=== PATIENT | male | born 1950 | race Caucasian/White ===

== ENCOUNTER → 2017-03-18 | Outpatient (REF) | payer MEDICARE, MEDICAID ==
[2017-03-18 13:29] LABS: ALBUMIN/GLOBULIN RATIO 1.38 (1.00-1.93); ALKALINE PHOSPHATASE 90 U/L (45-117); ALT/SGPT 28 U/L (12-78); ANION GAP 6 MEQ/L (8-16); AST/SGOT 15 U/L (15-37); BILIRUBIN,TOTAL 0.8 MG/DL (0.2-1.0); BLOOD UREA NITROGEN 19 MG/DL (7-18); CALCIUM LEVEL 9.1 MG/DL (8.8-10.2); CARBON DIOXIDE LEVEL 31 MEQ/L (21-32); CHLORIDE LEVEL 103 MEQ/L (98-107); CHOLESTEROL LEVEL 142 MG/DL (<200); CREATININE FOR GFR 1.02 MG/DL (0.70-1.30); GLOMERULAR FILTRATION RATE > 60.0 (>49); GLUCOSE, FASTING 152 MG/DL (80-110); POTASSIUM SERUM 4.7 MEQ/L (3.5-5.1); SODIUM LEVEL 140 MEQ/L (136-145); TOTAL PROTEIN 6.9 GM/DL (6.4-8.2); TRIGLYCERIDES LEVEL 253 MG/DL (<150)
== END ==
LOC: M SFHCCLAY 07:12
PROVIDERS: ATTEND Family Medicine
DX: E78.2 Mixed hyperlipidemia (principal); E11.65 Type 2 diabetes mellitus with hyperglycemia

== ENCOUNTER → 2017-09-07 | Outpatient (REF) | payer MEDICARE, MEDICAID ==
[2017-09-07 11:56] LABS: ESTIMATED AVERAGE GLUCOSE 154 MG/DL (60-110)
[2017-09-07 11:59] LABS: ALKALINE PHOSPHATASE 82 U/L (45-117); ALT/SGPT 26 U/L (12-78); ANION GAP 6 MEQ/L (8-16); AST/SGOT 17 U/L (7-37); BILIRUBIN,TOTAL 0.7 MG/DL (0.2-1.0); BLOOD UREA NITROGEN 22 MG/DL (7-18); CALCIUM LEVEL 8.8 MG/DL (8.8-10.2); CARBON DIOXIDE LEVEL 31 MEQ/L (21-32); CHLORIDE LEVEL 105 MEQ/L (98-107); CHOLESTEROL LEVEL 132 MG/DL (<200); CREATININE FOR GFR 0.94 MG/DL (0.70-1.30); GLOMERULAR FILTRATION RATE > 60.0 (>49); GLUCOSE, FASTING 164 MG/DL (70-100); HDL CHOLESTEROL 33 MG/DL (>40); LDL CHOLESTEROL 42.6 MG/DL (<100); NON-HDL-C 99 MG/DL; POTASSIUM SERUM 4.4 MEQ/L (3.5-5.1); PSA SCREENING 1.84 NG/ML (< 4.0); SODIUM LEVEL 142 MEQ/L (136-145); TOTAL PROTEIN 6.5 GM/DL (6.4-8.2); TRIGLYCERIDES LEVEL 282 MG/DL (<150)
== END ==
LOC: M SFHCCLAY 07:08
DX: E11.65 Type 2 diabetes mellitus with hyperglycemia (principal); E78.2 Mixed hyperlipidemia; Z12.5 Encounter for screening for malignant neoplasm of prostate
CPT/HCPCS: 80053

== ENCOUNTER → 2018-02-11 | Outpatient (REF) | payer MEDICARE, MEDICAID ==
[2018-02-11 11:39] LABS: ANION GAP 7 MEQ/L (8-16); BLOOD UREA NITROGEN 20 MG/DL (7-18); CALCIUM LEVEL 8.6 MG/DL (8.8-10.2); CARBON DIOXIDE LEVEL 30 MEQ/L (21-32); CHLORIDE LEVEL 105 MEQ/L (98-107); CREATININE FOR GFR 1.08 MG/DL (0.70-1.30); GLOMERULAR FILTRATION RATE > 60.0 (>49); GLUCOSE, FASTING 142 MG/DL (70-100); POTASSIUM SERUM 4.4 MEQ/L (3.5-5.1); SODIUM LEVEL 142 MEQ/L (136-145)
[2018-02-11 12:58] LABS: ESTIMATED AVERAGE GLUCOSE 151 MG/DL (60-110); HEMOGLOBIN A1c 6.9 %
== END ==
LOC: M SFHCCLAY 06:57
DX: E11.9 Type 2 diabetes mellitus without complications (principal)
CPT/HCPCS: 83036

== ENCOUNTER → 2018-08-02 | Outpatient (REF) | payer MEDICARE, MEDICAID ==
[2018-08-02 13:08] LABS: ALBUMIN 3.7 GM/DL (3.2-5.2); ALT/SGPT 30 U/L (12-78); BILIRUBIN,TOTAL 0.8 MG/DL (0.2-1.0); BLOOD UREA NITROGEN 20 MG/DL (7-18); CALCIUM LEVEL 8.6 MG/DL (8.8-10.2); CARBON DIOXIDE LEVEL 29 MEQ/L (21-32); CHLORIDE LEVEL 103 MEQ/L (98-107); CHOLESTEROL LEVEL 140 MG/DL (<200); CHOLESTEROL RISK RATIO 4.117 (<5); CREATININE FOR GFR 1.01 MG/DL (0.70-1.30); GLOMERULAR FILTRATION RATE > 60.0 (>49); GLUCOSE, FASTING 173 MG/DL (70-100); HDL CHOLESTEROL 34 MG/DL (>40); LDL CHOLESTEROL 53 MG/DL (<100); NON-HDL-C 106 MG/DL; POTASSIUM SERUM 4.3 MEQ/L (3.5-5.1); SODIUM LEVEL 139 MEQ/L (136-145); TOTAL PROTEIN 6.7 GM/DL (6.4-8.2); TRIGLYCERIDES LEVEL 265 MG/DL (<150)
[2018-08-02 13:25] LABS: MALB URINE SIEMENS 19.1 MG/L
[2018-08-02 13:45] LABS: HEMOGLOBIN A1c 7.7 %
== END ==
LOC: M SFHCCLAY 07:11
PROVIDERS: ATTEND Family Medicine
DX: E11.9 Type 2 diabetes mellitus without complications (principal)

== ENCOUNTER → 2018-11-01 | Outpatient (REF) | payer MEDICARE, MEDICAID ==
[2018-11-01 11:25] LABS: BASO # 0.1 10^3/uL (0.0-0.2); BASO % 0.5 % (0.0-1.0); EOS # 0.2 10^3/uL (0.0-0.50); EOS % 1.8 % (0.0-3.0); HEMATOCRIT 43.4 % (42.0-52.0); HEMOGLOBIN 15.3 g/dl (13.5-17.5); LYMPH # 1.8 10^3/uL (1.5-4.5); LYMPH % 17.6 % (24.0-44.0); MEAN CORPUSCULAR HEMOGLOBIN 31.8 pg (27.0-33.0); MEAN CORPUSCULAR HGB CONC 35.3 g/dl (32.0-36.5); MEAN CORPUSCULAR VOLUME 90.2 fl (80.0-96.0); MONO # 0.8 10^3/uL (0.0-0.8); MONO % 7.4 % (0.0-5.0); NEUTROPHILS # 7.6 10^3/uL (1.8-7.7); NEUTROPHILS % 72.4 % (36.0-66.0); PLATELET COUNT, AUTOMATED 135 10^3/uL (150-450); RED BLOOD COUNT 4.81 10^6/uL (4.30-6.10); WHITE BLOOD COUNT 10.4 10^3/uL (4.0-10.0)
[2018-11-01 12:13] LABS: BLOOD UREA NITROGEN 22 MG/DL (7-18); CALCIUM LEVEL 8.6 MG/DL (8.8-10.2); CARBON DIOXIDE LEVEL 28 MEQ/L (21-32); CHLORIDE LEVEL 105 MEQ/L (98-107); CREATININE FOR GFR 1.04 MG/DL (0.70-1.30); GLOMERULAR FILTRATION RATE > 60.0 (>42); GLUCOSE, FASTING 211 MG/DL (70-100); POTASSIUM SERUM 4.5 MEQ/L (3.5-5.1); SODIUM LEVEL 139 MEQ/L (136-145)
== END ==
LOC: M SFHCCLAY 07:06
PROVIDERS: ATTEND Family Medicine
DX: R59.0 Localized enlarged lymph nodes (principal); I10 Essential (primary) hypertension

== ENCOUNTER 2019-01-11 12:37 | Emergency (ER) | payer MEDICARE, MEDICAID ==
[~2019-01-11] VITALS: Ht 180.3 cm; Wt 129.7 kg
[2019-01-11 12:38] VITALS: BP 179/92
[2019-01-11] MEDS ORDERED: diazePAM 10 MG TAB PO ONE (14:15)
[2019-01-11] MEDS ORDERED: ACETAMINOPH W/CODEINE #3 TAB UD PO ONE (14:15)
[2019-01-11] MEDS ORDERED: RANO5TAB (14:42)
[2019-01-11] MEDS ORDERED: LISI10TA4 (14:42)
[2019-01-11] MEDS ORDERED: NITR0.4D6 (14:42)
[2019-01-11] MEDS ORDERED: SIMV20TA2 (14:42)
[2019-01-11] MEDS ORDERED: CLOP75TA2 (14:42)
[2019-01-11] MEDS ORDERED: FORT500T3 (14:42)
[2019-01-11] MEDS ORDERED: FISH1000 PO (14:42)
[2019-01-11] MEDS ORDERED: LOPR1TAB6 (14:42)
[2019-01-11] MEDS ORDERED: ASPI81TA85 PO (14:42)
[2019-01-11] MEDS ORDERED: NITROGLYCERIN (14:42)
--- NOTE | 2019-01-11 14:49 | REP ---
LUMBAR SPINE, FIVE VIEWS: HISTORY: Right back tenderness. There is no acute fracture. The lumbar intervertebral discs are decreased in height, consistent with disc degeneration. Osteophytes are present throughout the lumbar spine. There is narrowing of the L4-5 and L5-S1 facet joints with associated sclerosis. There are 6 mm of grade 1 spondylolisthesis of L4 on L5. Impression: Degenerative change as described above. Electronically Signed by Santana Dow MD 01/11/2019 02:50 P
[2019-01-11] MEDS ORDERED: TYLETAB14 PO (14:52)
[2019-01-11] MEDS ORDERED: VALI5TAB PO (14:52)
== END 2019-01-11 15:14 | disposition home or self-care (01) ==
LOC: M ED 12:37
DX: M51.37 Other intervertebral disc degeneration, lumbosacral region (principal); M54.5 Low back pain; M62.830 Muscle spasm of back; I10 Essential (primary) hypertension; I25.2 Old myocardial infarction; Z95.5 Presence of coronary angioplasty implant and graft; Z79.899 Other long term (current) drug therapy; Z79.02 Long term (current) use of antithrombotics/antiplatelets; Z79.82 Long term (current) use of aspirin

== ENCOUNTER → 2019-02-09 | Outpatient (REF) | payer MEDICARE, MEDICAID ==
[~2019-02-09] MED LIST: ASPI81TA85 PO; CLOP75TA2; FISH1000 PO; FORT500T3; LISI10TA4; LOPR1TAB6; NITR0.4D6; NITROGLYCERIN; RANO500T7; SIMV20TA2; TYLETAB14 PO; VALI5TAB PO
[2019-02-09 11:55] LABS: ALBUMIN 3.6 GM/DL (3.2-5.2); ALT/SGPT 22 U/L (12-78); BILIRUBIN,TOTAL 0.6 MG/DL (0.2-1.0); BLOOD UREA NITROGEN 20 MG/DL (7-18); CALCIUM LEVEL 8.6 MG/DL (8.8-10.2); CARBON DIOXIDE LEVEL 29 MEQ/L (21-32); CHLORIDE LEVEL 106 MEQ/L (98-107); CREATININE FOR GFR 0.91 MG/DL (0.70-1.30); GLOMERULAR FILTRATION RATE > 60.0 (>42); GLUCOSE, FASTING 175 MG/DL (70-100); POTASSIUM SERUM 4.1 MEQ/L (3.5-5.1); SODIUM LEVEL 141 MEQ/L (136-145); TOTAL PROTEIN 6.6 GM/DL (6.4-8.2)
[2019-02-09 13:20] LABS: HEMOGLOBIN A1c 7.6 %
== END ==
LOC: M SFHCCLAY 06:57
PROVIDERS: ATTEND Family Medicine
DX: E11.9 Type 2 diabetes mellitus without complications (principal)

== ENCOUNTER → 2019-08-11 | Outpatient (REF) | payer MEDICARE, MEDICAID ==
[~2019-08-11] MED LIST changes: -SIMV20TA2; +SIMV20TA22
[2019-08-11 17:29] LABS: ALBUMIN 3.8 GM/DL (3.2-5.2); ALT/SGPT 24 U/L (12-78); BLOOD UREA NITROGEN 20 MG/DL (7-18); CALCIUM LEVEL 9.1 MG/DL (8.8-10.2); CARBON DIOXIDE LEVEL 30 MEQ/L (21-32); CHLORIDE LEVEL 102 MEQ/L (98-107); CHOLESTEROL LEVEL 140 MG/DL (<200); CHOLESTEROL RISK RATIO 4.117 (<5); CREATININE FOR GFR 1.01 MG/DL (0.70-1.30); GLOMERULAR FILTRATION RATE > 60.0 (>42); GLUCOSE, FASTING 167 MG/DL (70-100); HDL CHOLESTEROL 34 MG/DL (>40); LDL CHOLESTEROL 50 MG/DL (<100); NON-HDL-C 106 MG/DL; POTASSIUM SERUM 4.6 MEQ/L (3.5-5.1); SODIUM LEVEL 139 MEQ/L (136-145); TOTAL PROTEIN 6.7 GM/DL (6.4-8.2); TRIGLYCERIDES LEVEL 280 MG/DL (<150)
[2019-08-11 17:45] LABS: CREATININE, URINE 61.4 MG/DL; MALB URINE SIEMENS 12.4 MG/L; MAU/CREAT RATIO 20.1 MCG/MG (0.0-30.0)
[2019-08-11 17:49] LABS: HEMOGLOBIN A1c 7.6 %
== END ==
LOC: M SFHCCLAY 11:22
PROVIDERS: ATTEND Family Medicine
DX: E11.9 Type 2 diabetes mellitus without complications (principal)

== ENCOUNTER → 2020-02-13 | Outpatient (REF) | payer MEDICARE, MEDICAID ==
[~2020-02-13] MED LIST changes: -ASPI81TA85 PO; +ASPI81TA86 PO
[2020-02-13 13:55] LABS: ALBUMIN 3.7 GM/DL (3.2-5.2); ALT/SGPT 24 U/L (12-78); BILIRUBIN,TOTAL 0.6 MG/DL (0.2-1.0); BLOOD UREA NITROGEN 15 MG/DL (7-18); CALCIUM LEVEL 8.6 MG/DL (8.8-10.2); CARBON DIOXIDE LEVEL 27 MEQ/L (21-32); CHLORIDE LEVEL 102 MEQ/L (98-107); GLOMERULAR FILTRATION RATE > 60.0 (>42); GLUCOSE, FASTING 286 MG/DL (70-100); POTASSIUM SERUM 4.1 MEQ/L (3.5-5.1); SODIUM LEVEL 136 MEQ/L (136-145); TOTAL PROTEIN 6.6 GM/DL (6.4-8.2)
[2020-02-13 19:12] LABS: HEMOGLOBIN A1c 9.4 %
== END ==
LOC: M SFHCCLAY 07:00
PROVIDERS: ATTEND Family Medicine
DX: E11.9 Type 2 diabetes mellitus without complications (principal)

== ENCOUNTER → 2020-05-15 | Outpatient (REF) | payer MEDICARE, MEDICAID ==
[2020-05-15 13:40] LABS: BASO % 0.4 % (0.0-1.0); EOS # 0.2 10^3/uL (0.0-0.5); EOS % 2.2 % (0.0-3.0); HEMATOCRIT 42.9 % (42.0-52.0); HEMOGLOBIN 14.7 g/dl (13.5-17.5); LYMPH # 2.5 10^3/uL (1.5-5.0); LYMPH % 26.3 % (24.0-44.0); MEAN CORPUSCULAR HEMOGLOBIN 31.7 pg (27.0-33.0); MEAN CORPUSCULAR HGB CONC 34.3 g/dl (32.0-36.5); MEAN CORPUSCULAR VOLUME 92.5 fl (80.0-96.0); MONO # 0.6 10^3/uL (0.0-0.8); MONO % 6.2 % (0.0-5.0); NEUTROPHILS # 6.2 10^3/uL (1.5-8.5); NEUTROPHILS % 64.6 % (36.0-66.0); PLATELET COUNT, AUTOMATED 158 10^3/uL (150-450); RED BLOOD COUNT 4.64 10^6/uL (4.30-6.10); WHITE BLOOD COUNT 9.5 10^3/uL (4.0-10.0)
[2020-05-15 14:02] LABS: BLOOD UREA NITROGEN 18 MG/DL (7-18); CARBON DIOXIDE LEVEL 29 MEQ/L (21-32); CHLORIDE LEVEL 105 MEQ/L (98-107); CREATININE FOR GFR 0.93 MG/DL (0.70-1.30); GLOMERULAR FILTRATION RATE > 60.0 (>42); GLUCOSE, FASTING 155 MG/DL (70-100); MAGNESIUM LEVEL 1.8 MG/DL (1.8-2.4); POTASSIUM SERUM 4.3 MEQ/L (3.5-5.1); SODIUM LEVEL 141 MEQ/L (136-145)
[2020-05-15 14:12] LABS: FOLATE 11.2 NG/ML (>5.4); VITAMIN B12 LEVEL 341 PG/ML (247-911)
[2020-05-15 14:55] LABS: HEMOGLOBIN A1c 7.3 %
== END ==
LOC: M SFHCCLAY 07:04
PROVIDERS: ATTEND Family Medicine
DX: I10 Essential (primary) hypertension (principal); E11.42 Type 2 diabetes mellitus with diabetic polyneuropathy; Z79.84 Long term (current) use of oral hypoglycemic drugs

== ENCOUNTER → 2020-08-16 | Outpatient (REF) | payer MEDICARE, MEDICAID ==
[2020-08-16 12:23] LABS: BLOOD UREA NITROGEN 19 MG/DL (7-18); CALCIUM LEVEL 8.9 MG/DL (8.8-10.2); CARBON DIOXIDE LEVEL 32 MEQ/L (21-32); CHLORIDE LEVEL 104 MEQ/L (98-107); CHOLESTEROL LEVEL 142 MG/DL (<200); CHOLESTEROL RISK RATIO 3.837 (<5); CREATININE FOR GFR 0.98 MG/DL (0.70-1.30); GLOMERULAR FILTRATION RATE > 60.0 (>42); GLUCOSE, FASTING 214 MG/DL (70-100); HDL CHOLESTEROL 37 MG/DL (>40); LDL CHOLESTEROL 47 MG/DL (<100); NON-HDL-C 105 MG/DL; POTASSIUM SERUM 4.4 MEQ/L (3.5-5.1); SODIUM LEVEL 139 MEQ/L (136-145); TRIGLYCERIDES LEVEL 291 MG/DL (<150)
[2020-08-16 15:20] LABS: HEMOGLOBIN A1c 7.6 %
[2020-08-17 12:38] LABS: CREATININE, URINE 71.3 MG/DL; MALB URINE SIEMENS 20.3 MG/L; MAU/CREAT RATIO 28.4 MCG/MG (0.0-30.0)
== END ==
LOC: M SFHCCLAY 06:59
PROVIDERS: ATTEND Family Medicine
DX: E11.9 Type 2 diabetes mellitus without complications (principal)

== ENCOUNTER → 2020-11-15 | Outpatient (REF) | payer MEDICARE, MEDICAID ==
[~2020-11-15] MED LIST changes: +LISI10TA22; -LISI10TA4
[2020-11-15 13:36] LABS: BLOOD UREA NITROGEN 20 MG/DL (7-18); CARBON DIOXIDE LEVEL 32 MEQ/L (21-32); CHLORIDE LEVEL 103 MEQ/L (98-107); CREATININE FOR GFR 0.96 MG/DL (0.70-1.30); GLOMERULAR FILTRATION RATE > 60.0 (>42); GLUCOSE, FASTING 309 MG/DL (70-100); POTASSIUM SERUM 4.4 MEQ/L (3.5-5.1); SODIUM LEVEL 138 MEQ/L (136-145)
[2020-11-15 14:22] LABS: HEMOGLOBIN A1c 9.7 %
== END ==
LOC: M SFHCCLAY 06:49
PROVIDERS: ATTEND Family Medicine
DX: E11.9 Type 2 diabetes mellitus without complications (principal)

== ENCOUNTER → 2021-02-13 | Outpatient (REF) | payer MEDICARE, MEDICAID ==
[2021-02-13 12:23] LABS: HEMOGLOBIN A1c 8.3 %
[2021-02-13 12:34] LABS: ALT/SGPT 31 U/L (12-78); BILIRUBIN,TOTAL 0.8 MG/DL (0.2-1.0); BLOOD UREA NITROGEN 18 MG/DL (7-18); CALCIUM LEVEL 8.8 MG/DL (8.8-10.2); CARBON DIOXIDE LEVEL 30 MEQ/L (21-32); CHLORIDE LEVEL 103 MEQ/L (98-107); CREATININE FOR GFR 0.97 MG/DL (0.70-1.30); GLOMERULAR FILTRATION RATE > 60.0 (>42); GLUCOSE, FASTING 188 MG/DL (70-100); POTASSIUM SERUM 4.1 MEQ/L (3.5-5.1); SODIUM LEVEL 139 MEQ/L (136-145); TOTAL PROTEIN 6.8 GM/DL (6.4-8.2)
== END ==
LOC: M SFHCCLAY 07:12
PROVIDERS: ATTEND Family Medicine
DX: E11.9 Type 2 diabetes mellitus without complications (principal)

== ENCOUNTER → 2021-05-16 | Outpatient (REF) | payer MEDICARE, MEDICAID ==
[2021-05-16 12:19] LABS: HEMOGLOBIN A1c 6.6 %
[2021-05-16 13:56] LABS: ALBUMIN 3.6 GM/DL (3.2-5.2); ALT/SGPT 25 U/L (12-78); BILIRUBIN,TOTAL 0.5 MG/DL (0.2-1.0); BLOOD UREA NITROGEN 20 MG/DL (7-18); CALCIUM LEVEL 9.3 MG/DL (8.8-10.2); CARBON DIOXIDE LEVEL 29 MEQ/L (21-32); CHLORIDE LEVEL 104 MEQ/L (98-107); GLOMERULAR FILTRATION RATE > 60.0 (>42); GLUCOSE, FASTING 194 MG/DL (70-100); POTASSIUM SERUM 4.3 MEQ/L (3.5-5.1); SODIUM LEVEL 140 MEQ/L (136-145); TOTAL PROTEIN 6.5 GM/DL (6.4-8.2)
== END ==
LOC: M SFHCCLAY 06:57
PROVIDERS: ATTEND Family Medicine
DX: E11.9 Type 2 diabetes mellitus without complications (principal)

== ENCOUNTER → 2021-08-29 | Outpatient (REF) | payer MEDICARE, MEDICAID ==
[2021-08-29 11:47] LABS: BASO % 0.4 % (0.0-1.0); EOS # 0.2 10^3/uL (0.0-0.5); EOS % 1.5 % (0.0-3.0); HEMATOCRIT 47.5 % (42.0-52.0); HEMOGLOBIN 16.3 g/dl (13.5-17.5); LYMPH # 1.9 10^3/uL (1.5-5.0); LYMPH % 18.6 % (24.0-44.0); MEAN CORPUSCULAR HEMOGLOBIN 31.9 pg (27.0-33.0); MEAN CORPUSCULAR HGB CONC 34.3 g/dl (32.0-36.5); MONO # 0.8 10^3/uL (0.0-0.8); MONO % 7.6 % (2.0-8.0); NEUTROPHILS # 7.5 10^3/uL (1.5-8.5); NEUTROPHILS % 71.4 % (36.0-66.0); PLATELET COUNT, AUTOMATED 145 10^3/uL (150-450); RED BLOOD COUNT 5.11 10^6/uL (4.30-6.10); WHITE BLOOD COUNT 10.4 10^3/uL (4.0-10.0)
[2021-08-29 12:23] LABS: ALBUMIN 3.7 GM/DL (3.2-5.2); ALT/SGPT 24 U/L (12-78); BILIRUBIN,TOTAL 0.7 MG/DL (0.2-1.0); BLOOD UREA NITROGEN 17 MG/DL (7-18); CALCIUM LEVEL 8.9 MG/DL (8.8-10.2); CARBON DIOXIDE LEVEL 30 MEQ/L (21-32); CHLORIDE LEVEL 105 MEQ/L (98-107); CHOLESTEROL LEVEL 124 MG/DL (<200); CHOLESTEROL RISK RATIO 3.647 (<5); CREATININE FOR GFR 1.03 MG/DL (0.70-1.30); GLOMERULAR FILTRATION RATE > 60.0 (>42); GLUCOSE, FASTING 174 MG/DL (70-100); HDL CHOLESTEROL 34 MG/DL (>40); LDL CHOLESTEROL 47 MG/DL (<100); NON-HDL-C 90 MG/DL; POTASSIUM SERUM 4.4 MEQ/L (3.5-5.1); SODIUM LEVEL 141 MEQ/L (136-145); TOTAL PROTEIN 6.6 GM/DL (6.4-8.2); TRIGLYCERIDES LEVEL 217 MG/DL (<150)
[2021-08-29 12:29] LABS: HEMOGLOBIN A1c 6.8 %
== END ==
LOC: M SFHCCLAY 08:21
PROVIDERS: ATTEND Family Medicine
DX: E11.9 Type 2 diabetes mellitus without complications (principal); E78.2 Mixed hyperlipidemia; I10 Essential (primary) hypertension

== ENCOUNTER 2021-11-13 11:04 | Inpatient (IN) | payer MEDICARE, MEDICAID ==
[~2021-11-13] VITALS: Ht 180.3 cm; Wt 126.0 kg
[2021-11-13 14:18] VITALS: BP 158/90
[2021-11-13] MEDS ORDERED: GLUCAGON INJ 1MG VIAL SC PRN (15:20)
[2021-11-13] MEDS ORDERED: DEXTROSE 50% 50 ML SYRINGE IV PRN (15:20)
[2021-11-13] MEDS ORDERED: GLUCOSE 4GM CHEW TABLET PO PRN (15:20)
[2021-11-13 15:57] LABS: BASO % 0.3 % (0.0-1.0); EOS % 0.3 % (0.0-3.0); HEMATOCRIT 43.8 % (42.0-52.0); HEMOGLOBIN 15.4 g/dl (13.5-17.5); MEAN CORPUSCULAR HGB CONC 35.2 g/dl (32.0-36.5); MEAN CORPUSCULAR VOLUME 91.1 fl (80.0-96.0); MONO # 0.7 10^3/uL (0.0-0.8); NEUTROPHILS # 6.5 10^3/uL (1.5-8.5); NEUTROPHILS % 70.1 % (36.0-66.0); PLATELET COUNT, AUTOMATED 165 10^3/uL (150-450); RED BLOOD COUNT 4.81 10^6/uL (4.30-6.10); WHITE BLOOD COUNT 9.3 10^3/uL (4.0-10.0)
[2021-11-13 15:58] VITALS: BP 118/69
[2021-11-13 16:12] LABS: INR 0.87; PARTIAL THROMBOPLASTIN TIME 27.5 SECONDS (25.9-37.0); PROTHROMBIN TIME 12.2 SECONDS (12.7-14.5)
[2021-11-13 16:28] LABS: ALBUMIN 3.5 GM/DL (3.2-5.2); ALT/SGPT 25 U/L (12-78); BILIRUBIN,TOTAL 0.7 MG/DL (0.2-1.0); BLOOD UREA NITROGEN 21 MG/DL (7-18); CARBON DIOXIDE LEVEL 29 MEQ/L (21-32); CHLORIDE LEVEL 106 MEQ/L (98-107); CREATININE FOR GFR 0.99 MG/DL (0.70-1.30); GLOMERULAR FILTRATION RATE > 60.0 (>42); GLUCOSE, FASTING 143 MG/DL (70-100); POTASSIUM SERUM 3.9 MEQ/L (3.5-5.1); SODIUM LEVEL 142 MEQ/L (136-145); TOTAL PROTEIN 6.7 GM/DL (6.4-8.2)
[2021-11-13 16:29] LABS: C REACTIVE PROTEIN QUANTITATIV 1.68 MG/DL (0.00-0.30); CK-MB VALUE MASS 1.8 NG/ML (<3.6); MB/CK RELATIVE INDEX 4.5 (< OR =4)
[2021-11-13] MEDS ORDERED: FUROSEMIDE 40MG/4ML VIAL (J1940) IV ONE (17:00)
[2021-11-13] MEDS ORDERED: ALBUTEROL SULFATE 2.5 MG/0.5 ML INH NEB SOLN NEB PRN (17:10)
[2021-11-13] MEDS ORDERED: PLAV1TAB2 PO (17:29)
[2021-11-13] MEDS ORDERED: LYRI200C PO (17:29)
[2021-11-13] MEDS ORDERED: JANU50TA25 PO (17:29)
[2021-11-13] MEDS ORDERED: METO50TA7 PO (17:29)
[2021-11-13] MEDS ORDERED: LISI10TA22 PO (17:29)
[2021-11-13] MEDS ORDERED: RANO500T7 PO (17:29)
[2021-11-13] MEDS ORDERED: JARD1TAB PO (17:29)
[2021-11-13] MEDS ORDERED: NITR0.4D6 TD (17:29)
[2021-11-13] MEDS ORDERED: SIMV20TA22 PO (17:29)
[2021-11-13] MEDS ORDERED: HOME MED LIST COMPLETE! XX SCH (17:35)
[2021-11-13] MEDS: HumaLOG INSULIN (NovoLOG) PER UNIT SC SCH ×2 (17:40→21:19)
[2021-11-13] MEDS ORDERED: ONDANSETRON 4MG/2ML VIAL IV PRN (18:30)
[2021-11-13 20:06] VITALS: BP 110/70
[2021-11-13] MEDS: **NOTE PATIENT COMMENT** MISC XX SCH (21:05)
[2021-11-13 21:06] VITALS: BP 89/50
[2021-11-13] MEDS: SIMVASTATIN 20 MG TAB PO SCH (21:19)
[2021-11-13] MEDS: PREGABALIN 100 MG CAP (LYRICA) PO SCH (21:19)
[2021-11-13] MEDS: RANOLAZINE 500 MG ER TAB PO SCH (21:19)
[2021-11-14] VITALS (8 sets, daily range): BP systolic 119–166; BP diastolic 61–80
[2021-11-14] MEDS: PREGABALIN 100 MG CAP (LYRICA) PO SCH ×2 (08:36→20:33)
[2021-11-14] MEDS: HumaLOG INSULIN (NovoLOG) PER UNIT SC SCH ×4 (08:36→20:33)
[2021-11-14] MEDS: OSELTAMIVIR PHOSPHATE 75 MG CAP (TAMIFLU) PO SCH ×2 (08:36→20:33)
[2021-11-14] MEDS: CLOPIDOGREL 75 MG TAB PO SCH (08:37)
[2021-11-14] MEDS: RANOLAZINE 500 MG ER TAB PO SCH ×2 (08:37→20:33)
[2021-11-14] MEDS: NITROGLYCERIN 0.4 MG/HR PATCH TD SCH (08:56)
[2021-11-14] MEDS ORDERED: PREVNAR 13 VACCINE SYRINGE IM ONE (09:00)
[2021-11-14] MEDS ORDERED: FUROSEMIDE 40MG/4ML VIAL (J1940) IV ONE (10:15)
[2021-11-14 11:12] LABS: BASO % 0.2 % (0.0-1.0); EOS % 0.3 % (0.0-3.0); HEMATOCRIT 45.5 % (42.0-52.0); HEMOGLOBIN 15.5 g/dl (13.5-17.5); LYMPH # 1.4 10^3/uL (1.5-5.0); LYMPH % 11.4 % (24.0-44.0); MEAN CORPUSCULAR HEMOGLOBIN 31.1 pg (27.0-33.0); MEAN CORPUSCULAR HGB CONC 34.1 g/dl (32.0-36.5); MEAN CORPUSCULAR VOLUME 91.4 fl (80.0-96.0); MONO # 0.7 10^3/uL (0.0-0.8); MONO % 5.5 % (2.0-8.0); NEUTROPHILS # 10.3 10^3/uL (1.5-8.5); NEUTROPHILS % 82.2 % (36.0-66.0); PLATELET COUNT, AUTOMATED 155 10^3/uL (150-450); RED BLOOD COUNT 4.98 10^6/uL (4.30-6.10); WHITE BLOOD COUNT 12.5 10^3/uL (4.0-10.0)
[2021-11-14 11:32] LABS: BLOOD UREA NITROGEN 24 MG/DL (7-18); CALCIUM LEVEL 8.7 MG/DL (8.8-10.2); CARBON DIOXIDE LEVEL 31 MEQ/L (21-32); CHLORIDE LEVEL 104 MEQ/L (98-107); CREATININE FOR GFR 1.11 MG/DL (0.70-1.30); GLOMERULAR FILTRATION RATE > 60.0 (>42); GLUCOSE, FASTING 232 MG/DL (70-100); SODIUM LEVEL 141 MEQ/L (136-145)
[2021-11-14] MEDS: ALBUTEROL SULFATE 2.5 MG/0.5 ML INH NEB SOLN NEB SCH ×2 (13:12→19:55)
[2021-11-14] MEDS ORDERED: fentaNYL 100 MCG/2 ML INJECTION As Ordered ONE (17:22)
[2021-11-14] MEDS ORDERED: MIDAZOLAM INJ 2MG/2ML VIAL (J2250 PER 1MG) As Ordered ONE (17:22)
[2021-11-14] MEDS ORDERED: LIDOCAINE 2% 100MG/5ML SDV (FOR ANES.) As Ordered ONE (17:23)
[2021-11-14] MEDS ORDERED: propofoL 200 MG/20 ML VIAL As Ordered ONE (17:23)
[2021-11-14] MEDS ORDERED: BUPIVACAINE HCL 0.5% 30ML VIAL As Ordered ONE (17:28)
[2021-11-14] MEDS ORDERED: LIDOCAINE 1% SDV 30ML VIAL As Ordered ONE (17:28)
[2021-11-14] MEDS ORDERED: fentaNYL 100 MCG/2 ML INJECTION IV PRN (18:20)
[2021-11-14] MEDS ORDERED: LR 1,000 ML IV SCH (18:20)
[2021-11-14] MEDS: SIMVASTATIN 20 MG TAB PO SCH (20:33)
[2021-11-14] MEDS: **NOTE PATIENT COMMENT** MISC XX SCH (20:36)
[2021-11-15] VITALS (7 sets, daily range): BP systolic 120–151; BP diastolic 63–88
[2021-11-15] MEDS: ALBUTEROL SULFATE 2.5 MG/0.5 ML INH NEB SOLN NEB SCH ×3 (07:44→19:26)
[2021-11-15 08:01] LABS: BASO % 0.2 % (0.0-1.0); EOS # 0.1 10^3/uL (0.0-0.5); EOS % 0.5 % (0.0-3.0); HEMATOCRIT 47.5 % (42.0-52.0); HEMOGLOBIN 16.6 g/dl (13.5-17.5); LYMPH # 1.8 10^3/uL (1.5-5.0); LYMPH % 15.4 % (24.0-44.0); MEAN CORPUSCULAR HEMOGLOBIN 31.9 pg (27.0-33.0); MEAN CORPUSCULAR HGB CONC 34.9 g/dl (32.0-36.5); MEAN CORPUSCULAR VOLUME 91.3 fl (80.0-96.0); MONO # 0.7 10^3/uL (0.0-0.8); NEUTROPHILS % 77.4 % (36.0-66.0); PLATELET COUNT, AUTOMATED 178 10^3/uL (150-450); WHITE BLOOD COUNT 11.6 10^3/uL (4.0-10.0)
[2021-11-15 08:29] LABS: BLOOD UREA NITROGEN 20 MG/DL (7-18); CALCIUM LEVEL 8.9 MG/DL (8.8-10.2); CARBON DIOXIDE LEVEL 32 MEQ/L (21-32); CHLORIDE LEVEL 104 MEQ/L (98-107); CREATININE FOR GFR 1.09 MG/DL (0.70-1.30); GLOMERULAR FILTRATION RATE > 60.0 (>42); GLUCOSE, FASTING 193 MG/DL (70-100); POTASSIUM SERUM 4.2 MEQ/L (3.5-5.1); SODIUM LEVEL 140 MEQ/L (136-145)
[2021-11-15] MEDS: HumaLOG INSULIN (NovoLOG) PER UNIT SC SCH ×4 (08:35→20:50)
[2021-11-15] MEDS: PREGABALIN 100 MG CAP (LYRICA) PO SCH ×2 (08:35→20:50)
[2021-11-15] MEDS: CLOPIDOGREL 75 MG TAB PO SCH (08:35)
[2021-11-15] MEDS: OSELTAMIVIR PHOSPHATE 75 MG CAP (TAMIFLU) PO SCH ×2 (08:35→20:50)
[2021-11-15] MEDS: RANOLAZINE 500 MG ER TAB PO SCH ×2 (08:35→20:50)
[2021-11-15] MEDS: NITROGLYCERIN 0.4 MG/HR PATCH TD SCH (08:36)
[2021-11-15] MEDS ORDERED: ELIQ5TAB PO (09:25)
[2021-11-15] MEDS: FUROSEMIDE 40 MG TAB PO SCH (09:56)
[2021-11-15] MEDS: SIMVASTATIN 20 MG TAB PO SCH (20:50)
[2021-11-15] MEDS: **NOTE PATIENT COMMENT** MISC XX SCH (21:16)
[2021-11-15] MEDS: CEPHALEXIN 500 MG CAP PO SCH (21:18)
[2021-11-16 01:20] VITALS: BP 136/71
[2021-11-16 04:00] VITALS: BP 140/86
[2021-11-16 04:34] LABS: BASO % 0.3 % (0.0-1.0); EOS # 0.1 10^3/uL (0.0-0.5); EOS % 0.8 % (0.0-3.0); HEMATOCRIT 42.3 % (42.0-52.0); HEMOGLOBIN 14.9 g/dl (13.5-17.5); LYMPH # 1.9 10^3/uL (1.5-5.0); LYMPH % 19.2 % (24.0-44.0); MEAN CORPUSCULAR HEMOGLOBIN 32.3 pg (27.0-33.0); MEAN CORPUSCULAR HGB CONC 35.2 g/dl (32.0-36.5); MEAN CORPUSCULAR VOLUME 91.8 fl (80.0-96.0); MONO # 0.7 10^3/uL (0.0-0.8); MONO % 6.9 % (2.0-8.0); NEUTROPHILS # 7.2 10^3/uL (1.5-8.5); NEUTROPHILS % 72.3 % (36.0-66.0); PLATELET COUNT, AUTOMATED 150 10^3/uL (150-450); RED BLOOD COUNT 4.61 10^6/uL (4.30-6.10); WHITE BLOOD COUNT 9.9 10^3/uL (4.0-10.0)
[2021-11-16 04:55] LABS: BLOOD UREA NITROGEN 21 MG/DL (7-18); CALCIUM LEVEL 8.6 MG/DL (8.8-10.2); CARBON DIOXIDE LEVEL 32 MEQ/L (21-32); CHLORIDE LEVEL 107 MEQ/L (98-107); CREATININE FOR GFR 1.13 MG/DL (0.70-1.30); GLOMERULAR FILTRATION RATE > 60.0 (>42); GLUCOSE, FASTING 221 MG/DL (70-100); MAGNESIUM LEVEL 2.1 MG/DL (1.8-2.4); SODIUM LEVEL 142 MEQ/L (136-145)
[2021-11-16 06:00] VITALS: BP 140/80
[2021-11-16] MEDS: CEPHALEXIN 500 MG CAP PO SCH ×3 (06:21→21:17)
[2021-11-16] MEDS: ALBUTEROL SULFATE 2.5 MG/0.5 ML INH NEB SOLN NEB SCH ×3 (07:17→19:26)
[2021-11-16] MEDS: HumaLOG INSULIN (NovoLOG) PER UNIT SC SCH ×4 (10:33→20:48)
[2021-11-16] MEDS: FUROSEMIDE 40 MG TAB PO SCH (10:37)
[2021-11-16] MEDS: OSELTAMIVIR PHOSPHATE 75 MG CAP (TAMIFLU) PO SCH ×2 (10:37→20:47)
[2021-11-16] MEDS: PREGABALIN 100 MG CAP (LYRICA) PO SCH ×2 (10:37→20:47)
[2021-11-16] MEDS: RANOLAZINE 500 MG ER TAB PO SCH ×2 (10:37→20:47)
[2021-11-16] MEDS: CLOPIDOGREL 75 MG TAB PO SCH (10:38)
[2021-11-16] MEDS: NITROGLYCERIN 0.4 MG/HR PATCH TD SCH (10:47)
[2021-11-16] MEDS ORDERED: FUROSEMIDE 40MG/4ML VIAL (J1940) IV ONE (11:15)
[2021-11-16 14:00] VITALS: BP 152/79
[2021-11-16] MEDS: SIMVASTATIN 20 MG TAB PO SCH (20:47)
[2021-11-16] MEDS: **NOTE PATIENT COMMENT** MISC XX SCH (21:00)
[2021-11-16 22:00] VITALS: BP 130/72
[2021-11-17 05:13] VITALS: BP 114/76
[2021-11-17] MEDS: CEPHALEXIN 500 MG CAP PO SCH ×3 (06:08→21:54)
[2021-11-17 06:47] LABS: BASO % 0.3 % (0.0-1.0); EOS # 0.1 10^3/uL (0.0-0.5); EOS % 1.3 % (0.0-3.0); HEMOGLOBIN 14.6 g/dl (13.5-17.5); LYMPH # 1.3 10^3/uL (1.5-5.0); LYMPH % 13.5 % (24.0-44.0); MEAN CORPUSCULAR HEMOGLOBIN 32.2 pg (27.0-33.0); MEAN CORPUSCULAR HGB CONC 34.8 g/dl (32.0-36.5); MEAN CORPUSCULAR VOLUME 92.7 fl (80.0-96.0); MONO # 0.7 10^3/uL (0.0-0.8); MONO % 7.4 % (2.0-8.0); NEUTROPHILS # 7.6 10^3/uL (1.5-8.5); NEUTROPHILS % 76.9 % (36.0-66.0); PLATELET COUNT, AUTOMATED 160 10^3/uL (150-450); RED BLOOD COUNT 4.53 10^6/uL (4.30-6.10); WHITE BLOOD COUNT 9.9 10^3/uL (4.0-10.0)
[2021-11-17 07:09] LABS: BLOOD UREA NITROGEN 17 MG/DL (7-18); CALCIUM LEVEL 8.5 MG/DL (8.8-10.2); CARBON DIOXIDE LEVEL 30 MEQ/L (21-32); CHLORIDE LEVEL 104 MEQ/L (98-107); GLOMERULAR FILTRATION RATE > 60.0 (>42); GLUCOSE, FASTING 221 MG/DL (70-100); POTASSIUM SERUM 3.7 MEQ/L (3.5-5.1); SODIUM LEVEL 139 MEQ/L (136-145)
[2021-11-17] MEDS: ALBUTEROL SULFATE 2.5 MG/0.5 ML INH NEB SOLN NEB SCH ×3 (07:23→19:03)
[2021-11-17 09:00] VITALS: BP 127/71
[2021-11-17] MEDS: NITROGLYCERIN 0.4 MG/HR PATCH TD SCH (09:00)
[2021-11-17] MEDS: PREGABALIN 100 MG CAP (LYRICA) PO SCH ×2 (09:27→20:43)
[2021-11-17] MEDS: OSELTAMIVIR PHOSPHATE 75 MG CAP (TAMIFLU) PO SCH ×2 (09:28→20:43)
[2021-11-17] MEDS: CLOPIDOGREL 75 MG TAB PO SCH (09:28)
[2021-11-17] MEDS: HumaLOG INSULIN (NovoLOG) PER UNIT SC SCH ×4 (09:28→20:44)
[2021-11-17] MEDS: RANOLAZINE 500 MG ER TAB PO SCH ×2 (09:30→20:43)
[2021-11-17] MEDS: FUROSEMIDE 40 MG TAB PO SCH (09:30)
[2021-11-17] MEDS: APIXABAN 5 MG TAB (ELIQUIS) PO SCH ×2 (09:30→20:43)
[2021-11-17 09:39] VITALS: BP 127/71
[2021-11-17] MEDS: LevoFLOXacin 750 MG TABLET PO SCH (10:31)
[2021-11-17 14:00] VITALS: BP 122/71
[2021-11-17] MEDS: LEVEMIR (INSULIN DETEMIR) 1 UNITS/0.01ML SC SCH (14:18)
[2021-11-17 18:00] VITALS: BP 119/71
[2021-11-17] MEDS: SIMVASTATIN 20 MG TAB PO SCH (20:43)
[2021-11-17] MEDS: **NOTE PATIENT COMMENT** MISC XX SCH (20:44)
[2021-11-18 06:00] VITALS: BP 153/91
[2021-11-18 06:06] LABS: BASO % 0.3 % (0.0-1.0); EOS # 0.1 10^3/uL (0.0-0.5); EOS % 1.2 % (0.0-3.0); HEMATOCRIT 40.8 % (42.0-52.0); HEMOGLOBIN 14.2 g/dl (13.5-17.5); LYMPH # 1.6 10^3/uL (1.5-5.0); MEAN CORPUSCULAR HEMOGLOBIN 32.3 pg (27.0-33.0); MEAN CORPUSCULAR HGB CONC 34.8 g/dl (32.0-36.5); MEAN CORPUSCULAR VOLUME 92.9 fl (80.0-96.0); MONO # 0.6 10^3/uL (0.0-0.8); MONO % 6.5 % (2.0-8.0); NEUTROPHILS # 7.2 10^3/uL (1.5-8.5); NEUTROPHILS % 74.3 % (36.0-66.0); PLATELET COUNT, AUTOMATED 165 10^3/uL (150-450); RED BLOOD COUNT 4.39 10^6/uL (4.30-6.10); WHITE BLOOD COUNT 9.7 10^3/uL (4.0-10.0)
[2021-11-18] MEDS: CEPHALEXIN 500 MG CAP PO SCH ×2 (06:23→14:47)
[2021-11-18] MEDS: LevoFLOXacin 750 MG TABLET PO SCH (06:23)
[2021-11-18 06:25] LABS: BLOOD UREA NITROGEN 17 MG/DL (7-18); CALCIUM LEVEL 8.6 MG/DL (8.8-10.2); CARBON DIOXIDE LEVEL 32 MEQ/L (21-32); CHLORIDE LEVEL 105 MEQ/L (98-107); CREATININE FOR GFR 1.01 MG/DL (0.70-1.30); GLOMERULAR FILTRATION RATE > 60.0 (>42); GLUCOSE, FASTING 197 MG/DL (70-100); POTASSIUM SERUM 4.3 MEQ/L (3.5-5.1); SODIUM LEVEL 140 MEQ/L (136-145)
[2021-11-18] MEDS: ALBUTEROL SULFATE 2.5 MG/0.5 ML INH NEB SOLN NEB SCH ×2 (07:13→13:28)
[2021-11-18] MEDS: NITROGLYCERIN 0.4 MG/HR PATCH TD SCH (09:00)
[2021-11-18] MEDS: LEVEMIR (INSULIN DETEMIR) 1 UNITS/0.01ML SC SCH (09:39)
[2021-11-18] MEDS: OSELTAMIVIR PHOSPHATE 75 MG CAP (TAMIFLU) PO SCH (09:40)
[2021-11-18] MEDS: HumaLOG INSULIN (NovoLOG) PER UNIT SC SCH ×3 (09:40→16:37)
[2021-11-18] MEDS: RANOLAZINE 500 MG ER TAB PO SCH (09:40)
[2021-11-18] MEDS: PREGABALIN 100 MG CAP (LYRICA) PO SCH (09:41)
[2021-11-18] MEDS: FUROSEMIDE 40 MG TAB PO SCH (09:41)
[2021-11-18] MEDS: CLOPIDOGREL 75 MG TAB PO SCH (09:41)
[2021-11-18] MEDS: APIXABAN 5 MG TAB (ELIQUIS) PO SCH (09:41)
[2021-11-18] MEDS ORDERED: LINE1TAB6 PO (13:11)
[2021-11-18] MEDS ORDERED: OSEL75CA PO (13:16)
[2021-11-18 14:00] VITALS: BP 104/85
[2021-11-18 15:17] VITALS: BP 121/78
[2021-11-18] MEDS ORDERED: LINEZOLID 600MG TABLET (ZYVOX) PO ONE (17:00)
== END 2021-11-18 18:12 | disposition home or self-care (01) | DRG 256 ==
LOC: M PCU 13:53 → M MSPAV 11-15 15:00
PROVIDERS: ADMIT Internal Medicine; ATTEND Internal Medicine Nephrology
PROC: 0Y6S0Z0 Detachment at Left 2nd Toe, Complete, Open Approach (ICD-10-PCS; principal; 2021-11-14 12:04)
DX: I11.0 Hypertensive heart disease with heart failure (principal); L03.116 Cellulitis of left lower limb; M86.172 Other acute osteomyelitis, left ankle and foot; E11.52 Type 2 diabetes mellitus with diabetic peripheral angiopathy with gangrene; I48.19 Other persistent atrial fibrillation; I50.30 Unspecified diastolic (congestive) heart failure; E11.42 Type 2 diabetes mellitus with diabetic polyneuropathy; I25.10 Atherosclerotic heart disease of native coronary artery without angina pectoris; E78.5 Hyperlipidemia, unspecified; E66.9 Obesity, unspecified; G47.33 Obstructive sleep apnea (adult) (pediatric); J09.X2 Influenza due to identified novel influenza A virus with other respiratory manifestations; Z79.899 Other long term (current) drug therapy; Z20.822 Contact with and (suspected) exposure to COVID-19; Z95.5 Presence of coronary angioplasty implant and graft; Z87.891 Personal history of nicotine dependence; E11.69 Type 2 diabetes mellitus with other specified complication; Z91.19 Patient's noncompliance with other medical treatment and regimen; I27.20 Pulmonary hypertension, unspecified; E11.621 Type 2 diabetes mellitus with foot ulcer; L97.529 Non-pressure chronic ulcer of other part of left foot with unspecified severity; I73.9 Peripheral vascular disease, unspecified

== ENCOUNTER → 2021-11-26 | Outpatient (POV) | payer MEDICARE, MEDICAID ==
[~2021-11-26] VITALS: Ht 180.3 cm; Wt 118.1 kg
[~2021-11-26] MED LIST changes: +ELIQ5TAB PO; +JANU50TA25 PO; +JARD1TAB PO; +LINE1TAB6 PO; +LISI10TA22 PO; +LYRI200C PO; +METO50TA7 PO; +NITR0.4D6 TD; +OSEL75CA PO; +PLAV1TAB2 PO; +RANO500T7 PO; +SIMV20TA22 PO
[2021-11-26 13:50] VITALS: BP 163/80
== END ==
LOC: M IRPOV 13:42
PROVIDERS: ATTEND Radiology Diagnostic Radiology
DX: I70.245 Atherosclerosis of native arteries of left leg with ulceration of other part of foot (principal); E11.51 Type 2 diabetes mellitus with diabetic peripheral angiopathy without gangrene; Z87.891 Personal history of nicotine dependence; Z89.422 Acquired absence of other left toe(s)

== ENCOUNTER → 2021-12-05 | Outpatient (CLI) | payer MEDICARE, MEDICAID ==
[~2021-12-05] MED LIST changes: +ISOVUE-300 61% 50ML VIAL As Ordered ONE; +LIDOCAINE 1% MDV 20ML VIAL As Ordered ONE; +MIDAZOLAM INJ 2MG/2ML VIAL (J2250 PER 1MG) As Ordered ONE; +NS 1,000 ML IV SCH; +ONDANSETRON 4MG/2ML VIAL IV PRN; +PERCOCET 5MG/325MG TAB As Ordered ONE; +PERCOCET 5MG/325MG TAB PO PRN; +diphenhydrAMINE 50MG/ML VIAL (J1200) As Ordered ONE; +fentaNYL 100 MCG/2 ML INJECTION As Ordered ONE; +hydrALAZINE 20MG/ML 1ML VIAL (J0360 PER 20MG) As Ordered ONE
[2021-12-05 15:30] VITALS: BP 167/90
== END ==
LOC: M IRPRO 07:41
PROVIDERS: ATTEND Radiology Diagnostic Radiology
DX: I70.248 Atherosclerosis of native arteries of left leg with ulceration of other part of lower leg (principal); I70.92 Chronic total occlusion of artery of the extremities
CPT/HCPCS: 36245; 75630; 75774; 99152; 99153; C1769; C1887; C1894; J0360; J1644; J2250; J3010; Q9967

== ENCOUNTER → 2021-12-24 | Outpatient (POV) | payer MEDICARE, MEDICAID ==
[~2021-12-24] VITALS: Ht 180.3 cm; Wt 127.2 kg
[~2021-12-24] MED LIST changes: -ISOVUE-300 61% 50ML VIAL As Ordered ONE; -LIDOCAINE 1% MDV 20ML VIAL As Ordered ONE; -MIDAZOLAM INJ 2MG/2ML VIAL (J2250 PER 1MG) As Ordered ONE; -NS 1,000 ML IV SCH; -ONDANSETRON 4MG/2ML VIAL IV PRN; -PERCOCET 5MG/325MG TAB As Ordered ONE; -PERCOCET 5MG/325MG TAB PO PRN; -diphenhydrAMINE 50MG/ML VIAL (J1200) As Ordered ONE; -fentaNYL 100 MCG/2 ML INJECTION As Ordered ONE; -hydrALAZINE 20MG/ML 1ML VIAL (J0360 PER 20MG) As Ordered ONE
[2021-12-24 08:35] VITALS: BP 175/82
== END ==
LOC: M IRPOV 08:26
PROVIDERS: ATTEND Radiology Diagnostic Radiology
DX: I70.222 Atherosclerosis of native arteries of extremities with rest pain, left leg (principal); L97.929 Non-pressure chronic ulcer of unspecified part of left lower leg with unspecified severity; I70.92 Chronic total occlusion of artery of the extremities

== ENCOUNTER → 2021-12-26 | Outpatient (REF) | payer MEDICARE, MEDICAID ==
[~2021-12-26] MED LIST changes: +ASPI81TA26 PO
[2021-12-26 16:01] LABS: BASO % 0.3 % (0.0-1.0); EOS # 0.1 10^3/uL (0.0-0.5); EOS % 1.2 % (0.0-3.0); HEMATOCRIT 43.2 % (42.0-52.0); HEMOGLOBIN 13.7 g/dl (13.5-17.5); LYMPH # 1.3 10^3/uL (1.5-5.0); LYMPH % 14.6 % (24.0-44.0); MEAN CORPUSCULAR HEMOGLOBIN 30.7 pg (27.0-33.0); MEAN CORPUSCULAR HGB CONC 31.7 g/dl (32.0-36.5); MEAN CORPUSCULAR VOLUME 96.9 fl (80.0-96.0); MONO # 0.6 10^3/uL (0.0-0.8); MONO % 6.7 % (2.0-8.0); NEUTROPHILS # 6.9 10^3/uL (1.5-8.5); NEUTROPHILS % 76.8 % (36.0-66.0); PLATELET COUNT, AUTOMATED 148 10^3/uL (150-450); RED BLOOD COUNT 4.46 10^6/uL (4.30-6.10); WHITE BLOOD COUNT 9.1 10^3/uL (4.0-10.0)
[2021-12-26 16:15] LABS: INR 1.09; PROTHROMBIN TIME 14.5 SECONDS (12.7-14.5)
[2021-12-26 16:32] LABS: ALBUMIN 3.7 GM/DL (3.2-5.2); ALT/SGPT 14 U/L (12-78); BILIRUBIN,TOTAL 0.8 MG/DL (0.2-1.0); BLOOD UREA NITROGEN 23 MG/DL (7-18); CALCIUM LEVEL 8.9 MG/DL (8.8-10.2); CARBON DIOXIDE LEVEL 33 MEQ/L (21-32); CHLORIDE LEVEL 108 MEQ/L (98-107); CREATININE FOR GFR 1.07 MG/DL (0.70-1.30); GLOMERULAR FILTRATION RATE > 60.0 (>42); GLUCOSE, FASTING 181 MG/DL (70-100); POTASSIUM SERUM 4.7 MEQ/L (3.5-5.1); SODIUM LEVEL 143 MEQ/L (136-145); TOTAL PROTEIN 6.7 GM/DL (6.4-8.2)
== END ==
LOC: M SFHCCLAY 10:59
PROVIDERS: ATTEND Family Medicine
DX: Z01.818 Encounter for other preprocedural examination (principal); I10 Essential (primary) hypertension; I48.19 Other persistent atrial fibrillation

== ENCOUNTER 2021-12-30 06:36 | Outpatient (CLI) | payer MEDICARE, MEDICAID ==
[~2021-12-30 06:36] MED LIST changes: -ASPI81TA26 PO
[2021-12-30] MEDS ORDERED: INSULIN LISPRO (NovoLOG) PER UNIT SC PRN ×2 (07:10→11:05)
[2021-12-30] MEDS ORDERED: LR 1,000 ML IV SCH ×2 (07:10→11:05)
[2021-12-30] MEDS ORDERED: ASPI81TA26 PO (07:27)
[2021-12-30] MEDS ORDERED: FISH1000 PO (07:27)
[2021-12-30] MEDS ORDERED: ISOVUE-300 61% 50ML VIAL As Ordered ONE ×2 (07:55→09:56)
[2021-12-30] MEDS ORDERED: LIDOCAINE 1% MDV 20ML VIAL As Ordered ONE (07:55)
[2021-12-30] MEDS ORDERED: MIDAZOLAM INJ 2MG/2ML VIAL (J2250 PER 1MG) As Ordered ONE (08:15)
[2021-12-30] MEDS ORDERED: fentaNYL 100 MCG/2 ML INJECTION As Ordered ONE (08:15)
[2021-12-30] MEDS ORDERED: propofoL 200 MG/20 ML VIAL As Ordered ONE (08:16)
[2021-12-30] MEDS ORDERED: LIDOCAINE 2% 100MG/5ML SDV (FOR ANES.) As Ordered ONE (08:16)
[2021-12-30] MEDS ORDERED: fentaNYL 100 MCG/2 ML INJECTION IV PRN (11:05)
[2021-12-30] MEDS ORDERED: ONDANSETRON 4MG/2ML VIAL IV PRN (11:05)
[2021-12-30] MEDS: MORPHINE 2 MG/ML 1ML VIAL IV PRN ×3 (11:17→11:37)
[2021-12-30] MEDS: oxyCODONE 5MG TAB PO PRN ×2 (11:50→12:24)
[2021-12-30 16:00] VITALS: BP 160/82
== END 2021-12-30 16:06 | disposition home or self-care (01) ==
LOC: M IRPRO 06:36
PROVIDERS: ATTEND Radiology Diagnostic Radiology
DX: I70.222 Atherosclerosis of native arteries of extremities with rest pain, left leg (principal); L97.929 Non-pressure chronic ulcer of unspecified part of left lower leg with unspecified severity; I70.249 Atherosclerosis of native arteries of left leg with ulceration of unspecified site; I70.92 Chronic total occlusion of artery of the extremities; I10 Essential (primary) hypertension; E78.5 Hyperlipidemia, unspecified; E11.9 Type 2 diabetes mellitus without complications; I25.10 Atherosclerotic heart disease of native coronary artery without angina pectoris; Z95.5 Presence of coronary angioplasty implant and graft
CPT/HCPCS: 36247; 75710; 75774; 87426; 99152; 99153; C1729; C1769; C1887; C1894; J1644; J2250; J2270; J3010; Q9967

== ENCOUNTER → 2022-01-14 | Outpatient (POV) | payer MEDICARE, MEDICAID ==
[~2022-01-14] VITALS: Ht 180.3 cm; Wt 127.2 kg
[~2022-01-14] MED LIST changes: +ASPI81TA26 PO
[2022-01-14 08:45] VITALS: BP 169/86
== END ==
LOC: M IRPOV 08:34
PROVIDERS: ATTEND Radiology Diagnostic Radiology
DX: Z48.812 Encounter for surgical aftercare following surgery on the circulatory system (principal); I70.92 Chronic total occlusion of artery of the extremities; E11.51 Type 2 diabetes mellitus with diabetic peripheral angiopathy without gangrene

== ENCOUNTER 2022-01-27 07:33 | Observation (INO) | payer MEDICARE, MEDICAID ==
[~2022-01-27] VITALS: Ht 180.3 cm; Wt 125.6 kg
[2022-01-27] MEDS: TIOTROPIUM INHALER/CAPSULE (SPIRIVA) INH SCH (08:00)
[2022-01-27 09:49] LABS: BASO % 0.4 % (0.0-1.0); EOS # 0.1 10^3/uL (0.0-0.5); EOS % 1.2 % (0.0-3.0); HEMATOCRIT 41.2 % (42.0-52.0); HEMOGLOBIN 13.3 g/dl (13.5-17.5); LYMPH # 1.2 10^3/uL (1.5-5.0); LYMPH % 13.4 % (24.0-44.0); MEAN CORPUSCULAR HEMOGLOBIN 30.5 pg (27.0-33.0); MEAN CORPUSCULAR HGB CONC 32.3 g/dl (32.0-36.5); MEAN CORPUSCULAR VOLUME 94.5 fl (80.0-96.0); MONO # 0.7 10^3/uL (0.0-0.8); MONO % 7.6 % (2.0-8.0); NEUTROPHILS # 6.9 10^3/uL (1.5-8.5); PLATELET COUNT, AUTOMATED 128 10^3/uL (150-450); RED BLOOD COUNT 4.36 10^6/uL (4.30-6.10)
[2022-01-27 10:31] LABS: ALBUMIN 3.6 GM/DL (3.2-5.2); ALT/SGPT 16 U/L (12-78); BILIRUBIN,DIRECT 0.2 MG/DL (0.0-0.2); BILIRUBIN,TOTAL 0.9 MG/DL (0.2-1.0); BLOOD UREA NITROGEN 28 MG/DL (7-18); CALCIUM LEVEL 9.3 MG/DL (8.8-10.2); CARBON DIOXIDE LEVEL 27 MEQ/L (21-32); CHLORIDE LEVEL 106 MEQ/L (98-107); GLOMERULAR FILTRATION RATE > 60.0 (>42); GLUCOSE, FASTING 128 MG/DL (70-100); NT-PRO BNP 954 PG/ML (<125); POTASSIUM SERUM 4.2 MEQ/L (3.5-5.1); SODIUM LEVEL 143 MEQ/L (136-145); TOTAL PROTEIN 6.8 GM/DL (6.4-8.2)
[2022-01-27] MEDS ORDERED: FUROSEMIDE 40MG/4ML VIAL (J1940) IV ONE (10:45)
[2022-01-27] MEDS: INSULIN LISPRO (NovoLOG) PER UNIT SC SCH ×2 (12:00→16:53)
[2022-01-27] MEDS ORDERED: ALBU8.5H INH (12:08)
[2022-01-27] MEDS ORDERED: ELIQ5TAB PO (12:08)
[2022-01-27] MEDS ORDERED: HOME MED LIST COMPLETE! XX SCH (12:10)
[2022-01-27 12:55] VITALS: BP 164/100
[2022-01-27] MEDS ORDERED: GLUCAGON INJ 1MG VIAL SC PRN (12:55)
[2022-01-27] MEDS ORDERED: ALBUTEROL SULFATE 2.5 MG/0.5 ML INH NEB SOLN NEB PRN (12:55)
[2022-01-27] MEDS ORDERED: DEXTROSE 50% 50 ML SYRINGE IV PRN (12:55)
[2022-01-27] MEDS ORDERED: GLUCOSE 4GM CHEW TABLET PO PRN (12:55)
[2022-01-27 13:54] LABS: INR 1.15; PROTHROMBIN TIME 15.1 SECONDS (12.7-14.5)
[2022-01-27 13:55] LABS: PARTIAL THROMBOPLASTIN TIME 31.4 SECONDS (25.9-37.0)
[2022-01-27 14:00] VITALS: BP 139/74
[2022-01-27] MEDS: IPRATROPIUM 0.5MG/ALBUTEROL 2.5MG INH SOL UD 3ML (DUONEB) NEB SCH ×2 (16:01→19:18)
[2022-01-27] MEDS: RANOLAZINE 500 MG ER TAB PO SCH (20:35)
[2022-01-27] MEDS: PREGABALIN 100 MG CAP (LYRICA) PO SCH (20:35)
[2022-01-27] MEDS: APIXABAN 5 MG TAB (ELIQUIS) PO SCH (20:35)
[2022-01-27] MEDS ORDERED: INSULIN LISPRO (NovoLOG) PER UNIT SC SCH (21:00)
[2022-01-27] MEDS ORDERED: SIMVASTATIN 20 MG TAB PO SCH (21:00)
[2022-01-27 21:39] VITALS: BP 169/82
[2022-01-27] MEDS: FUROSEMIDE 20MG/2ML VIAL (J1940) IV SCH (22:05)
[2022-01-28 06:00] VITALS: BP 150/82
[2022-01-28 06:13] LABS: HEMATOCRIT 41.6 % (42.0-52.0); HEMOGLOBIN 13.2 g/dl (13.5-17.5); MEAN CORPUSCULAR HEMOGLOBIN 29.5 pg (27.0-33.0); MEAN CORPUSCULAR HGB CONC 31.7 g/dl (32.0-36.5); MEAN CORPUSCULAR VOLUME 93.1 fl (80.0-96.0); PLATELET COUNT, AUTOMATED 130 10^3/uL (150-450); RED BLOOD COUNT 4.47 10^6/uL (4.30-6.10); WHITE BLOOD COUNT 9.2 10^3/uL (4.0-10.0)
[2022-01-28 06:40] LABS: BLOOD UREA NITROGEN 25 MG/DL (7-18); CALCIUM LEVEL 9.1 MG/DL (8.8-10.2); CARBON DIOXIDE LEVEL 30 MEQ/L (21-32); CHLORIDE LEVEL 106 MEQ/L (98-107); CREATININE FOR GFR 1.02 MG/DL (0.70-1.30); GLOMERULAR FILTRATION RATE > 60.0 (>42); GLUCOSE, FASTING 137 MG/DL (70-100); POTASSIUM SERUM 3.7 MEQ/L (3.5-5.1); SODIUM LEVEL 144 MEQ/L (136-145)
[2022-01-28] MEDS: IPRATROPIUM 0.5MG/ALBUTEROL 2.5MG INH SOL UD 3ML (DUONEB) NEB SCH ×2 (08:00→11:51)
[2022-01-28] MEDS: TIOTROPIUM INHALER/CAPSULE (SPIRIVA) INH SCH (08:00)
[2022-01-28] MEDS: RANOLAZINE 500 MG ER TAB PO SCH (08:14)
[2022-01-28] MEDS: INSULIN LISPRO (NovoLOG) PER UNIT SC SCH ×2 (08:14→11:59)
[2022-01-28] MEDS: PREGABALIN 100 MG CAP (LYRICA) PO SCH (08:14)
[2022-01-28] MEDS: APIXABAN 5 MG TAB (ELIQUIS) PO SCH (08:15)
[2022-01-28 08:16] VITALS: BP 152/96
[2022-01-28] MEDS ORDERED: ASPIRIN 81MG ENTERIC TABLET PO SCH (09:00)
[2022-01-28] MEDS ORDERED: FURO20TA2 PO (09:51)
[2022-01-28] MEDS: FUROSEMIDE 20MG/2ML VIAL (J1940) IV SCH (11:00)
== END 2022-01-28 12:50 | disposition home or self-care (01) ==
LOC: M ED 07:33 → M ED INP 07:34 → ENRESERV 11:55 → M MSPAV 12:46
PROVIDERS: ADMIT Internal Medicine; ATTEND Family Medicine
DX: R06.02 Shortness of breath (principal); I50.9 Heart failure, unspecified; J44.9 Chronic obstructive pulmonary disease, unspecified; G47.33 Obstructive sleep apnea (adult) (pediatric); I16.0 Hypertensive urgency; Z91.81 History of falling; I25.10 Atherosclerotic heart disease of native coronary artery without angina pectoris; Z98.61 Coronary angioplasty status; E11.9 Type 2 diabetes mellitus without complications; G90.09 Other idiopathic peripheral autonomic neuropathy; I48.91 Unspecified atrial fibrillation; Z79.4 Long term (current) use of insulin; E78.5 Hyperlipidemia, unspecified; I73.9 Peripheral vascular disease, unspecified; Z99.81 Dependence on supplemental oxygen; Z79.82 Long term (current) use of aspirin; Z79.899 Other long term (current) drug therapy; Z79.84 Long term (current) use of oral hypoglycemic drugs
CPT/HCPCS: 36415; 36600; 71045; 71250; 80048; 80076; 82803; 83605; 83880; 84145; 84484; 85025; 85027; 85610; 85730; 87040; 87486; 87581; 87633; 87798; 93005; 93041; 94640; 94760; 96374; 97116; 97161; 99285; G0378; J1815; J1940

== ENCOUNTER → 2022-02-03 | Outpatient (REF) | payer MEDICARE, MEDICAID ==
[~2022-02-03] MED LIST changes: +ALBU8.5H INH; +FURO20TA2 PO
[2022-02-03 17:33] LABS: ALBUMIN 3.7 GM/DL (3.2-5.2); ALT/SGPT 14 U/L (12-78); BLOOD UREA NITROGEN 26 MG/DL (7-18); CARBON DIOXIDE LEVEL 33 MEQ/L (21-32); CHLORIDE LEVEL 105 MEQ/L (98-107); CREATININE FOR GFR 0.95 MG/DL (0.70-1.30); GLOMERULAR FILTRATION RATE > 60.0 (>42); GLUCOSE, FASTING 116 MG/DL (70-100); POTASSIUM SERUM 4.3 MEQ/L (3.5-5.1); SODIUM LEVEL 141 MEQ/L (136-145); TOTAL PROTEIN 6.9 GM/DL (6.4-8.2)
[2022-02-03 18:44] LABS: HEMOGLOBIN A1c 6.2 %
== END ==
LOC: M SFHCCLAY 14:29
PROVIDERS: ATTEND Family Medicine
DX: I50.32 Chronic diastolic (congestive) heart failure (principal); E11.9 Type 2 diabetes mellitus without complications

== ENCOUNTER 2022-02-25 08:40 | Inpatient (IN) | payer MEDICARE, MEDICAID ==
[~2022-02-25] VITALS: Ht 180.3 cm; Wt 123.7 kg
[2022-02-25] MEDS ORDERED: ANOR1AER INH (08:57)
[2022-02-25] MEDS ORDERED: FUROSEMIDE 40MG/4ML VIAL (J1940) IV ONE ×2 (12:05→16:00)
[2022-02-25 12:32] LABS: VENOUS HCO3 30.5 MEQ/L (23.0-27.0); VENOUS O2 SATURATION 66.4 % (60.0-80.0); VENOUS PARTIAL PRESSURE CO2 59.7 mmHg (38.0-50.0); VENOUS PARTIAL PRESSURE O2 37.9 mmHg (30.0-50.0); VENOUS PH 7.326 UNITS (7.330-7.430); VENOUS STANDARD HCO3 26.4 MEQ/L; VENOUS TOTAL CO2 32.3 MEQ/L (24.0-28.0)
[2022-02-25 13:18] LABS: ALBUMIN 3.2 GM/DL (3.2-5.2); ALT/SGPT 23 U/L (12-78); BILIRUBIN,DIRECT < 0.1 MG/DL (0.0-0.2); BILIRUBIN,TOTAL 0.6 MG/DL (0.2-1.0); BLOOD UREA NITROGEN 23 MG/DL (7-18); CALCIUM LEVEL 8.8 MG/DL (8.8-10.2); CARBON DIOXIDE LEVEL 32 MEQ/L (21-32); CHLORIDE LEVEL 106 MEQ/L (98-107); CREATININE FOR GFR 1.06 MG/DL (0.70-1.30); GLOMERULAR FILTRATION RATE > 60.0 (>42); GLUCOSE, FASTING 161 MG/DL (70-100); NT-PRO BNP 1497 PG/ML (<125); POTASSIUM SERUM 5.2 MEQ/L (3.5-5.1); SODIUM LEVEL 140 MEQ/L (136-145); TOTAL PROTEIN 7.3 GM/DL (6.4-8.2)
[2022-02-25 13:42] LABS: BASO % 0.3 % (0.0-1.0); EOS # 0.1 10^3/uL (0.0-0.5); EOS % 1.1 % (0.0-3.0); HEMATOCRIT 41.6 % (42.0-52.0); HEMOGLOBIN 12.8 g/dl (13.5-17.5); LYMPH # 1.6 10^3/uL (1.5-5.0); LYMPH % 15.2 % (24.0-44.0); MEAN CORPUSCULAR HEMOGLOBIN 28.3 pg (27.0-33.0); MEAN CORPUSCULAR HGB CONC 30.8 g/dl (32.0-36.5); MEAN CORPUSCULAR VOLUME 91.8 fl (80.0-96.0); MONO # 0.6 10^3/uL (0.0-0.8); MONO % 5.7 % (2.0-8.0); NEUTROPHILS # 8.2 10^3/uL (1.5-8.5); NEUTROPHILS % 77.2 % (36.0-66.0); PLATELET COUNT, AUTOMATED 149 10^3/uL (150-450); RED BLOOD COUNT 4.53 10^6/uL (4.30-6.10); WHITE BLOOD COUNT 10.6 10^3/uL (4.0-10.0)
[2022-02-25] MEDS ORDERED: FURO20TA2 PO (15:09)
[2022-02-25] MEDS ORDERED: COLA100C5 PO (15:09)
[2022-02-25] MEDS ORDERED: HOME MED LIST COMPLETE! XX SCH (15:10)
[2022-02-25] MEDS ORDERED: ALBUTEROL 90 MCG/ACT 8GM HFA INHALER INH PRN (15:50)
[2022-02-25] MEDS ORDERED: GLUCOSE 4GM CHEW TABLET PO PRN (15:55)
[2022-02-25] MEDS ORDERED: GLUCAGON INJ 1MG VIAL SC PRN (15:55)
[2022-02-25] MEDS ORDERED: DEXTROSE 50% 50 ML SYRINGE IV PRN (15:55)
[2022-02-25 17:00] VITALS: BP 194/91
[2022-02-25] MEDS: INSULIN LISPRO (NovoLOG) PER UNIT SC SCH (18:49)
[2022-02-25 20:00] VITALS: BP 148/72
[2022-02-25 20:40] LABS: FREE T4 0.86 NG/DL (0.76-1.46)
[2022-02-25] MEDS ORDERED: APIXABAN 5 MG TAB (ELIQUIS) PO SCH (21:00)
[2022-02-25] MEDS: RANOLAZINE 500 MG ER TAB PO SCH (21:51)
[2022-02-25] MEDS: FUROSEMIDE 40MG/4ML VIAL (J1940) IV SCH (21:51)
[2022-02-25] MEDS: SIMVASTATIN 20 MG TAB PO SCH (21:52)
[2022-02-25] MEDS: PREGABALIN 100 MG CAP (LYRICA) PO SCH (21:52)
[2022-02-26 00:23] VITALS: BP 121/58
[2022-02-26] MEDS ORDERED: IPRATROPIUM 0.5MG/ALBUTEROL 2.5MG INH SOL UD 3ML (DUONEB) NEB ONE (00:50)
[2022-02-26 04:00] VITALS: BP 136/79
[2022-02-26] MEDS: FUROSEMIDE 40MG/4ML VIAL (J1940) IV SCH ×3 (06:25→20:17)
[2022-02-26 06:34] LABS: HEMATOCRIT 38.2 % (42.0-52.0); HEMOGLOBIN 12.3 g/dl (13.5-17.5); MEAN CORPUSCULAR HEMOGLOBIN 29.1 pg (27.0-33.0); MEAN CORPUSCULAR HGB CONC 32.2 g/dl (32.0-36.5); MEAN CORPUSCULAR VOLUME 90.3 fl (80.0-96.0); PLATELET COUNT, AUTOMATED 141 10^3/uL (150-450); RED BLOOD COUNT 4.23 10^6/uL (4.30-6.10); WHITE BLOOD COUNT 10.8 10^3/uL (4.0-10.0)
[2022-02-26 07:00] LABS: BLOOD UREA NITROGEN 22 MG/DL (7-18); CALCIUM LEVEL 8.9 MG/DL (8.8-10.2); CARBON DIOXIDE LEVEL 33 MEQ/L (21-32); CHLORIDE LEVEL 102 MEQ/L (98-107); CREATININE FOR GFR 1.09 MG/DL (0.70-1.30); GLOMERULAR FILTRATION RATE > 60.0 (>42); GLUCOSE, FASTING 138 MG/DL (70-100); POTASSIUM SERUM 3.5 MEQ/L (3.5-5.1); SODIUM LEVEL 139 MEQ/L (136-145)
[2022-02-26] MEDS: INSULIN LISPRO (NovoLOG) PER UNIT SC SCH ×4 (08:23→21:00)
[2022-02-26] MEDS: DOCUSATE SODIUM 100MG CAPSULE PO SCH (08:24)
[2022-02-26] MEDS: PREGABALIN 100 MG CAP (LYRICA) PO SCH ×2 (08:24→20:09)
[2022-02-26] MEDS: ASPIRIN 81MG ENTERIC TABLET PO SCH (08:24)
[2022-02-26] MEDS: RANOLAZINE 500 MG ER TAB PO SCH ×2 (08:25→20:09)
[2022-02-26] MEDS ORDERED: FUROSEMIDE 40MG/4ML VIAL (J1940) IV SCH (09:00)
[2022-02-26 09:03] LABS: ABG BASE EXCESS 5.4 (-2.0-2.0); ABG HCO3 30.5 MEQ/L (22.0-26.0); ABG PARTIAL PRESSURE CO2 46.2 mmHg (35.0-45.0); ABG PARTIAL PRESSURE O2 70.4 mmHg (75.0-100.0); ABG STANDARD HCO3 29.3 MEQ/L (22.0-26.0); ABG TOTAL CO2 31.9 MEQ/L (23.0-31.0); ABG pH (ARTERIAL) 7.437 UNITS (7.350-7.450)
[2022-02-26 12:00] VITALS: BP 155/69
[2022-02-26] MEDS ORDERED: POTASSIUM CHLORIDE 10MEQ SR TABLET PO ONE (15:00)
[2022-02-26] MEDS: SIMVASTATIN 20 MG TAB PO SCH (20:09)
[2022-02-26 20:12] VITALS: BP 140/67
[2022-02-27 04:00] VITALS: BP 153/83
[2022-02-27] MEDS: FUROSEMIDE 40MG/4ML VIAL (J1940) IV SCH (06:06)
[2022-02-27 07:57] LABS: HEMATOCRIT 41.1 % (42.0-52.0); HEMOGLOBIN 12.8 g/dl (13.5-17.5); MEAN CORPUSCULAR HEMOGLOBIN 28.3 pg (27.0-33.0); MEAN CORPUSCULAR HGB CONC 31.1 g/dl (32.0-36.5); MEAN CORPUSCULAR VOLUME 90.7 fl (80.0-96.0); PLATELET COUNT, AUTOMATED 145 10^3/uL (150-450); RED BLOOD COUNT 4.53 10^6/uL (4.30-6.10); WHITE BLOOD COUNT 11.3 10^3/uL (4.0-10.0)
[2022-02-27 08:22] LABS: BLOOD UREA NITROGEN 25 MG/DL (7-18); CALCIUM LEVEL 8.7 MG/DL (8.8-10.2); CARBON DIOXIDE LEVEL 32 MEQ/L (21-32); CHLORIDE LEVEL 103 MEQ/L (98-107); CREATININE FOR GFR 1.05 MG/DL (0.70-1.30); GLOMERULAR FILTRATION RATE > 60.0 (>42); GLUCOSE, FASTING 147 MG/DL (70-100); LDH LACTATE DEHYDROGENASE 195 U/L (87-241); PHOSPHORUS LEVEL 3.3 MG/DL (2.5-4.9); POTASSIUM SERUM 3.8 MEQ/L (3.5-5.1); SODIUM LEVEL 141 MEQ/L (136-145); TOTAL PROTEIN 6.7 GM/DL (6.4-8.2)
[2022-02-27] MEDS: DOCUSATE SODIUM 100MG CAPSULE PO SCH (08:33)
[2022-02-27] MEDS: RANOLAZINE 500 MG ER TAB PO SCH ×2 (08:33→20:26)
[2022-02-27] MEDS: PREGABALIN 100 MG CAP (LYRICA) PO SCH ×2 (08:33→20:26)
[2022-02-27] MEDS: ASPIRIN 81MG ENTERIC TABLET PO SCH (08:33)
[2022-02-27] MEDS: INSULIN LISPRO (NovoLOG) PER UNIT SC SCH ×4 (08:34→20:48)
[2022-02-27] MEDS ORDERED: ACETAMINOPHEN TAB 650MG DOSE (2X325MG) PO PRN (09:25)
[2022-02-27] MEDS ORDERED: LIDOCAINE 1% MDV 20ML VIAL As Ordered ONE (11:29)
[2022-02-27 12:50] VITALS: BP 122/57
[2022-02-27 13:05] LABS: PH BODY FLUID 7.646 UNITS (NOT ESTABLISHED); SOURCE, BODY FLUID pH PLEURAL
[2022-02-27 13:11] VITALS: BP 108/58
[2022-02-27 13:14] LABS: APPEARANCE, BODY FLUID CLOUDY (CLEAR); PLEURAL FL COLOR YELLOW (COLORLESS); SOURCE, BODY FLUID PLEURAL
[2022-02-27 13:51] LABS: AMYLASE, BODY FLUID 15 U/L (NOT ESTABLISHED); CHOLESTEROL, BODY FLUID < 50 MG/DL (NOT ESTABLISHED); LDH, BODY FLUID 127 U/L (NOT ESTABLISHED); SOURCE, BODY FLUID ALBUMIN PLEURAL; SOURCE, BODY FLUID AMYLASE PLEURAL; SOURCE, BODY FLUID CHOL PLEURAL; SOURCE, BODY FLUID GLUCOSE PLEURAL; SOURCE, BODY FLUID LDH PLEURAL; SOURCE, BODY FLUID TOT PROTEIN PLEURAL; SOURCE, BODY FLUID TRIG PLEURAL; TOTAL PROTEIN, BODY FLUID 3.5 G/DL (NOT ESTABLISHED); TRIGLYCERIDE, BODY FLUID 29 MG/DL (NOT ESTABLISHED)
[2022-02-27 15:03] LABS: INR 1.07; PROTHROMBIN TIME 14.3 SECONDS (12.7-14.5)
[2022-02-27 15:04] LABS: PARTIAL THROMBOPLASTIN TIME 31.8 SECONDS (25.9-37.0)
[2022-02-27] MEDS ORDERED: AUGMENTIN 875 MG TAB PO ONE (18:00)
[2022-02-27] MEDS ORDERED: FUROSEMIDE 40MG/4ML VIAL (J1940) IV SCH (18:00)
[2022-02-27 20:15] VITALS: BP 128/65
[2022-02-27] MEDS: SIMVASTATIN 20 MG TAB PO SCH (20:25)
[2022-02-27] MEDS: APIXABAN 5 MG TAB (ELIQUIS) PO SCH (20:25)
[2022-02-28 05:21] VITALS: BP 117/67
[2022-02-28 07:02] LABS: HEMATOCRIT 40.7 % (42.0-52.0); HEMOGLOBIN 12.7 g/dl (13.5-17.5); MEAN CORPUSCULAR HEMOGLOBIN 28.3 pg (27.0-33.0); MEAN CORPUSCULAR HGB CONC 31.2 g/dl (32.0-36.5); MEAN CORPUSCULAR VOLUME 90.8 fl (80.0-96.0); PLATELET COUNT, AUTOMATED 134 10^3/uL (150-450); RED BLOOD COUNT 4.48 10^6/uL (4.30-6.10); WHITE BLOOD COUNT 9.6 10^3/uL (4.0-10.0)
[2022-02-28 07:52] LABS: BLOOD UREA NITROGEN 27 MG/DL (7-18); CALCIUM LEVEL 8.6 MG/DL (8.8-10.2); CARBON DIOXIDE LEVEL 35 MEQ/L (21-32); CHLORIDE LEVEL 102 MEQ/L (98-107); CREATININE FOR GFR 1.05 MG/DL (0.70-1.30); GLOMERULAR FILTRATION RATE > 60.0 (>42); GLUCOSE, FASTING 158 MG/DL (70-100); MAGNESIUM LEVEL 2.2 MG/DL (1.8-2.4); PHOSPHORUS LEVEL 2.7 MG/DL (2.5-4.9); POTASSIUM SERUM 3.9 MEQ/L (3.5-5.1); SODIUM LEVEL 140 MEQ/L (136-145)
[2022-02-28] MEDS: RANOLAZINE 500 MG ER TAB PO SCH (08:33)
[2022-02-28] MEDS: APIXABAN 5 MG TAB (ELIQUIS) PO SCH (08:33)
[2022-02-28] MEDS: ASPIRIN 81MG ENTERIC TABLET PO SCH (08:33)
[2022-02-28] MEDS: INSULIN LISPRO (NovoLOG) PER UNIT SC SCH ×2 (08:33→11:56)
[2022-02-28] MEDS: PREGABALIN 100 MG CAP (LYRICA) PO SCH (08:33)
[2022-02-28] MEDS: DOCUSATE SODIUM 100MG CAPSULE PO SCH (08:33)
[2022-02-28 08:36] VITALS: BP 146/69
[2022-02-28] MEDS ORDERED: AUGMENTIN 875 MG TAB PO SCH (09:00)
[2022-02-28] MEDS ORDERED: FUROSEMIDE 40 MG TAB PO SCH (09:00)
[2022-02-28] MEDS ORDERED: FURO40TA2 PO (11:12)
[2022-02-28] MEDS ORDERED: AMOX875T2 PO (11:14)
== END 2022-02-28 13:07 | disposition home or self-care (01) | DRG 291 ==
LOC: M ED 08:40 → M ED INP 14:53 → ENRESERV 15:40 → M 4MAIN 16:53
PROVIDERS: ADMIT Internal Medicine; ATTEND Internal Medicine
PROC: 0W993ZZ Drainage of Right Pleural Cavity, Percutaneous Approach (ICD-10-PCS; principal; 2022-02-27 09:00)
DX: I11.0 Hypertensive heart disease with heart failure (principal); I50.33 Acute on chronic diastolic (congestive) heart failure; J18.9 Pneumonia, unspecified organism; I48.19 Other persistent atrial fibrillation; J96.10 Chronic respiratory failure, unspecified whether with hypoxia or hypercapnia; J91.8 Pleural effusion in other conditions classified elsewhere; J44.0 Chronic obstructive pulmonary disease with (acute) lower respiratory infection; E11.42 Type 2 diabetes mellitus with diabetic polyneuropathy; I25.10 Atherosclerotic heart disease of native coronary artery without angina pectoris; E78.5 Hyperlipidemia, unspecified; E66.9 Obesity, unspecified; G47.33 Obstructive sleep apnea (adult) (pediatric); E11.51 Type 2 diabetes mellitus with diabetic peripheral angiopathy without gangrene; I27.20 Pulmonary hypertension, unspecified; Z95.5 Presence of coronary angioplasty implant and graft; Z79.899 Other long term (current) drug therapy; Z79.01 Long term (current) use of anticoagulants; Z79.82 Long term (current) use of aspirin; Z99.81 Dependence on supplemental oxygen; Z20.822 Contact with and (suspected) exposure to COVID-19; Z87.891 Personal history of nicotine dependence; Z89.422 Acquired absence of other left toe(s); Z91.19 Patient's noncompliance with other medical treatment and regimen

== ENCOUNTER → 2022-03-26 | Outpatient (CLI) | payer MEDICARE, MEDICAID ==
[~2022-03-26] MED LIST changes: +AMOX875T2 PO; +ANOR1AER INH; +ASPI81CH33 PO; +COLA100C5 PO; +FURO40TA2 PO; +TORS20TA2 PO
== END ==
LOC: M RAD 11:51
PROVIDERS: ATTEND Internal Medicine Pulmonary Disease
DX: I50.22 Chronic systolic (congestive) heart failure (principal)

== ENCOUNTER 2022-03-27 08:39 | Observation (INO) | payer MEDICARE, MEDICAID ==
[~2022-03-27] VITALS: Ht 180.3 cm; Wt 121.9 kg
[~2022-03-27 08:39] MED LIST changes: -ASPI81CH33 PO; -TORS20TA2 PO
[2022-03-27 09:33] LABS: BASO % 0.2 % (0.0-1.0); EOS # 0.2 10^3/uL (0.0-0.5); EOS % 2.2 % (0.0-3.0); HEMATOCRIT 40.6 % (42.0-52.0); HEMOGLOBIN 12.6 g/dl (13.5-17.5); LYMPH # 1.1 10^3/uL (1.5-5.0); LYMPH % 13.3 % (24.0-44.0); MEAN CORPUSCULAR HEMOGLOBIN 27.6 pg (27.0-33.0); MEAN CORPUSCULAR VOLUME 88.8 fl (80.0-96.0); MONO # 0.5 10^3/uL (0.0-0.8); MONO % 5.8 % (2.0-8.0); NEUTROPHILS # 6.3 10^3/uL (1.5-8.5); NEUTROPHILS % 78.1 % (36.0-66.0); PLATELET COUNT, AUTOMATED 112 10^3/uL (150-450); RED BLOOD COUNT 4.57 10^6/uL (4.30-6.10); WHITE BLOOD COUNT 8.1 10^3/uL (4.0-10.0)
[2022-03-27 10:20] LABS: ABG BASE EXCESS 3.3 (-2.0-2.0); ABG HCO3 28.5 MEQ/L (22.0-26.0); ABG O2 SATURATION 94.4 % (95.0-99.0); ABG PARTIAL PRESSURE CO2 45.5 mmHg (35.0-45.0); ABG PARTIAL PRESSURE O2 73.8 mmHg (75.0-100.0); ABG STANDARD HCO3 27.3 MEQ/L (22.0-26.0); ABG TOTAL CO2 29.9 MEQ/L (23.0-31.0); ABG pH (ARTERIAL) 7.414 UNITS (7.350-7.450)
[2022-03-27 10:23] LABS: ALBUMIN 3.4 GM/DL (3.2-5.2); ALT/SGPT 15 U/L (12-78); BILIRUBIN,DIRECT 0.2 MG/DL (0.0-0.2); BILIRUBIN,TOTAL 0.5 MG/DL (0.2-1.0); BLOOD UREA NITROGEN 25 MG/DL (7-18); CARBON DIOXIDE LEVEL 31 MEQ/L (21-32); CHLORIDE LEVEL 105 MEQ/L (98-107); CREATININE FOR GFR 1.11 MG/DL (0.70-1.30); GLOMERULAR FILTRATION RATE > 60.0 (>42); GLUCOSE, FASTING 196 MG/DL (70-100); NT-PRO BNP 1135 PG/ML (<125); POTASSIUM SERUM 4.2 MEQ/L (3.5-5.1); SODIUM LEVEL 140 MEQ/L (136-145); TOTAL PROTEIN 7.1 GM/DL (6.4-8.2)
[2022-03-27] MEDS ORDERED: IPRATROPIUM 0.5MG/ALBUTEROL 2.5MG INH SOL UD 3ML (DUONEB) NEB ONE (10:40)
[2022-03-27] MEDS ORDERED: methylPREDNISolone 125MG 2ML VIAL IV ONE (10:40)
[2022-03-27] MEDS ORDERED: FURO40TA2 PO (11:21)
[2022-03-27] MEDS ORDERED: ASPI81CH33 PO (11:21)
[2022-03-27] MEDS ORDERED: HOME MED LIST COMPLETE! XX SCH (11:25)
[2022-03-27] MEDS ORDERED: NITROGLYCERIN 0.4 MG SUBL TABLET SL PRN (11:30)
[2022-03-27] MEDS ORDERED: dexameTHASONE 4 MG/ML 1ML VIAL (J1100 PER 1MG) IV SCH ×2 (12:00→12:41)
[2022-03-27] MEDS ORDERED: dexameTHASONE 20MG/5ML VIAL (J1100 PER 1MG) IV SCH (12:00)
[2022-03-27] MEDS: ALBUTEROL SULFATE 2.5 MG/0.5 ML INH NEB SOLN NEB SCH ×3 (12:00→20:09)
[2022-03-27] MEDS: FUROSEMIDE 40MG/4ML VIAL (J1940) IV SCH ×4 (12:00→23:54)
[2022-03-27 12:30] VITALS: BP 160/75
[2022-03-27 14:00] VITALS: BP 141/72
[2022-03-27] MEDS ORDERED: IPRATROPIUM 0.5MG/ALBUTEROL 2.5MG INH SOL UD 3ML (DUONEB) NEB SCH (14:00)
[2022-03-27] MEDS ORDERED: GLUCOSE 4GM CHEW TABLET PO PRN (15:35)
[2022-03-27] MEDS ORDERED: GLUCAGON INJ 1MG VIAL SC PRN (15:35)
[2022-03-27] MEDS ORDERED: DEXTROSE 50% 50 ML SYRINGE IV PRN (15:35)
[2022-03-27] MEDS: INSULIN LISPRO (NovoLOG) PER UNIT SC SCH (17:39)
[2022-03-27 18:00] VITALS: BP 145/75
[2022-03-27] MEDS: SYMBICORT 160/4.5MCG INHALER 6GM INH SCH (20:09)
[2022-03-27] MEDS: APIXABAN 5 MG TAB (ELIQUIS) PO SCH (20:27)
[2022-03-27] MEDS: PREGABALIN 100 MG CAP (LYRICA) PO SCH (20:28)
[2022-03-27] MEDS ORDERED: SIMVASTATIN 20 MG TAB PO SCH (21:00)
[2022-03-27] MEDS ORDERED: INSULIN LISPRO (NovoLOG) PER UNIT SC SCH (21:00)
[2022-03-27 22:00] VITALS: BP 145/77
[2022-03-27] MEDS: dexameTHASONE 4 MG/ML 1ML VIAL (J1100 PER 1MG) IV SCH ×2 (23:49→23:53)
[2022-03-28 02:00] VITALS: BP 142/72
[2022-03-28] MEDS: ALBUTEROL SULFATE 2.5 MG/0.5 ML INH NEB SOLN NEB SCH ×4 (03:10→11:28)
[2022-03-28] MEDS: FUROSEMIDE 40MG/4ML VIAL (J1940) IV SCH ×3 (03:58→12:04)
[2022-03-28 05:55] VITALS: BP 128/63
[2022-03-28 06:11] LABS: BASO % 0.1 % (0.0-1.0); HEMOGLOBIN 12.9 g/dl (13.5-17.5); LYMPH # 0.8 10^3/uL (1.5-5.0); LYMPH % 6.1 % (24.0-44.0); MEAN CORPUSCULAR HEMOGLOBIN 27.2 pg (27.0-33.0); MEAN CORPUSCULAR HGB CONC 31.5 g/dl (32.0-36.5); MEAN CORPUSCULAR VOLUME 86.3 fl (80.0-96.0); MONO # 0.3 10^3/uL (0.0-0.8); MONO % 2.3 % (2.0-8.0); NEUTROPHILS # 11.4 10^3/uL (1.5-8.5); PLATELET COUNT, AUTOMATED 131 10^3/uL (150-450); RED BLOOD COUNT 4.75 10^6/uL (4.30-6.10); WHITE BLOOD COUNT 12.5 10^3/uL (4.0-10.0)
[2022-03-28 06:43] LABS: CALCIUM LEVEL 9.3 MG/DL (8.8-10.2); CREATININE FOR GFR 1.31 MG/DL (0.70-1.30); GLOMERULAR FILTRATION RATE 57.1 (>42); MAGNESIUM LEVEL 2.1 MG/DL (1.8-2.4); POTASSIUM SERUM 3.6 MEQ/L (3.5-5.1)
[2022-03-28] MEDS: INSULIN LISPRO (NovoLOG) PER UNIT SC SCH ×2 (07:42→12:04)
[2022-03-28] MEDS: SYMBICORT 160/4.5MCG INHALER 6GM INH SCH (07:56)
[2022-03-28] MEDS ORDERED: TIOTROPIUM INHALER/CAPSULE (SPIRIVA) INH SCH (08:00)
[2022-03-28] MEDS: APIXABAN 5 MG TAB (ELIQUIS) PO SCH (08:10)
[2022-03-28] MEDS: PREGABALIN 100 MG CAP (LYRICA) PO SCH (08:10)
[2022-03-28 08:13] VITALS: BP 130/65
[2022-03-28] MEDS ORDERED: DOCUSATE SODIUM 100MG CAPSULE PO SCH (09:00)
[2022-03-28] MEDS ORDERED: ASPIRIN 81 MG CHEW TABLET PO SCH (09:00)
[2022-03-28 10:00] VITALS: BP 150/65
[2022-03-28] MEDS ORDERED: TORS20TA2 PO (12:13)
== END 2022-03-28 14:00 | disposition home or self-care (01) ==
LOC: M ED 08:39 → M ED INP 08:40 → ENRESERV 11:43 → EDBEDREQ 12:33 → EDBEDREQSVC 12:36 → M MSPAV 12:37
PROVIDERS: ADMIT Internal Medicine Nephrology; ATTEND Internal Medicine Nephrology
DX: I50.31 Acute diastolic (congestive) heart failure (principal); I48.19 Other persistent atrial fibrillation; I11.0 Hypertensive heart disease with heart failure; I25.10 Atherosclerotic heart disease of native coronary artery without angina pectoris; E78.5 Hyperlipidemia, unspecified; E11.42 Type 2 diabetes mellitus with diabetic polyneuropathy; Z98.61 Coronary angioplasty status; G47.33 Obstructive sleep apnea (adult) (pediatric); E66.9 Obesity, unspecified; J44.9 Chronic obstructive pulmonary disease, unspecified; Z79.01 Long term (current) use of anticoagulants; Z79.82 Long term (current) use of aspirin; Z79.899 Other long term (current) drug therapy
CPT/HCPCS: 36415; 36600; 71046; 80048; 80076; 82803; 83735; 83880; 84443; 84484; 85025; 87486; 87581; 87633; 87798; 93005; 93041; 94640; 94760; 96374; 96375; 96376; 97161; 97165; 99285; G0378; J1100; J1815; J1940; J2930

== ENCOUNTER 2022-04-21 01:59 | Inpatient (IN) | payer MEDICARE, MEDICAID ==
[~2022-04-21] VITALS: Ht 180.3 cm; Wt 120.5 kg
[~2022-04-21 01:59] MED LIST changes: +ASPI81CH33 PO; +TORS20TA2 PO
[2022-04-21 03:23] LABS: BASO % 0.3 % (0.0-1.0); EOS # 0.1 10^3/uL (0.0-0.5); EOS % 1.3 % (0.0-3.0); HEMATOCRIT 43.8 % (42.0-52.0); HEMOGLOBIN 13.5 g/dl (13.5-17.5); LYMPH # 1.7 10^3/uL (1.5-5.0); MEAN CORPUSCULAR HGB CONC 30.8 g/dl (32.0-36.5); MEAN CORPUSCULAR VOLUME 90.7 fl (80.0-96.0); MONO # 0.6 10^3/uL (0.0-0.8); MONO % 6.3 % (2.0-8.0); NEUTROPHILS % 73.8 % (36.0-66.0); PLATELET COUNT, AUTOMATED 116 10^3/uL (150-450); RED BLOOD COUNT 4.83 10^6/uL (4.30-6.10); WHITE BLOOD COUNT 9.4 10^3/uL (4.0-10.0)
[2022-04-21 03:35] LABS: CALCIUM LEVEL 9.4 MG/DL (8.8-10.2); CREATININE FOR GFR 1.34 MG/DL (0.70-1.30); GLOMERULAR FILTRATION RATE 55.6 (>42); POTASSIUM SERUM 3.8 MEQ/L (3.5-5.1)
[2022-04-21 03:36] LABS: CK-MB VALUE MASS 2.4 NG/ML (<3.6); MB/CK RELATIVE INDEX 3.08 (< OR =4)
[2022-04-21] MEDS ORDERED: ONDANSETRON 4MG 2ML VIAL IV ONE (03:50)
[2022-04-21 03:55] LABS: MAGNESIUM LEVEL 2.3 MG/DL (1.8-2.4)
[2022-04-21] MEDS: MORPHINE 2 MG/ML 1ML VIAL IV PRN ×2 (04:07→23:48)
[2022-04-21] MEDS ORDERED: FISH1CAP26 PO (05:26)
[2022-04-21] MEDS ORDERED: TORS20TA2 PO (05:26)
[2022-04-21] MEDS ORDERED: HOME MED LIST COMPLETE! XX SCH (05:30)
[2022-04-21] MEDS ORDERED: med rec comment (05:34)
[2022-04-21] MEDS ORDERED: HYDROMORPHONE HCL 0.5 MG/ 0.5 ML SYRINGE (J1170 PER 1) IV PRN (05:40)
[2022-04-21] MEDS ORDERED: GLUCAGON INJ 1MG VIAL SC PRN (05:40)
[2022-04-21] MEDS ORDERED: DEXTROSE 50% 50 ML SYRINGE IV PRN (05:40)
[2022-04-21] MEDS ORDERED: GLUCOSE 4GM CHEW TABLET PO PRN (05:40)
[2022-04-21] MEDS: INSULIN LISPRO (NovoLOG) PER UNIT SC SCH ×4 (06:02→20:20)
[2022-04-21] MEDS ORDERED: ALBUTEROL 90 MCG/ACT 8GM HFA INHALER INH PRN (06:20)
[2022-04-21 08:00] VITALS: BP 147/76
[2022-04-21] MEDS: PREGABALIN 100 MG CAP (LYRICA) PO SCH ×2 (09:36→20:20)
[2022-04-21] MEDS: DOCUSATE SODIUM 100MG CAPSULE PO SCH (09:36)
[2022-04-21 12:00] VITALS: BP 126/77
[2022-04-21 16:07] VITALS: BP 137/65
[2022-04-21 20:00] VITALS: BP 113/58
[2022-04-21] MEDS: SIMVASTATIN 20 MG TAB PO SCH (20:20)
[2022-04-22] VITALS: BP 123/69
[2022-04-22 04:00] VITALS: BP 141/72
[2022-04-22] MEDS ORDERED: NS 1,000 ML IV SCH (06:00)
[2022-04-22 06:01] LABS: HEMOGLOBIN 12.2 g/dl (13.5-17.5); MEAN CORPUSCULAR HEMOGLOBIN 27.5 pg (27.0-33.0); MEAN CORPUSCULAR HGB CONC 30.5 g/dl (32.0-36.5); MEAN CORPUSCULAR VOLUME 90.3 fl (80.0-96.0); PLATELET COUNT, AUTOMATED 108 10^3/uL (150-450); RED BLOOD COUNT 4.43 10^6/uL (4.30-6.10)
[2022-04-22 06:43] LABS: BLOOD UREA NITROGEN 29 MG/DL (7-18); CALCIUM LEVEL 8.9 MG/DL (8.8-10.2); CARBON DIOXIDE LEVEL 32 MEQ/L (21-32); CHLORIDE LEVEL 103 MEQ/L (98-107); CREATININE FOR GFR 1.22 MG/DL (0.70-1.30); GLOMERULAR FILTRATION RATE > 60.0 (>42); GLUCOSE, FASTING 145 MG/DL (70-100); MAGNESIUM LEVEL 2.5 MG/DL (1.8-2.4); POTASSIUM SERUM 4.2 MEQ/L (3.5-5.1); SODIUM LEVEL 137 MEQ/L (136-145)
[2022-04-22] MEDS: INSULIN LISPRO (NovoLOG) PER UNIT SC SCH ×4 (07:30→20:49)
[2022-04-22 07:37] VITALS: BP 139/72
[2022-04-22] MEDS: DOCUSATE SODIUM 100MG CAPSULE PO SCH (08:18)
[2022-04-22] MEDS: PREGABALIN 100 MG CAP (LYRICA) PO SCH ×2 (08:18→20:48)
[2022-04-22 12:00] VITALS: BP 136/65
[2022-04-22] MEDS ORDERED: ceFAZolin SOD 1 GM in D5W MINI-BAG PLUS 50 ML IV ONE (14:30)
[2022-04-22] MEDS ORDERED: ceFAZolin SOD 3 GM in IV 1 EA IV ONE (14:30)
[2022-04-22] MEDS ORDERED: ceFAZolin SOD 2 GM in IV 1 EA IV ONE (14:30)
[2022-04-22] MEDS ORDERED: MUPIROCIN 2% OINT 22 GM TUBE As Ordered ONE (15:36)
[2022-04-22] MEDS ORDERED: ISOVUE-300 61% 50ML VIAL As Ordered ONE (15:36)
[2022-04-22] MEDS ORDERED: LIDOCAINE 1% SDV 30ML VIAL As Ordered ONE (15:36)
[2022-04-22] MEDS ORDERED: MIDAZOLAM INJ 2MG/2ML VIAL (J2250 PER 1MG) As Ordered ONE (15:47)
[2022-04-22] MEDS ORDERED: fentaNYL 100 MCG/2 ML INJECTION As Ordered ONE (15:47)
[2022-04-22] MEDS ORDERED: propofoL 200 MG/20 ML VIAL As Ordered ONE ×2 (16:31→17:29)
[2022-04-22] MEDS ORDERED: GLYCOPYRROLATE INJ 0.2 MG/ML 2 ML VIAL As Ordered ONE (16:31)
[2022-04-22 18:38] VITALS: BP 149/82
[2022-04-22] MEDS ORDERED: ACETAMINOPHEN TAB 650MG DOSE (2X325MG) PO PRN (18:50)
[2022-04-22 19:30] VITALS: BP 150/91
[2022-04-22] MEDS: ASCORBIC ACID 250 MG TAB PO SCH (20:48)
[2022-04-22] MEDS: SIMVASTATIN 20 MG TAB PO SCH (20:48)
[2022-04-23] VITALS: BP 156/86
[2022-04-23 04:00] VITALS: BP 148/73
[2022-04-23 04:01] LABS: HEMATOCRIT 38.6 % (42.0-52.0); MEAN CORPUSCULAR HEMOGLOBIN 27.9 pg (27.0-33.0); MEAN CORPUSCULAR HGB CONC 31.1 g/dl (32.0-36.5); MEAN CORPUSCULAR VOLUME 89.8 fl (80.0-96.0); PLATELET COUNT, AUTOMATED 103 10^3/uL (150-450); WHITE BLOOD COUNT 8.5 10^3/uL (4.0-10.0)
[2022-04-23 04:30] LABS: BLOOD UREA NITROGEN 27 MG/DL (7-18); CALCIUM LEVEL 8.5 MG/DL (8.8-10.2); CARBON DIOXIDE LEVEL 32 MEQ/L (21-32); CHLORIDE LEVEL 103 MEQ/L (98-107); CREATININE FOR GFR 1.23 MG/DL (0.70-1.30); GLOMERULAR FILTRATION RATE > 60.0 (>42); GLUCOSE, FASTING 187 MG/DL (70-100); POTASSIUM SERUM 4.2 MEQ/L (3.5-5.1); SODIUM LEVEL 138 MEQ/L (136-145)
[2022-04-23 08:00] VITALS: BP 162/76
[2022-04-23] MEDS: INSULIN LISPRO (NovoLOG) PER UNIT SC SCH ×2 (08:38→12:57)
[2022-04-23] MEDS: ASCORBIC ACID 250 MG TAB PO SCH (08:39)
[2022-04-23] MEDS: DOCUSATE SODIUM 100MG CAPSULE PO SCH (08:39)
[2022-04-23] MEDS: PREGABALIN 100 MG CAP (LYRICA) PO SCH (08:39)
[2022-04-23] MEDS ORDERED: APIXABAN 5 MG TAB (ELIQUIS) PO SCH (09:00)
[2022-04-23] MEDS ORDERED: TORSEMIDE 20 MG TAB PO SCH (10:15)
[2022-04-23] MEDS ORDERED: OMEGA-3 1000MG CAPSULE PO SCH (11:00)
[2022-04-23 11:41] VITALS: BP 138/76
[2022-04-23 12:44] VITALS: BP_SYST 158; BP_SYST 168; BP_DIAS 74; BP_DIAS 83
[2022-04-23] MEDS ORDERED: ACET1TAB55 PO (13:34)
[2022-04-23] MEDS ORDERED: OXYC-517 PO (13:34)
== END 2022-04-23 15:45 | disposition home or self-care (01) | DRG 243 ==
LOC: M ED 01:59 → M ED INP 02:00 → ENRESERV 06:07 → M PCU 07:00 → OBSVTOIN 04-22 09:55
PROVIDERS: ADMIT Internal Medicine; ATTEND Internal Medicine
PROC: 02HK3JZ Insertion of Pacemaker Lead into Right Ventricle, Percutaneous Approach (ICD-10-PCS; 2022-04-22)
PROC: 0JH604Z Insertion of Pacemaker, Single Chamber into Chest Subcutaneous Tissue and Fascia, Open Approach (ICD-10-PCS; principal; 2022-04-22 15:00)
DX: I49.5 Sick sinus syndrome (principal); I48.21 Permanent atrial fibrillation; J90 Pleural effusion, not elsewhere classified; I50.32 Chronic diastolic (congestive) heart failure; Z79.01 Long term (current) use of anticoagulants; J44.9 Chronic obstructive pulmonary disease, unspecified; I25.10 Atherosclerotic heart disease of native coronary artery without angina pectoris; I73.9 Peripheral vascular disease, unspecified; E11.42 Type 2 diabetes mellitus with diabetic polyneuropathy; I11.0 Hypertensive heart disease with heart failure; E78.5 Hyperlipidemia, unspecified; G47.33 Obstructive sleep apnea (adult) (pediatric); Z20.822 Contact with and (suspected) exposure to COVID-19; Z79.82 Long term (current) use of aspirin; Z79.899 Other long term (current) drug therapy; E66.9 Obesity, unspecified

== ENCOUNTER 2022-08-21 00:54 | Emergency (ER) | payer MEDICARE, MEDICAID ==
[~2022-08-21] VITALS: Ht 180.3 cm; Wt 127.2 kg
[~2022-08-21 00:54] MED LIST changes: +ACET1TAB55 PO; +CLOP75TA99 PO; +FISH1CAP26 PO; +OXYC-517 PO; -PLAV1TAB2 PO; +med rec comment
[2022-08-21 01:49] LABS: AMPHETAMINES LEVEL URINE NEGATIVE (NEGATIVE); BENZODIAZEPINES URINE NEGATIVE (NEGATIVE)
[2022-08-21 01:50] LABS: BARBITURATES URINE NEGATIVE (NEGATIVE); COCAINE METABOLITE URINE NEGATIVE (NEGATIVE); METHADONE URINE NEGATIVE (NEGATIVE); OPIATES URINE NEGATIVE (NEGATIVE); PHENCYCLIDINE URINE NEGATIVE (NEGATIVE)
[2022-08-21 02:01] LABS: BASO % 0.4 % (0.0-1.0); EOS # 0.2 10^3/uL (0.0-0.5); EOS % 1.5 % (0.0-3.0); HEMATOCRIT 38.3 % (42.0-52.0); HEMOGLOBIN 12.5 g/dl (13.5-17.5); LYMPH # 1.4 10^3/uL (1.5-5.0); LYMPH % 13.8 % (24.0-44.0); MEAN CORPUSCULAR HEMOGLOBIN 29.6 pg (27.0-33.0); MEAN CORPUSCULAR HGB CONC 32.6 g/dl (32.0-36.5); MEAN CORPUSCULAR VOLUME 90.8 fl (80.0-96.0); MONO # 0.7 10^3/uL (0.0-0.8); MONO % 6.8 % (2.0-8.0); NEUTROPHILS % 77.1 % (36.0-66.0); PLATELET COUNT, AUTOMATED 132 10^3/uL (150-450); RED BLOOD COUNT 4.22 10^6/uL (4.30-6.10); WHITE BLOOD COUNT 10.3 10^3/uL (4.0-10.0)
[2022-08-21 02:01] LABS: CANNABINOIDS URINE POSITIVE (NEGATIVE)
[2022-08-21] MEDS: COMBIVENT RESPIMAT 100-20MCG INHALER 4GM INH SCH ×3 (02:06→02:54)
[2022-08-21 02:29] LABS: CPK CREATINE PHOSPHOKINASE 110 U/L (46-171)
[2022-08-21 02:30] LABS: ALBUMIN 3.9 G/DL (3.2-5.2); ALKALINE PHOSPHATASE 94 U/L (46-116); ALT/SGPT 21 U/L (7.0-40); AST/SGOT 18 U/L (<34); BILIRUBIN,DIRECT 0.2 MG/DL (<0.4); BILIRUBIN,TOTAL 0.5 MG/DL (0.3-1.2); BLOOD UREA NITROGEN 39 MG/DL (9-23); CALCIUM LEVEL 9.1 MG/DL (8.3-10.6); CARBON DIOXIDE LEVEL 29 MMOL/L (20-31); CHLORIDE LEVEL 102 MMOL/L (98-107); CK-MB VALUE MASS 2.9 NG/ML (<3.6); CREATININE FOR GFR 1.15 MG/DL (0.70-1.30); GLOMERULAR FILTRATION RATE > 60.0 (>42); GLUCOSE, FASTING 210 MG/DL (74-106); MB/CK RELATIVE INDEX 2.63 (< OR =4); POTASSIUM SERUM 4.3 MMOL/L (3.5-5.1); SODIUM LEVEL 138 MMOL/L (136-145); TOTAL PROTEIN 6.9 G/DL (5.7-8.2)
[2022-08-21] MEDS ORDERED: ALBU8.5H INH (03:51)
[2022-08-21] MEDS ORDERED: AZIT500T5 PO (03:51)
[2022-08-21] MEDS ORDERED: PRED10TA2 PO (03:51)
[2022-08-21 04:09] VITALS: BP 123/55
== END 2022-08-21 04:12 | disposition home or self-care (01) ==
LOC: M ED 00:54
DX: J44.1 Chronic obstructive pulmonary disease with (acute) exacerbation (principal); I48.91 Unspecified atrial fibrillation; I50.9 Heart failure, unspecified; I25.10 Atherosclerotic heart disease of native coronary artery without angina pectoris; E11.9 Type 2 diabetes mellitus without complications; E78.5 Hyperlipidemia, unspecified; I10 Essential (primary) hypertension; G47.33 Obstructive sleep apnea (adult) (pediatric); Z95.5 Presence of coronary angioplasty implant and graft; Z98.61 Coronary angioplasty status; Z87.891 Personal history of nicotine dependence; I51.7 Cardiomegaly; Z95.810 Presence of automatic (implantable) cardiac defibrillator; Z79.01 Long term (current) use of anticoagulants; Z79.82 Long term (current) use of aspirin; Z79.899 Other long term (current) drug therapy
CPT/HCPCS: 71045; 80048; 80076; 80307; 81000; 81015; 82550; 82553; 83880; 84484; 85025; 87486; 87581; 87633; 87798; 93005; 93041; 94640; 94760; 96374; 99284; J1100

== ENCOUNTER → 2022-08-26 | Outpatient (REF) | payer MEDICARE, MEDICAID ==
[~2022-08-26] MED LIST changes: +AZIT500T5 PO; +PRED10TA2 PO
[2022-08-26 11:59] LABS: HEMOGLOBIN A1c 9.3 % (4.0-6.0)
[2022-08-26 12:11] LABS: CHOLESTEROL RISK RATIO 3.63 (<5); HDL CHOLESTEROL 36.6 MG/DL (>40)
[2022-08-26 12:12] LABS: FOLATE 9.97 NG/ML (>5.4)
== END ==
LOC: M SFHCCLAY 08:58
PROVIDERS: ATTEND Family Medicine
DX: E11.9 Type 2 diabetes mellitus without complications (principal); G63 Polyneuropathy in diseases classified elsewhere

== ENCOUNTER 2022-11-21 07:53 | Emergency (ER) | payer MEDICARE, MEDICAID ==
[~2022-11-21] VITALS: Ht 180.3 cm; Wt 127.3 kg
[2022-11-21] MEDS ORDERED: NIRMATRELVIR/RITONAVIR CO-PACK (EMERGENCY USE AUTH) PO SCH ×2 (09:00→13:00)
[2022-11-21 09:26] LABS: BASO % 0.3 % (0.0-1.0); EOS % 0.4 % (0.0-3.0); HEMATOCRIT 37.4 % (42.0-52.0); HEMOGLOBIN 11.7 g/dl (13.5-17.5); LYMPH # 0.6 10^3/uL (1.5-5.0); LYMPH % 8.9 % (24.0-44.0); MEAN CORPUSCULAR HEMOGLOBIN 28.7 pg (27.0-33.0); MEAN CORPUSCULAR HGB CONC 31.3 g/dl (32.0-36.5); MEAN CORPUSCULAR VOLUME 91.7 fl (80.0-96.0); MONO # 0.8 10^3/uL (0.0-0.8); MONO % 11.2 % (2.0-8.0); NEUTROPHILS # 5.5 10^3/uL (1.5-8.5); NEUTROPHILS % 78.8 % (36.0-66.0); PLATELET COUNT, AUTOMATED 116 10^3/uL (150-450); RED BLOOD COUNT 4.08 10^6/uL (4.30-6.10)
[2022-11-21 09:48] LABS: ALBUMIN 3.7 G/DL (3.2-5.2); ALKALINE PHOSPHATASE 88 U/L (46-116); ALT/SGPT 25 U/L (7.0-40); AST/SGOT 40 U/L (<34); BILIRUBIN,DIRECT 0.2 MG/DL (<0.4); BILIRUBIN,TOTAL 0.6 MG/DL (0.3-1.2); BLOOD UREA NITROGEN 27 MG/DL (9-23); CALCIUM LEVEL 9.1 MG/DL (8.3-10.6); CARBON DIOXIDE LEVEL 31 MMOL/L (20-31); CHLORIDE LEVEL 101 MMOL/L (98-107); CREATININE FOR GFR 1.05 MG/DL (0.70-1.30); GLOMERULAR FILTRATION RATE > 60.0 (>42); GLUCOSE, FASTING 253 MG/DL (74-106); SODIUM LEVEL 139 MMOL/L (136-145); TOTAL PROTEIN 6.6 G/DL (5.7-8.2)
[2022-11-21 10:08] LABS: INR 0.99; PROTHROMBIN TIME 13.3 SECONDS (12.5-14.5)
[2022-11-21] MEDS ORDERED: VENTAER INH (12:20)
[2022-11-21] MEDS ORDERED: HOME MED LIST COMPLETE! XX SCH (12:20)
[2022-11-21] MEDS ORDERED: MM S100C PO (12:20)
[2022-11-21] MEDS ORDERED: JARD1TAB3 PO (12:20)
[2022-11-21] MEDS ORDERED: PRED20TA PO (12:51)
[2022-11-21 13:08] VITALS: BP 159/84
== END 2022-11-21 13:23 | disposition home or self-care (01) ==
LOC: M ED 07:53
DX: U07.1 COVID-19 (principal); J44.9 Chronic obstructive pulmonary disease, unspecified; I48.91 Unspecified atrial fibrillation; I50.9 Heart failure, unspecified; I25.10 Atherosclerotic heart disease of native coronary artery without angina pectoris; E11.9 Type 2 diabetes mellitus without complications; I10 Essential (primary) hypertension; E78.5 Hyperlipidemia, unspecified; Z99.81 Dependence on supplemental oxygen; Z95.5 Presence of coronary angioplasty implant and graft; Z95.0 Presence of cardiac pacemaker; Z87.891 Personal history of nicotine dependence; Z79.01 Long term (current) use of anticoagulants; Z79.82 Long term (current) use of aspirin; Z79.899 Other long term (current) drug therapy

== ENCOUNTER → 2023-01-08 | Outpatient (REF) | payer MEDICARE, MEDICAID ==
[~2023-01-08] MED LIST changes: +JARD1TAB3 PO; +MM S100C PO; +PRED20TA PO; +VENTAER INH
[2023-01-08 17:34] LABS: BLOOD UREA NITROGEN 36 MG/DL (9-23); CALCIUM LEVEL 9.2 MG/DL (8.3-10.6); CARBON DIOXIDE LEVEL 30 MMOL/L (20-31); CHLORIDE LEVEL 101 MMOL/L (98-107); CREATININE FOR GFR 1.15 MG/DL (0.70-1.30); GLOMERULAR FILTRATION RATE > 60.0 (>42); GLUCOSE, FASTING 186 MG/DL (74-106); POTASSIUM SERUM 4.3 MMOL/L (3.5-5.1); SODIUM LEVEL 139 MMOL/L (136-145)
== END ==
LOC: M SFHCCLAY 11:31
PROVIDERS: ATTEND Physician Assistant Medical
DX: R42 Dizziness and giddiness (principal)

== ENCOUNTER → 2023-02-18 | Outpatient (REF) | payer MEDICARE, MEDICAID ==
[2023-02-18 11:28] LABS: BASO % 0.2 % (0.0-1.0); EOS # 0.1 10^3/uL (0.0-0.5); EOS % 1.2 % (0.0-3.0); HEMATOCRIT 36.9 % (42.0-52.0); HEMOGLOBIN 11.4 g/dl (13.5-17.5); LYMPH # 1.3 10^3/uL (1.5-5.0); LYMPH % 14.6 % (24.0-44.0); MEAN CORPUSCULAR HEMOGLOBIN 25.8 pg (27.0-33.0); MEAN CORPUSCULAR HGB CONC 30.9 g/dl (32.0-36.5); MEAN CORPUSCULAR VOLUME 83.5 fl (80.0-96.0); MONO # 0.6 10^3/uL (0.0-0.8); MONO % 6.4 % (2.0-8.0); NEUTROPHILS # 6.7 10^3/uL (1.5-8.5); NEUTROPHILS % 77.4 % (36.0-66.0); PLATELET COUNT, AUTOMATED 141 10^3/uL (150-450); RED BLOOD COUNT 4.42 10^6/uL (4.30-6.10); WHITE BLOOD COUNT 8.6 10^3/uL (4.0-10.0)
[2023-02-18 12:05] LABS: ALBUMIN 3.6 G/DL (3.2-5.2); ALKALINE PHOSPHATASE 85 U/L (46-116); ALT/SGPT 16 U/L (7.0-40); AST/SGOT 11 U/L (<34); BILIRUBIN,TOTAL 0.6 MG/DL (0.3-1.2); BLOOD UREA NITROGEN 30 MG/DL (9-23); CALCIUM LEVEL 9.6 MG/DL (8.3-10.6); CARBON DIOXIDE LEVEL 29 MMOL/L (20-31); CHLORIDE LEVEL 102 MMOL/L (98-107); CREATININE FOR GFR 0.96 MG/DL (0.70-1.30); GLOMERULAR FILTRATION RATE > 60.0 (>42); GLUCOSE, FASTING 133 MG/DL (74-106); POTASSIUM SERUM 3.9 MMOL/L (3.5-5.1); SODIUM LEVEL 141 MMOL/L (136-145); TOTAL PROTEIN 6.2 G/DL (5.7-8.2)
[2023-02-19 11:40] LABS: IRON (FE) 19 UG/DL (65-175)
[2023-02-19 12:03] LABS: HEMOGLOBIN A1c 7.6 % (4.0-6.0)
== END ==
LOC: M SFHCCLAY 06:54
PROVIDERS: ATTEND Family Medicine
DX: E11.42 Type 2 diabetes mellitus with diabetic polyneuropathy (principal); D64.9 Anemia, unspecified

== ENCOUNTER 2023-04-15 18:23 | Emergency (ER) | payer MEDICARE, MEDICAID ==
[~2023-04-15] VITALS: Ht 180.3 cm; Wt 119.1 kg
[2023-04-15] MEDS ORDERED: POLY510P14 (19:20)
[2023-04-15] MEDS ORDERED: FISH1CAP26 FT (19:20)
[2023-04-15] MEDS ORDERED: SENN-186 PO (19:20)
[2023-04-15] MEDS ORDERED: ATOR80TA59 (19:20)
[2023-04-15] MEDS ORDERED: OXYC-517 (19:20)
[2023-04-15] MEDS ORDERED: FERR325T3 PO (19:20)
[2023-04-15] MEDS ORDERED: OMEG10002 PO (19:20)
[2023-04-15] MEDS ORDERED: DOCU100C16 PO (19:20)
[2023-04-15] MEDS ORDERED: TRUL0.5I (19:20)
[2023-04-15] MEDS ORDERED: ACET1TAB55 PO (19:20)
[2023-04-15 19:35] LABS: BASO % 0.3 % (0.0-1.0); EOS # 0.2 10^3/uL (0.0-0.5); EOS % 1.3 % (0.0-3.0); HEMATOCRIT 30.3 % (42.0-52.0); LYMPH # 1.2 10^3/uL (1.5-5.0); LYMPH % 9.3 % (24.0-44.0); MEAN CORPUSCULAR HEMOGLOBIN 26.2 pg (27.0-33.0); MEAN CORPUSCULAR HGB CONC 29.7 g/dl (32.0-36.5); MEAN CORPUSCULAR VOLUME 88.1 fl (80.0-96.0); MONO # 0.7 10^3/uL (0.0-0.8); MONO % 5.3 % (2.0-8.0); NEUTROPHILS # 10.4 10^3/uL (1.5-8.5); NEUTROPHILS % 83.1 % (36.0-66.0); PLATELET COUNT, AUTOMATED 237 10^3/uL (150-450); RED BLOOD COUNT 3.44 10^6/uL (4.30-6.10); WHITE BLOOD COUNT 12.5 10^3/uL (4.0-10.0)
[2023-04-15 19:40] LABS: VENOUS BASE EXCESS 4.5 (-2.0-2.0); VENOUS O2 SATURATION 49.4 % (60.0-80.0); VENOUS PARTIAL PRESSURE CO2 56.5 mmHg (38.0-50.0); VENOUS PARTIAL PRESSURE O2 30.5 mmHg (30.0-50.0); VENOUS PH 7.357 UNITS (7.330-7.430); VENOUS STANDARD HCO3 27.6 MMOL/L; VENOUS TOTAL CO2 32.7 MMOL/L (24.0-28.0)
[2023-04-15] MEDS ORDERED: PREGABALIN 100 MG CAP (LYRICA) PO ONE (19:45)
[2023-04-15] MEDS ORDERED: oxyCODONE 5MG TAB PO ONE (19:45)
[2023-04-15 19:47] LABS: INR 1.3; PROTHROMBIN TIME 15.8 SECONDS (12.5-14.5)
[2023-04-15 20:02] LABS: ALBUMIN 2.9 G/DL (3.2-5.2); ALKALINE PHOSPHATASE 112 U/L (46-116); ALT/SGPT 30 U/L (7.0-40); AST/SGOT 18 U/L (<34); BILIRUBIN,DIRECT 0.3 MG/DL (<0.4); BILIRUBIN,TOTAL 0.6 MG/DL (0.3-1.2); BLOOD UREA NITROGEN 32 MG/DL (9-23); CALCIUM LEVEL 8.8 MG/DL (8.3-10.6); CARBON DIOXIDE LEVEL 36 MMOL/L (20-31); CHLORIDE LEVEL 101 MMOL/L (98-107); CK-MB VALUE MASS 1.6 NG/ML (<3.6); CPK CREATINE PHOSPHOKINASE 45 U/L (46-171); CREATININE FOR GFR 1.09 MG/DL (0.70-1.30); GLOMERULAR FILTRATION RATE > 60.0 (>42); GLUCOSE, FASTING 120 MG/DL (74-106); MB/CK RELATIVE INDEX 3.55 (< OR =4); SODIUM LEVEL 141 MMOL/L (136-145)
[2023-04-15 20:03] LABS: THYROID STIMULATING HORMONE 3.299 uIU/ML (0.55-4.78)
[2023-04-15] MEDS ORDERED: FUROSEMIDE 40MG/4ML VIAL IV ONE (20:15)
[2023-04-15 22:00] VITALS: TEMP 98.9
[2023-04-15 23:10] VITALS: BP 104/56; O2SAT 100
== END 2023-04-15 23:44 | disposition short-term general hospital (02) ==
LOC: M ED 18:23
DX: I50.9 Heart failure, unspecified (principal); E11.9 Type 2 diabetes mellitus without complications; I49.3 Ventricular premature depolarization; I10 Essential (primary) hypertension; J44.9 Chronic obstructive pulmonary disease, unspecified; E78.5 Hyperlipidemia, unspecified; G47.30 Sleep apnea, unspecified; Z86.79 Personal history of other diseases of the circulatory system; Z79.52 Long term (current) use of systemic steroids; Z79.01 Long term (current) use of anticoagulants; Z79.82 Long term (current) use of aspirin; Z79.899 Other long term (current) drug therapy
CPT/HCPCS: 71045; 80048; 80076; 82550; 82553; 82803; 83605; 83880; 84443; 84484; 85025; 85610; 87040; 87077; 87186; 87486; 87581; 87633; 87798; 93005; 93041; 94760; 96374; 99291; 99292; J1940

== ENCOUNTER → 2023-04-28 | Outpatient (REF) | payer MEDICARE, MEDICAID ==
[~2023-04-28] MED LIST changes: +ATOR80TA59; +DOCU100C16 PO; +FERR325T3 PO; +FISH1CAP26 FT; +OMEG10002 PO; +OXYC-517; +POLY510P14; +SENN-186 PO; +TRUL0.5I
[2023-04-28 12:27] LABS: HEMATOCRIT 30.6 % (42.0-52.0); MEAN CORPUSCULAR HGB CONC 29.4 g/dl (32.0-36.5); MEAN CORPUSCULAR VOLUME 88.4 fl (80.0-96.0); PLATELET COUNT, AUTOMATED 212 10^3/uL (150-450); RED BLOOD COUNT 3.46 10^6/uL (4.30-6.10); WHITE BLOOD COUNT 9.8 10^3/uL (4.0-10.0)
== END ==
LOC: M LABDRAWC 11:22
PROVIDERS: ATTEND Nurse Practitioner
DX: I50.9 Heart failure, unspecified (principal); L03.90 Cellulitis, unspecified

== ENCOUNTER → 2023-05-07 | Outpatient (CLI) | payer MEDICARE, MEDICAID | LOC: M CLY 10:41 | PROVIDERS: ATTEND Family Medicine | DX: J90 Pleural effusion, not elsewhere classified (principal); J98.11 Atelectasis ==

== ENCOUNTER → 2023-05-21 | Outpatient (REF) | payer MEDICARE, MEDICAID ==
[2023-05-21 19:01] LABS: BLOOD UREA NITROGEN 41 MG/DL (9-23); CALCIUM LEVEL 8.5 MG/DL (8.3-10.6); CARBON DIOXIDE LEVEL 39 MMOL/L (20-31); CHLORIDE LEVEL 97 MMOL/L (98-107); CREATININE FOR GFR 0.92 MG/DL (0.70-1.30); GLOMERULAR FILTRATION RATE > 60.0 (>42); GLUCOSE, FASTING 128 MG/DL (74-106); POTASSIUM SERUM 3.3 MMOL/L (3.5-5.1); SODIUM LEVEL 140 MMOL/L (136-145)
== END ==
LOC: M LABDRAWC 17:40
PROVIDERS: ATTEND Thoracic Surgery (Cardiothoracic Vascular Surgery)
DX: I25.10 Atherosclerotic heart disease of native coronary artery without angina pectoris (principal); J90 Pleural effusion, not elsewhere classified

== ENCOUNTER → 2023-06-15 | Outpatient (REF) | payer MEDICARE, MEDICAID ==
[2023-06-15 13:07] LABS: HEMATOCRIT 24.9 % (42.0-52.0); HEMOGLOBIN 7.4 g/dl (13.5-17.5); MEAN CORPUSCULAR HGB CONC 29.7 g/dl (32.0-36.5); MEAN CORPUSCULAR VOLUME 84.1 fl (80.0-96.0); RED BLOOD COUNT 2.96 10^6/uL (4.30-6.10); WHITE BLOOD COUNT 12.2 10^3/uL (4.0-10.0)
[2023-06-15 13:10] LABS: BLOOD UREA NITROGEN 59 MG/DL (9-23); CALCIUM LEVEL 8.4 MG/DL (8.3-10.6); CARBON DIOXIDE LEVEL 34 MMOL/L (20-31); CHLORIDE LEVEL 101 MMOL/L (98-107); CREATININE FOR GFR 1.14 MG/DL (0.70-1.30); GLOMERULAR FILTRATION RATE > 60.0 (>42); GLUCOSE, FASTING 222 MG/DL (74-106); POTASSIUM SERUM 4.4 MMOL/L (3.5-5.1); SODIUM LEVEL 142 MMOL/L (136-145)
[2023-06-15 13:32] LABS: PLATELET COUNT, AUTOMATED 81 10^3/uL (150-450)
== END ==
LOC: M LABDRAWC 11:55
PROVIDERS: ATTEND Nurse Practitioner Family
DX: R79.89 Other specified abnormal findings of blood chemistry (principal); D69.6 Thrombocytopenia, unspecified

== ENCOUNTER 2023-07-10 05:19 | Inpatient (IN) | payer MEDICARE, MEDICAID ==
[~2023-07-10] VITALS: Ht 180.3 cm; Wt 131.8 kg
[~2023-07-10 05:19] MED LIST changes: -ATOR80TA59; +ATOR80TA59 PO; -TRUL0.5I; +TRUL0.5I SC
[2023-07-10] MEDS ORDERED: FURO40TA2 PO (05:35)
[2023-07-10 06:05] LABS: VENOUS BASE EXCESS 4.6 (-2.0-2.0); VENOUS HCO3 30.9 MMOL/L (23.0-27.0); VENOUS O2 SATURATION 66.2 % (60.0-80.0); VENOUS PARTIAL PRESSURE CO2 56.1 mmHg (38.0-50.0); VENOUS PH 7.359 UNITS (7.330-7.430); VENOUS STANDARD HCO3 28.1 MMOL/L; VENOUS TOTAL CO2 32.6 MMOL/L (24.0-28.0)
[2023-07-10 06:18] LABS: BASO % 0.4 % (0.0-1.0); EOS # 0.1 10^3/uL (0.0-0.5); EOS % 0.6 % (0.0-3.0); HEMATOCRIT 26.7 % (42.0-52.0); HEMOGLOBIN 7.5 g/dl (13.5-17.5); LYMPH # 0.7 10^3/uL (1.5-5.0); LYMPH % 8.7 % (24.0-44.0); MEAN CORPUSCULAR HEMOGLOBIN 23.3 pg (27.0-33.0); MEAN CORPUSCULAR HGB CONC 28.1 g/dl (32.0-36.5); MEAN CORPUSCULAR VOLUME 82.9 fl (80.0-96.0); MONO # 0.6 10^3/uL (0.0-0.8); MONO % 7.4 % (2.0-8.0); NEUTROPHILS % 82.4 % (36.0-66.0); PLATELET COUNT, AUTOMATED 148 10^3/uL (150-450); RED BLOOD COUNT 3.22 10^6/uL (4.30-6.10); WHITE BLOOD COUNT 8.5 10^3/uL (4.0-10.0)
[2023-07-10 06:30] LABS: INR 1.37; PROTHROMBIN TIME 16.4 SECONDS (12.5-14.5)
[2023-07-10 06:37] LABS: ALBUMIN 3.1 G/DL (3.2-5.2); ALKALINE PHOSPHATASE 75 U/L (46-116); ALT/SGPT 16 U/L (7.0-40); AST/SGOT 21 U/L (<34); BILIRUBIN,DIRECT 0.3 MG/DL (<0.4); BILIRUBIN,TOTAL 0.7 MG/DL (0.3-1.2); BLOOD UREA NITROGEN 34 MG/DL (9-23); CARBON DIOXIDE LEVEL 33 MMOL/L (20-31); CHLORIDE LEVEL 102 MMOL/L (98-107); CK-MB VALUE MASS 1.5 NG/ML (<3.6); CPK CREATINE PHOSPHOKINASE 58 U/L (46-171); CREATININE FOR GFR 1.01 MG/DL (0.70-1.30); GLOMERULAR FILTRATION RATE > 60.0 (>42); GLUCOSE, FASTING 129 MG/DL (74-106); MB/CK RELATIVE INDEX 2.58 (< OR =4); POTASSIUM SERUM 4.6 MMOL/L (3.5-5.1); SODIUM LEVEL 142 MMOL/L (136-145); TOTAL PROTEIN 6.3 G/DL (5.7-8.2)
[2023-07-10 06:42] LABS: THYROID STIMULATING HORMONE 4.373 uIU/ML (0.55-4.78)
[2023-07-10 06:46] LABS: PROCALCITONIN <0.04 ng/ml
[2023-07-10 07:33] LABS: CK-MB VALUE MASS 2.5 NG/ML (<3.6)
[2023-07-10 07:34] LABS: MB/CK RELATIVE INDEX 4.62 (< OR =4)
[2023-07-10] MEDS ORDERED: ISOVUE-370 76% 100ML VIAL As Ordered ONE (07:47)
[2023-07-10] MEDS: TIOTROPIUM INHALER/CAPSULE (SPIRIVA) INH SCH (08:00)
[2023-07-10] MEDS ORDERED: LevoFLOXacin IV 750 MG in IV 1 EA IV ONE (09:10)
[2023-07-10] MEDS ORDERED: IPRATROPIUM 0.5MG/ALBUTEROL 2.5MG INH SOL UD 3ML (DUONEB) NEB ONE (09:15)
[2023-07-10] MEDS ORDERED: methylPREDNISolone 125MG 2ML VIAL IV ONE (09:15)
[2023-07-10] MEDS ORDERED: MED REC IN PROGRESS XX SCH (09:30)
[2023-07-10] MEDS ORDERED: IPRATROPIUM 0.5MG/ALBUTEROL 2.5MG INH SOL UD 3ML (DUONEB) NEB PRN (09:45)
[2023-07-10] MEDS ORDERED: **NOTE PATIENT COMMENT** MISC XX SCH (09:45)
[2023-07-10] MEDS ORDERED: METO1TAB32 PO (10:42)
[2023-07-10] MEDS ORDERED: POTA10PO PO (10:42)
[2023-07-10] MEDS ORDERED: PREG300C2 PO (10:42)
[2023-07-10] MEDS ORDERED: HOME MED LIST COMPLETE! XX SCH (10:45)
[2023-07-10] MEDS ORDERED: SENNA 8.6 MG TAB (SENOKOT) PO PRN (11:40)
[2023-07-10] MEDS ORDERED: GLUCAGON INJ 1MG VIAL SC PRN (11:40)
[2023-07-10] MEDS ORDERED: DEXTROSE 50% 50ML SYRINGE IV PRN (11:40)
[2023-07-10] MEDS ORDERED: GLUCOSE 4GM CHEW TABLET PO PRN (11:40)
[2023-07-10] MEDS: ASPIRIN 81MG CHEW TABLET PO SCH (13:27)
[2023-07-10] MEDS: ATORVASTATIN 20 MG TAB PO SCH (13:27)
[2023-07-10] MEDS: INSULIN LISPRO (NovoLOG) PER UNIT SC SCH ×3 (13:27→20:47)
[2023-07-10] MEDS: IPRATROPIUM 0.5MG/ALBUTEROL 2.5MG INH SOL UD 3ML (DUONEB) NEB SCH ×2 (13:53→19:15)
[2023-07-10 14:30] VITALS: BP 124/58; TEMP 96.5; O2SAT 97
[2023-07-10] MEDS: methylPREDNISolone 40MG 1ML VIAL IV SCH ×2 (17:16→22:50)
[2023-07-10] MEDS: FUROSEMIDE 40 MG TAB PO SCH (17:16)
[2023-07-10] MEDS: FORMOTEROL FUMARATE 20 MCG/2 ML INHALATION SOLUTION (PERFOROMIST) INH SCH (19:15)
[2023-07-10 20:04] VITALS: BP 137/76; TEMP 96.9; O2SAT 95
[2023-07-10] MEDS: PREGABALIN 100 MG CAP (LYRICA) PO SCH (20:48)
[2023-07-10] MEDS ORDERED: methylPREDNISolone 125MG 2ML VIAL IV SCH (22:00)
[2023-07-11] VITALS (32 sets, daily range): BP systolic 115–155; BP diastolic 66–87; TEMP 96.8–98; O2SAT 88–99
[2023-07-11] MEDS: IPRATROPIUM 0.5MG/ALBUTEROL 2.5MG INH SOL UD 3ML (DUONEB) NEB SCH ×4 (01:24→19:58)
[2023-07-11] MEDS: methylPREDNISolone 40MG 1ML VIAL IV SCH ×4 (04:20→21:43)
[2023-07-11 06:10] LABS: HEMATOCRIT 24.8 % (42.0-52.0); HEMOGLOBIN 7.1 g/dl (13.5-17.5); MEAN CORPUSCULAR HEMOGLOBIN 23.3 pg (27.0-33.0); MEAN CORPUSCULAR HGB CONC 28.6 g/dl (32.0-36.5); MEAN CORPUSCULAR VOLUME 81.3 fl (80.0-96.0); PLATELET COUNT, AUTOMATED 134 10^3/uL (150-450); RED BLOOD COUNT 3.05 10^6/uL (4.30-6.10); WHITE BLOOD COUNT 8.3 10^3/uL (4.0-10.0)
[2023-07-11 06:34] LABS: BLOOD UREA NITROGEN 38 MG/DL (9-23); CALCIUM LEVEL 8.2 MG/DL (8.3-10.6); CARBON DIOXIDE LEVEL 30 MMOL/L (20-31); CHLORIDE LEVEL 100 MMOL/L (98-107); CREATININE FOR GFR 0.99 MG/DL (0.70-1.30); GLOMERULAR FILTRATION RATE > 60.0 (>42); GLUCOSE, FASTING 274 MG/DL (74-106); POTASSIUM SERUM 4.3 MMOL/L (3.5-5.1); SODIUM LEVEL 139 MMOL/L (136-145)
[2023-07-11] MEDS: TIOTROPIUM INHALER/CAPSULE (SPIRIVA) INH SCH (08:17)
[2023-07-11] MEDS: FORMOTEROL FUMARATE 20 MCG/2 ML INHALATION SOLUTION (PERFOROMIST) INH SCH ×2 (08:17→19:58)
[2023-07-11] MEDS: LevoFLOXacin IV 750 MG in IV 1 EA IV SCH ×2 (09:15→17:47)
[2023-07-11] MEDS: INSULIN LISPRO (NovoLOG) PER UNIT SC SCH ×4 (09:16→21:53)
[2023-07-11] MEDS: POTASSIUM CHL PWD 20MEQ PACKET PO SCH (09:16)
[2023-07-11] MEDS: PREGABALIN 100 MG CAP (LYRICA) PO SCH ×2 (09:16→21:43)
[2023-07-11] MEDS: FUROSEMIDE 40 MG TAB PO SCH ×2 (09:16→17:46)
[2023-07-11] MEDS: ATORVASTATIN 20 MG TAB PO SCH (09:16)
[2023-07-11] MEDS: ASPIRIN 81MG CHEW TABLET PO SCH (09:16)
[2023-07-11] MEDS: METOPROLOL SUCC *XL* 12.5MG PER 1/2 TAB (TopROL *XL*) PO SCH (17:46)
[2023-07-12] MEDS: IPRATROPIUM 0.5MG/ALBUTEROL 2.5MG INH SOL UD 3ML (DUONEB) NEB SCH ×4 (01:18→19:12)
[2023-07-12 04:18] VITALS: BP 126/73; TEMP 97.1; O2SAT 91
[2023-07-12] MEDS: methylPREDNISolone 40MG 1ML VIAL IV SCH ×4 (04:20→21:47)
[2023-07-12 05:38] LABS: HEMATOCRIT 30.9 % (42.0-52.0); MEAN CORPUSCULAR HEMOGLOBIN 24.5 pg (27.0-33.0); MEAN CORPUSCULAR HGB CONC 29.4 g/dl (32.0-36.5); MEAN CORPUSCULAR VOLUME 83.3 fl (80.0-96.0); PLATELET COUNT, AUTOMATED 138 10^3/uL (150-450); RED BLOOD COUNT 3.71 10^6/uL (4.30-6.10)
[2023-07-12 05:46] LABS: HEMOGLOBIN 9.1 g/dl (13.5-17.5)
[2023-07-12 06:09] LABS: BLOOD UREA NITROGEN 44 MG/DL (9-23); CALCIUM LEVEL 8.2 MG/DL (8.3-10.6); CARBON DIOXIDE LEVEL 31 MMOL/L (20-31); CHLORIDE LEVEL 101 MMOL/L (98-107); CREATININE FOR GFR 1.13 MG/DL (0.70-1.30); GLOMERULAR FILTRATION RATE > 60.0 (>42); GLUCOSE, FASTING 262 MG/DL (74-106); POTASSIUM SERUM 4.5 MMOL/L (3.5-5.1); SODIUM LEVEL 140 MMOL/L (136-145)
[2023-07-12] MEDS: TIOTROPIUM INHALER/CAPSULE (SPIRIVA) INH SCH (08:06)
[2023-07-12] MEDS: FORMOTEROL FUMARATE 20 MCG/2 ML INHALATION SOLUTION (PERFOROMIST) INH SCH ×2 (08:06→19:12)
[2023-07-12 08:30] VITALS: BP 129/66; O2SAT 96
[2023-07-12] MEDS: LevoFLOXacin IV 750 MG in IV 1 EA IV SCH (09:31)
[2023-07-12] MEDS: PREGABALIN 100 MG CAP (LYRICA) PO SCH ×2 (09:32→21:47)
[2023-07-12] MEDS: ATORVASTATIN 20 MG TAB PO SCH (09:32)
[2023-07-12] MEDS: METOPROLOL SUCC *XL* 12.5MG PER 1/2 TAB (TopROL *XL*) PO SCH (09:32)
[2023-07-12] MEDS: FUROSEMIDE 40 MG TAB PO SCH ×2 (09:32→18:13)
[2023-07-12] MEDS: INSULIN LISPRO (NovoLOG) PER UNIT SC SCH ×4 (09:32→21:51)
[2023-07-12] MEDS: ASPIRIN 81MG CHEW TABLET PO SCH (09:32)
[2023-07-12] MEDS: POTASSIUM CHL PWD 20MEQ PACKET PO SCH (09:32)
[2023-07-12 12:45] VITALS: BP 128/70; TEMP 97.2; O2SAT 96
[2023-07-12 16:00] VITALS: BP 123/74; TEMP 97.4; O2SAT 96
[2023-07-12 20:00] VITALS: BP 118/69; TEMP 98.1; O2SAT 96
[2023-07-12] MEDS: LIDOCAINE 5% (LIDODERM) PATCH TD SCH (21:47)
[2023-07-13] VITALS (7 sets, daily range): BP systolic 113–136; BP diastolic 59–80; TEMP 96.7–97.8; O2SAT 92–98
[2023-07-13] MEDS: IPRATROPIUM 0.5MG/ALBUTEROL 2.5MG INH SOL UD 3ML (DUONEB) NEB SCH ×4 (01:24→20:15)
[2023-07-13] MEDS: methylPREDNISolone 40MG 1ML VIAL IV SCH ×2 (05:08→08:57)
[2023-07-13 07:36] LABS: HEMATOCRIT 31.1 % (42.0-52.0); HEMOGLOBIN 9.1 g/dl (13.5-17.5); MEAN CORPUSCULAR HEMOGLOBIN 24.6 pg (27.0-33.0); MEAN CORPUSCULAR HGB CONC 29.3 g/dl (32.0-36.5); MEAN CORPUSCULAR VOLUME 84.1 fl (80.0-96.0); PLATELET COUNT, AUTOMATED 125 10^3/uL (150-450); WHITE BLOOD COUNT 11.3 10^3/uL (4.0-10.0)
[2023-07-13 08:08] LABS: BLOOD UREA NITROGEN 47 MG/DL (9-23); CALCIUM LEVEL 8.3 MG/DL (8.3-10.6); CARBON DIOXIDE LEVEL 30 MMOL/L (20-31); CHLORIDE LEVEL 100 MMOL/L (98-107); CREATININE FOR GFR 1.07 MG/DL (0.70-1.30); GLOMERULAR FILTRATION RATE > 60.0 (>42); GLUCOSE, FASTING 285 MG/DL (74-106); POTASSIUM SERUM 4.4 MMOL/L (3.5-5.1); SODIUM LEVEL 137 MMOL/L (136-145)
[2023-07-13] MEDS: LevoFLOXacin IV 750 MG in IV 1 EA IV SCH (08:57)
[2023-07-13] MEDS: INSULIN LISPRO (NovoLOG) PER UNIT SC SCH ×4 (08:57→21:00)
[2023-07-13] MEDS: FUROSEMIDE 40 MG TAB PO SCH ×2 (08:58→18:01)
[2023-07-13] MEDS: PREGABALIN 100 MG CAP (LYRICA) PO SCH ×2 (08:58→20:32)
[2023-07-13] MEDS: POTASSIUM CHL PWD 20MEQ PACKET PO SCH (08:58)
[2023-07-13] MEDS: ATORVASTATIN 20 MG TAB PO SCH (08:58)
[2023-07-13] MEDS: ASPIRIN 81MG CHEW TABLET PO SCH (08:58)
[2023-07-13] MEDS: METOPROLOL SUCC *XL* 12.5MG PER 1/2 TAB (TopROL *XL*) PO SCH (08:58)
[2023-07-13] MEDS: TIOTROPIUM INHALER/CAPSULE (SPIRIVA) INH SCH (09:11)
[2023-07-13] MEDS: FORMOTEROL FUMARATE 20 MCG/2 ML INHALATION SOLUTION (PERFOROMIST) INH SCH ×2 (09:12→20:15)
[2023-07-13] MEDS ORDERED: HumuLIN R (REGULAR) INSULIN (NovoLIN R) **100U/ML** PER UNIT IV STA (10:53)
[2023-07-13] MEDS ORDERED: RAMELTEON 8 MG TAB (ROZEREM) PO PRN (18:05)
[2023-07-13] MEDS: rOPINIRole 2MG TAB PO SCH (20:31)
[2023-07-13] MEDS: LIDOCAINE 5% (LIDODERM) PATCH TD SCH (21:31)
[2023-07-14] MEDS: IPRATROPIUM 0.5MG/ALBUTEROL 2.5MG INH SOL UD 3ML (DUONEB) NEB SCH ×4 (02:01→21:32)
[2023-07-14 04:30] VITALS: BP 108/67; TEMP 96.3; O2SAT 95
[2023-07-14] MEDS: LevoFLOXacin 750 MG TABLET PO SCH (05:12)
[2023-07-14 06:37] LABS: HEMATOCRIT 31.7 % (42.0-52.0); HEMOGLOBIN 9.2 g/dl (13.5-17.5); MEAN CORPUSCULAR HEMOGLOBIN 24.6 pg (27.0-33.0); MEAN CORPUSCULAR VOLUME 84.8 fl (80.0-96.0); PLATELET COUNT, AUTOMATED 121 10^3/uL (150-450); RED BLOOD COUNT 3.74 10^6/uL (4.30-6.10); WHITE BLOOD COUNT 8.7 10^3/uL (4.0-10.0)
[2023-07-14 07:03] LABS: BLOOD UREA NITROGEN 45 MG/DL (9-23); CALCIUM LEVEL 8.5 MG/DL (8.3-10.6); CARBON DIOXIDE LEVEL 32 MMOL/L (20-31); CHLORIDE LEVEL 102 MMOL/L (98-107); CREATININE FOR GFR 1.01 MG/DL (0.70-1.30); GLOMERULAR FILTRATION RATE > 60.0 (>42); GLUCOSE, FASTING 206 MG/DL (74-106); POTASSIUM SERUM 4.1 MMOL/L (3.5-5.1); SODIUM LEVEL 140 MMOL/L (136-145)
[2023-07-14 07:56] VITALS: BP 100/64; TEMP 96.5; O2SAT 100
[2023-07-14] MEDS: FORMOTEROL FUMARATE 20 MCG/2 ML INHALATION SOLUTION (PERFOROMIST) INH SCH ×2 (08:13→21:32)
[2023-07-14] MEDS: TIOTROPIUM INHALER/CAPSULE (SPIRIVA) INH SCH (08:13)
[2023-07-14 08:27] VITALS: BP 105/63; TEMP 96.3; O2SAT 95
[2023-07-14] MEDS: METOPROLOL SUCC *XL* 12.5MG PER 1/2 TAB (TopROL *XL*) PO SCH (09:00)
[2023-07-14] MEDS ORDERED: methylPREDNISolone 40MG 1ML VIAL IV SCH (09:00)
[2023-07-14] MEDS: FUROSEMIDE 40 MG TAB PO SCH ×2 (09:00→17:14)
[2023-07-14] MEDS: ASPIRIN 81MG CHEW TABLET PO SCH (09:19)
[2023-07-14] MEDS: ATORVASTATIN 20 MG TAB PO SCH (09:21)
[2023-07-14] MEDS: PREGABALIN 100 MG CAP (LYRICA) PO SCH ×2 (09:21→21:00)
[2023-07-14] MEDS: predniSONE 20 MG TAB PO SCH (09:21)
[2023-07-14] MEDS: INSULIN LISPRO (NovoLOG) PER UNIT SC SCH ×5 (09:22→21:01)
[2023-07-14] MEDS: POTASSIUM CHL PWD 20MEQ PACKET PO SCH (09:23)
[2023-07-14 11:43] VITALS: BP 117/79; TEMP 96.7; O2SAT 90
[2023-07-14 16:10] VITALS: BP 120/64; TEMP 96.9; O2SAT 94
[2023-07-14 20:00] VITALS: BP 110/63; TEMP 97.2; O2SAT 92
[2023-07-14] MEDS: rOPINIRole 2MG TAB PO SCH (21:00)
[2023-07-14] MEDS: LIDOCAINE 5% (LIDODERM) PATCH TD SCH (21:01)
[2023-07-15] VITALS (7 sets, daily range): BP systolic 107–133; BP diastolic 56–79; TEMP 96.9–98; O2SAT 94–99
[2023-07-15] MEDS: IPRATROPIUM 0.5MG/ALBUTEROL 2.5MG INH SOL UD 3ML (DUONEB) NEB SCH ×4 (02:00→19:27)
[2023-07-15] MEDS: LevoFLOXacin 750 MG TABLET PO SCH (05:33)
[2023-07-15 05:44] LABS: BASO % 0.1 % (0.0-1.0); EOS % 0.3 % (0.0-3.0); HEMATOCRIT 29.8 % (42.0-52.0); HEMOGLOBIN 8.6 g/dl (13.5-17.5); LYMPH # 0.7 10^3/uL (1.5-5.0); LYMPH % 7.3 % (24.0-44.0); MEAN CORPUSCULAR HEMOGLOBIN 24.6 pg (27.0-33.0); MEAN CORPUSCULAR HGB CONC 28.9 g/dl (32.0-36.5); MEAN CORPUSCULAR VOLUME 85.4 fl (80.0-96.0); MONO # 0.7 10^3/uL (0.0-0.8); MONO % 7.3 % (2.0-8.0); NEUTROPHILS # 7.5 10^3/uL (1.5-8.5); NEUTROPHILS % 84.3 % (36.0-66.0); PLATELET COUNT, AUTOMATED 115 10^3/uL (150-450); RED BLOOD COUNT 3.49 10^6/uL (4.30-6.10); WHITE BLOOD COUNT 8.9 10^3/uL (4.0-10.0)
[2023-07-15 06:00] LABS: BLOOD UREA NITROGEN 35 MG/DL (9-23); CALCIUM LEVEL 8.8 MG/DL (8.3-10.6); CARBON DIOXIDE LEVEL 33 MMOL/L (20-31); CHLORIDE LEVEL 104 MMOL/L (98-107); CREATININE FOR GFR 0.97 MG/DL (0.70-1.30); GLOMERULAR FILTRATION RATE > 60.0 (>42); GLUCOSE, FASTING 167 MG/DL (74-106); POTASSIUM SERUM 4.3 MMOL/L (3.5-5.1); SODIUM LEVEL 140 MMOL/L (136-145)
[2023-07-15] MEDS: TIOTROPIUM INHALER/CAPSULE (SPIRIVA) INH SCH (08:06)
[2023-07-15] MEDS: FORMOTEROL FUMARATE 20 MCG/2 ML INHALATION SOLUTION (PERFOROMIST) INH SCH ×2 (08:07→19:27)
[2023-07-15] MEDS: INSULIN LISPRO (NovoLOG) PER UNIT SC SCH ×7 (09:08→20:28)
[2023-07-15] MEDS: FUROSEMIDE 40 MG TAB PO SCH ×2 (09:09→17:20)
[2023-07-15] MEDS: ATORVASTATIN 20 MG TAB PO SCH (09:09)
[2023-07-15] MEDS: ASPIRIN 81MG CHEW TABLET PO SCH (09:09)
[2023-07-15] MEDS: predniSONE 20 MG TAB PO SCH (09:10)
[2023-07-15] MEDS: POTASSIUM CHL PWD 20MEQ PACKET PO SCH (09:10)
[2023-07-15] MEDS: METOPROLOL SUCC *XL* 12.5MG PER 1/2 TAB (TopROL *XL*) PO SCH (09:10)
[2023-07-15] MEDS: PREGABALIN 100 MG CAP (LYRICA) PO SCH ×2 (09:10→20:26)
[2023-07-15] MEDS ORDERED: FLUZONE HIGH DOSE(65YR UP)QUAD/PF 240MCG/0.7ML SYRINGE IM.IMMUN ONE (10:25)
[2023-07-15 15:42] LABS: HEMATOCRIT 28.7 % (42.0-52.0); HEMOGLOBIN 8.2 g/dl (13.5-17.5)
[2023-07-15] MEDS: rOPINIRole 2MG TAB PO SCH (20:25)
[2023-07-15] MEDS: LIDOCAINE 5% (LIDODERM) PATCH TD SCH (20:25)
[2023-07-16] MEDS: IPRATROPIUM 0.5MG/ALBUTEROL 2.5MG INH SOL UD 3ML (DUONEB) NEB SCH ×3 (00:59→14:51)
[2023-07-16 04:03] VITALS: BP 131/81; TEMP 96.3; O2SAT 98
[2023-07-16] MEDS: LevoFLOXacin 750 MG TABLET PO SCH (05:12)
[2023-07-16 05:49] LABS: BLOOD UREA NITROGEN 42 MG/DL (9-23); CALCIUM LEVEL 8.6 MG/DL (8.3-10.6); CARBON DIOXIDE LEVEL 33 MMOL/L (20-31); CHLORIDE LEVEL 101 MMOL/L (98-107); CREATININE FOR GFR 0.92 MG/DL (0.70-1.30); GLOMERULAR FILTRATION RATE > 60.0 (>42); GLUCOSE, FASTING 197 MG/DL (74-106); POTASSIUM SERUM 3.9 MMOL/L (3.5-5.1); SODIUM LEVEL 140 MMOL/L (136-145)
[2023-07-16 07:12] LABS: EOS # 0.1 10^3/uL (0.0-0.5); EOS % 0.5 % (0.0-3.0); HEMATOCRIT 29.9 % (42.0-52.0); HEMOGLOBIN 8.6 g/dl (13.5-17.5); LYMPH # 0.8 10^3/uL (1.5-5.0); LYMPH % 8.3 % (24.0-44.0); MEAN CORPUSCULAR HEMOGLOBIN 24.6 pg (27.0-33.0); MEAN CORPUSCULAR HGB CONC 28.8 g/dl (32.0-36.5); MEAN CORPUSCULAR VOLUME 85.7 fl (80.0-96.0); MONO # 0.5 10^3/uL (0.0-0.8); MONO % 5.9 % (2.0-8.0); NEUTROPHILS # 7.7 10^3/uL (1.5-8.5); NEUTROPHILS % 84.9 % (36.0-66.0); PLATELET COUNT, AUTOMATED 113 10^3/uL (150-450); RED BLOOD COUNT 3.49 10^6/uL (4.30-6.10); WHITE BLOOD COUNT 9.1 10^3/uL (4.0-10.0)
[2023-07-16 07:28] LABS: IRON (FE) 29 UG/DL (65-175); PERCENT SATURATION 9.8 % (19.7-50.0); TOTAL IRON BINDING CAPACITY 297 UG/DL (250-425)
[2023-07-16 07:41] VITALS: BP 116/71; TEMP 96.5; O2SAT 97
[2023-07-16] MEDS: TIOTROPIUM INHALER/CAPSULE (SPIRIVA) INH SCH (08:36)
[2023-07-16] MEDS: FORMOTEROL FUMARATE 20 MCG/2 ML INHALATION SOLUTION (PERFOROMIST) INH SCH (08:37)
[2023-07-16] MEDS: POTASSIUM CHL PWD 20MEQ PACKET PO SCH (08:46)
[2023-07-16 08:47] VITALS: BP 116/71
[2023-07-16] MEDS: METOPROLOL SUCC *XL* 12.5MG PER 1/2 TAB (TopROL *XL*) PO SCH (08:47)
[2023-07-16] MEDS: FUROSEMIDE 40 MG TAB PO SCH (08:47)
[2023-07-16] MEDS: ATORVASTATIN 20 MG TAB PO SCH (08:47)
[2023-07-16] MEDS: ASPIRIN 81MG CHEW TABLET PO SCH (08:47)
[2023-07-16] MEDS: PREGABALIN 100 MG CAP (LYRICA) PO SCH (08:47)
[2023-07-16] MEDS: INSULIN LISPRO (NovoLOG) PER UNIT SC SCH ×4 (08:51→13:16)
[2023-07-16] MEDS ORDERED: predniSONE 10MG TAB PO SCH (09:00)
[2023-07-16] MEDS ORDERED: FUROSEMIDE 100MG/10ML VIAL IV ONE (10:30)
[2023-07-16 12:00] VITALS: BP 126/76; TEMP 97.6; O2SAT 98
[2023-07-16] MEDS ORDERED: LEVO1TAB40 PO (13:39)
== END 2023-07-16 17:25 | disposition home health service (06) | DRG 194 ==
LOC: M ED 05:19 → M ED INP 09:45 → ENRESERV 15:47 → M PCU 16:44
PROVIDERS: ADMIT Family Medicine; ATTEND Family Medicine
PROC: 30233N1 Transfusion of Nonautologous Red Blood Cells into Peripheral Vein, Percutaneous Approach (ICD-10-PCS; principal; 2023-07-11)
PROC: 0JBQ3ZZ Excision of Right Foot Subcutaneous Tissue and Fascia, Percutaneous Approach (ICD-10-PCS; 2023-07-14)
PROC: B246ZZZ Ultrasonography of Right and Left Heart (ICD-10-PCS; 2023-07-15)
DX: J18.9 Pneumonia, unspecified organism (principal); J44.0 Chronic obstructive pulmonary disease with (acute) lower respiratory infection; I50.22 Chronic systolic (congestive) heart failure; L97.219 Non-pressure chronic ulcer of right calf with unspecified severity; L97.229 Non-pressure chronic ulcer of left calf with unspecified severity; J96.11 Chronic respiratory failure with hypoxia; I11.0 Hypertensive heart disease with heart failure; E78.5 Hyperlipidemia, unspecified; E11.42 Type 2 diabetes mellitus with diabetic polyneuropathy; I25.10 Atherosclerotic heart disease of native coronary artery without angina pectoris; L97.519 Non-pressure chronic ulcer of other part of right foot with unspecified severity; I25.2 Old myocardial infarction; E11.621 Type 2 diabetes mellitus with foot ulcer; I48.91 Unspecified atrial fibrillation; L97.529 Non-pressure chronic ulcer of other part of left foot with unspecified severity; R26.89 Other abnormalities of gait and mobility; H35.30 Unspecified macular degeneration; D50.9 Iron deficiency anemia, unspecified; Z95.0 Presence of cardiac pacemaker; Z95.5 Presence of coronary angioplasty implant and graft; Z87.891 Personal history of nicotine dependence; Z79.01 Long term (current) use of anticoagulants; Z79.82 Long term (current) use of aspirin; Z79.84 Long term (current) use of oral hypoglycemic drugs; Z79.899 Other long term (current) drug therapy; Z88.0 Allergy status to penicillin; Z88.1 Allergy status to other antibiotic agents; Z99.81 Dependence on supplemental oxygen

== ENCOUNTER → 2023-07-27 | Outpatient (REF) | payer MEDICARE, MEDICAID ==
[~2023-07-27] MED LIST changes: +LEVO1TAB40 PO; +METO1TAB32 PO; +POTA10PO PO; +PREG300C2 PO
[2023-07-27 20:00] LABS: BLOOD UREA NITROGEN 35 MG/DL (9-23); CREATININE FOR GFR 0.89 MG/DL (0.70-1.30); GLOMERULAR FILTRATION RATE > 60.0 (>42)
== END ==
LOC: M LABDRAWC 18:14
PROVIDERS: ATTEND Physician Assistant
DX: I73.9 Peripheral vascular disease, unspecified (principal)

== ENCOUNTER 2023-09-06 18:40 | Inpatient (IN) | payer MEDICARE, MEDICAID ==
[~2023-09-06] VITALS: Ht 180.3 cm; Wt 128.1 kg
[2023-09-06 19:40] LABS: VENOUS HCO3 33.8 MMOL/L (23.0-27.0); VENOUS O2 SATURATION 59.4 % (60.0-80.0); VENOUS PARTIAL PRESSURE CO2 59.6 mmHg (38.0-50.0); VENOUS PARTIAL PRESSURE O2 33.6 mmHg (30.0-50.0); VENOUS PH 7.371 UNITS (7.330-7.430); VENOUS STANDARD HCO3 30.1 MMOL/L; VENOUS TOTAL CO2 35.6 MMOL/L (24.0-28.0)
[2023-09-06 19:49] LABS: BASO % 0.1 % (0.0-1.0); EOS # 0.1 10^3/uL (0.0-0.5); EOS % 1.4 % (0.0-3.0); HEMATOCRIT 31.2 % (42.0-52.0); HEMOGLOBIN 9.3 g/dl (13.5-17.5); LYMPH # 0.7 10^3/uL (1.5-5.0); MEAN CORPUSCULAR HEMOGLOBIN 26.1 pg (27.0-33.0); MEAN CORPUSCULAR HGB CONC 29.8 g/dl (32.0-36.5); MEAN CORPUSCULAR VOLUME 87.4 fl (80.0-96.0); MONO # 0.7 10^3/uL (0.0-0.8); MONO % 7.7 % (2.0-8.0); NEUTROPHILS # 7.9 10^3/uL (1.5-8.5); NEUTROPHILS % 83.3 % (36.0-66.0); PLATELET COUNT, AUTOMATED 104 10^3/uL (150-450); RED BLOOD COUNT 3.57 10^6/uL (4.30-6.10); WHITE BLOOD COUNT 9.5 10^3/uL (4.0-10.0)
[2023-09-06] MEDS: IPRATROPIUM 0.5MG/ALBUTEROL 2.5MG INH SOL UD 3ML (DUONEB) NEB ONE (20:15)
[2023-09-06 20:24] LABS: ALBUMIN 3.2 G/DL (3.2-5.2); ALKALINE PHOSPHATASE 118 U/L (46-116); ALT/SGPT 23 U/L (7.0-40); AST/SGOT 25 U/L (<34); BILIRUBIN,DIRECT 0.2 MG/DL (<0.4); BILIRUBIN,TOTAL 0.5 MG/DL (0.3-1.2); BLOOD UREA NITROGEN 53 MG/DL (9-23); CARBON DIOXIDE LEVEL 32 MMOL/L (20-31); CHLORIDE LEVEL 103 MMOL/L (98-107); CK-MB VALUE MASS 2.6 NG/ML (<3.6); CREATININE FOR GFR 1.19 MG/DL (0.70-1.30); GLOMERULAR FILTRATION RATE > 60.0 (>42); GLUCOSE, FASTING 200 MG/DL (74-106); SODIUM LEVEL 140 MMOL/L (136-145); TOTAL PROTEIN 6.5 G/DL (5.7-8.2)
[2023-09-06 20:25] LABS: THYROXINE (T4) 6.6 UG/DL (4.5-10.9)
[2023-09-06 20:26] LABS: THYROID STIMULATING HORMONE 5.963 uIU/ML (0.55-4.78)
[2023-09-06 20:28] LABS: CPK CREATINE PHOSPHOKINASE 89 U/L (46-171); MB/CK RELATIVE INDEX 2.92 (< OR =4)
[2023-09-06] MEDS ORDERED: ISOVUE-370 76% 100ML VIAL As Ordered ONE (20:38)
[2023-09-06 21:11] LABS: VENOUS BASE EXCESS 6.6 (-2.0-2.0); VENOUS HCO3 33.6 MMOL/L (23.0-27.0); VENOUS O2 SATURATION 54.5 % (60.0-80.0); VENOUS PARTIAL PRESSURE CO2 62.2 mmHg (38.0-50.0); VENOUS PARTIAL PRESSURE O2 31.3 mmHg (30.0-50.0); VENOUS PH 7.351 UNITS (7.330-7.430); VENOUS STANDARD HCO3 29.7 MMOL/L; VENOUS TOTAL CO2 35.6 MMOL/L (24.0-28.0)
[2023-09-06 21:43] LABS: CK-MB VALUE MASS 2.8 NG/ML (<3.6)
[2023-09-06 21:44] LABS: MB/CK RELATIVE INDEX 2.82 (< OR =4)
[2023-09-06 21:50] LABS: PROCALCITONIN 0.05 ng/ml
[2023-09-06] MEDS ORDERED: HOME MED LIST COMPLETE! XX SCH (23:45)
[2023-09-07] MEDS ORDERED: GLUCOSE 4GM CHEW TABLET PO PRN (00:20)
[2023-09-07] MEDS ORDERED: GLUCAGON INJ 1MG VIAL SC PRN (00:20)
[2023-09-07] MEDS ORDERED: DEXTROSE 50% 50ML SYRINGE IV PRN (00:20)
[2023-09-07] MEDS: HEPARIN SOD (PORCINE) 5000UNITS/ML 1ML VIAL/SYRINGE SC SCH (05:03)
[2023-09-07] MEDS: DOCUSATE SODIUM 100MG CAPSULE PO SCH (07:32)
[2023-09-07] MEDS: METOPROLOL SUCC *XL* 12.5MG PER 1/2 TAB (TopROL *XL*) PO SCH (07:45)
[2023-09-07] MEDS: FUROSEMIDE 40 MG TAB PO SCH (08:06)
[2023-09-07] MEDS: ASPIRIN 81MG CHEW TABLET PO SCH (08:06)
[2023-09-07] MEDS: INSULIN LISPRO (NovoLOG) PER UNIT SC SCH ×2 (08:06→20:25)
[2023-09-07 08:42] LABS: HEMATOCRIT 31.7 % (42.0-52.0); HEMOGLOBIN 9.1 g/dl (13.5-17.5); MEAN CORPUSCULAR HEMOGLOBIN 25.4 pg (27.0-33.0); MEAN CORPUSCULAR HGB CONC 28.7 g/dl (32.0-36.5); MEAN CORPUSCULAR VOLUME 88.5 fl (80.0-96.0); PLATELET COUNT, AUTOMATED 104 10^3/uL (150-450); RED BLOOD COUNT 3.58 10^6/uL (4.30-6.10); WHITE BLOOD COUNT 8.6 10^3/uL (4.0-10.0)
[2023-09-07] MEDS ORDERED: FERROUS SULFATE 325MG TAB PO SCH (09:00)
[2023-09-07] MEDS ORDERED: DOCUSATE SODIUM 100MG CAPSULE PO PRN (09:05)
[2023-09-07 09:13] LABS: CORTISOL AM 20.6 UG/DL (4.3-22.4)
[2023-09-07 09:16] LABS: PROCALCITONIN 0.06 ng/ml
[2023-09-07 09:17] LABS: ALBUMIN 3.1 G/DL (3.2-5.2); ALKALINE PHOSPHATASE 97 U/L (46-116); ALT/SGPT 22 U/L (7.0-40); AST/SGOT 21 U/L (<34); BILIRUBIN,TOTAL 0.8 MG/DL (0.3-1.2); BLOOD UREA NITROGEN 53 MG/DL (9-23); CALCIUM LEVEL 8.8 MG/DL (8.3-10.6); CARBON DIOXIDE LEVEL 36 MMOL/L (20-31); CHLORIDE LEVEL 104 MMOL/L (98-107); CREATININE FOR GFR 1.25 MG/DL (0.70-1.30); GLOMERULAR FILTRATION RATE > 60.0 (>42); GLUCOSE, FASTING 165 MG/DL (74-106); POTASSIUM SERUM 3.7 MMOL/L (3.5-5.1); SODIUM LEVEL 141 MMOL/L (136-145)
[2023-09-07] MEDS: PREGABALIN 100 MG CAP (LYRICA) PO SCH (09:19)
[2023-09-07] MEDS: TIOTROPIUM INHALER/CAPSULE (SPIRIVA) INH SCH (10:48)
[2023-09-07 13:06] LABS: APPEARANCE, BODY FLUID TURBID (CLEAR); ASCITES FL COLOR RED (COLORLESS); SOURCE, BODY FLUID ASCITES
[2023-09-07 13:12] LABS: SOURCE, BODY FLUID ALBUMIN ASCITES
[2023-09-07 13:17] LABS: SOURCE, BODY FLUID GLUCOSE ASCITES
[2023-09-07 13:19] LABS: SOURCE, BODY FLUID TOT PROTEIN ASCITES; TOTAL PROTEIN, BODY FLUID 3.4 G/DL (NOT ESTABLISHED)
[2023-09-07 16:31] VITALS: BP 113/80; TEMP 96.3; O2SAT 92
[2023-09-07 19:40] VITALS: BP 114/68; TEMP 97; O2SAT 100
[2023-09-07] MEDS: SODIUM CHLORIDE 0.9% 3ML NEB SOLUTION FOR INHALATION INH SCH (20:00)
[2023-09-07] MEDS: ALBUTEROL SULFATE 2.5MG/0.5ML INH NEB SOLN NEB PRN (20:01)
[2023-09-07] MEDS: ATORVASTATIN 20 MG TAB PO SCH (20:24)
[2023-09-07 23:39] VITALS: BP 100/56; TEMP 96.6; O2SAT 96
[2023-09-08] VITALS (7 sets, daily range): BP systolic 100–115; BP diastolic 55–70; TEMP 96.6–98.7; O2SAT 90–99
[2023-09-08 05:33] LABS: HEMATOCRIT 30.9 % (42.0-52.0); HEMOGLOBIN 9.1 g/dl (13.5-17.5); MEAN CORPUSCULAR HEMOGLOBIN 25.9 pg (27.0-33.0); MEAN CORPUSCULAR HGB CONC 29.4 g/dl (32.0-36.5); RED BLOOD COUNT 3.51 10^6/uL (4.30-6.10); WHITE BLOOD COUNT 8.9 10^3/uL (4.0-10.0)
[2023-09-08 05:57] LABS: ALBUMIN 2.8 G/DL (3.2-5.2); ALKALINE PHOSPHATASE 90 U/L (46-116); ALT/SGPT 20 U/L (7.0-40); AST/SGOT 21 U/L (<34); BILIRUBIN,TOTAL 0.8 MG/DL (0.3-1.2); BLOOD UREA NITROGEN 46 MG/DL (9-23); CALCIUM LEVEL 8.6 MG/DL (8.3-10.6); CARBON DIOXIDE LEVEL 36 MMOL/L (20-31); CHLORIDE LEVEL 103 MMOL/L (98-107); CREATININE FOR GFR 1.17 MG/DL (0.70-1.30); GLOMERULAR FILTRATION RATE > 60.0 (>42); GLUCOSE, FASTING 141 MG/DL (74-106); MAGNESIUM LEVEL 1.8 MG/DL (1.8-2.4); PHOSPHORUS LEVEL 3.4 MG/DL (2.4-5.1); POTASSIUM SERUM 4.1 MMOL/L (3.5-5.1); SODIUM LEVEL 142 MMOL/L (136-145); TOTAL PROTEIN 5.5 G/DL (5.7-8.2)
[2023-09-08 06:11] LABS: PLATELET COUNT, AUTOMATED 95 10^3/uL (150-450)
[2023-09-08] MEDS: FERROUS SULFATE 325MG TAB PO SCH (08:42)
[2023-09-08] MEDS: IPRATROPIUM 0.5MG/ALBUTEROL 2.5MG INH SOL UD 3ML (DUONEB) NEB PRN (16:56)
[2023-09-08] MEDS: HEPARIN SOD (PORCINE) 5000UNITS/ML 1ML VIAL/SYRINGE SC SCH (17:20)
[2023-09-09 03:42] VITALS: BP 111/57; TEMP 97.6; O2SAT 96
[2023-09-09 07:27] VITALS: BP 102/62; TEMP 97.4; O2SAT 100
[2023-09-09 12:15] VITALS: BP 99/57; TEMP 98; O2SAT 98
[2023-09-09 16:28] VITALS: BP 101/59; TEMP 97.6; O2SAT 98
[2023-09-09 19:07] VITALS: BP 105/59; TEMP 97.6; O2SAT 98
[2023-09-10] VITALS (7 sets, daily range): BP systolic 82–118; BP diastolic 51–66; TEMP 96.9–98; O2SAT 92–99
[2023-09-10 06:20] LABS: BASO % 0.3 % (0.0-1.0); EOS # 0.1 10^3/uL (0.0-0.5); EOS % 1.5 % (0.0-3.0); HEMATOCRIT 27.7 % (42.0-52.0); HEMOGLOBIN 8.4 g/dl (13.5-17.5); LYMPH # 0.6 10^3/uL (1.5-5.0); LYMPH % 8.7 % (24.0-44.0); MEAN CORPUSCULAR HEMOGLOBIN 26.5 pg (27.0-33.0); MEAN CORPUSCULAR HGB CONC 30.3 g/dl (32.0-36.5); MEAN CORPUSCULAR VOLUME 87.4 fl (80.0-96.0); MONO # 0.6 10^3/uL (0.0-0.8); MONO % 7.7 % (2.0-8.0); NEUTROPHILS # 5.9 10^3/uL (1.5-8.5); NEUTROPHILS % 81.2 % (36.0-66.0); RED BLOOD COUNT 3.17 10^6/uL (4.30-6.10); WHITE BLOOD COUNT 7.3 10^3/uL (4.0-10.0)
[2023-09-10 06:31] LABS: PLATELET COUNT, AUTOMATED 86 10^3/uL (150-450)
[2023-09-10 06:48] LABS: BLOOD UREA NITROGEN 41 MG/DL (9-23); CALCIUM LEVEL 8.2 MG/DL (8.3-10.6); CARBON DIOXIDE LEVEL 34 MMOL/L (20-31); CHLORIDE LEVEL 105 MMOL/L (98-107); CREATININE FOR GFR 1.09 MG/DL (0.70-1.30); GLOMERULAR FILTRATION RATE > 60.0 (>42); GLUCOSE, FASTING 155 MG/DL (74-106); MAGNESIUM LEVEL 1.9 MG/DL (1.8-2.4); POTASSIUM SERUM 3.8 MMOL/L (3.5-5.1); SODIUM LEVEL 138 MMOL/L (136-145)
[2023-09-10] MEDS: FUROSEMIDE 40 MG TAB PO SCH (09:00)
[2023-09-10] MEDS: MIDODRINE 5 MG TAB PO SCH (13:10)
[2023-09-10] MEDS: ACETAMINOPHEN TAB 650MG DOSE (2X325MG) PO PRN (22:08)
[2023-09-11] VITALS (7 sets, daily range): BP systolic 90–115; BP diastolic 57–71; TEMP 97.1–97.8; O2SAT 92–100
[2023-09-11 06:31] LABS: BASO % 0.3 % (0.0-1.0); EOS # 0.1 10^3/uL (0.0-0.5); EOS % 1.8 % (0.0-3.0); HEMATOCRIT 29.7 % (42.0-52.0); HEMOGLOBIN 8.9 g/dl (13.5-17.5); LYMPH # 0.6 10^3/uL (1.5-5.0); MEAN CORPUSCULAR HEMOGLOBIN 26.1 pg (27.0-33.0); MEAN CORPUSCULAR VOLUME 87.1 fl (80.0-96.0); MONO # 0.6 10^3/uL (0.0-0.8); MONO % 6.9 % (2.0-8.0); NEUTROPHILS # 6.6 10^3/uL (1.5-8.5); NEUTROPHILS % 82.4 % (36.0-66.0); PLATELET COUNT, AUTOMATED 100 10^3/uL (150-450); RED BLOOD COUNT 3.41 10^6/uL (4.30-6.10)
[2023-09-11 06:44] LABS: BLOOD UREA NITROGEN 42 MG/DL (9-23); CALCIUM LEVEL 8.2 MG/DL (8.3-10.6); CARBON DIOXIDE LEVEL 34 MMOL/L (20-31); CHLORIDE LEVEL 104 MMOL/L (98-107); CREATININE FOR GFR 1.14 MG/DL (0.70-1.30); GLOMERULAR FILTRATION RATE > 60.0 (>42); GLUCOSE, FASTING 155 MG/DL (74-106); MAGNESIUM LEVEL 1.9 MG/DL (1.8-2.4); POTASSIUM SERUM 4.2 MMOL/L (3.5-5.1); SODIUM LEVEL 140 MMOL/L (136-145)
[2023-09-11] MEDS: guaiFENesin ER TABLET 600 MG TAB PO SCH (15:05)
[2023-09-11] MEDS: NYSTATIN 100,000 UNITS/GM TOPICAL PWD 15GM TOP SCH (20:25)
[2023-09-12 03:47] VITALS: BP 96/60; TEMP 97.6; O2SAT 96
[2023-09-12 06:35] LABS: BASO % 0.2 % (0.0-1.0); EOS # 0.1 10^3/uL (0.0-0.5); EOS % 1.3 % (0.0-3.0); HEMOGLOBIN 8.9 g/dl (13.5-17.5); LYMPH # 0.5 10^3/uL (1.5-5.0); LYMPH % 5.8 % (24.0-44.0); MEAN CORPUSCULAR HEMOGLOBIN 26.2 pg (27.0-33.0); MEAN CORPUSCULAR HGB CONC 29.7 g/dl (32.0-36.5); MEAN CORPUSCULAR VOLUME 88.2 fl (80.0-96.0); MONO # 0.6 10^3/uL (0.0-0.8); MONO % 6.2 % (2.0-8.0); WHITE BLOOD COUNT 9.3 10^3/uL (4.0-10.0)
[2023-09-12 06:36] LABS: PLATELET COUNT, AUTOMATED 98 10^3/uL (150-450)
[2023-09-12 06:56] LABS: BLOOD UREA NITROGEN 45 MG/DL (9-23); CALCIUM LEVEL 8.4 MG/DL (8.3-10.6); CARBON DIOXIDE LEVEL 32 MMOL/L (20-31); CHLORIDE LEVEL 104 MMOL/L (98-107); GLOMERULAR FILTRATION RATE > 60.0 (>42); GLUCOSE, FASTING 186 MG/DL (74-106); POTASSIUM SERUM 4.1 MMOL/L (3.5-5.1); SODIUM LEVEL 140 MMOL/L (136-145)
[2023-09-12 08:35] VITALS: BP 99/63; TEMP 97; O2SAT 95
[2023-09-12] MEDS: SPIRONOLACTONE 6.25 MG PER 1/4 TAB PO SCH (08:56)
[2023-09-12 11:55] VITALS: BP 104/65; TEMP 97.6; O2SAT 95
[2023-09-12 16:16] VITALS: BP 111/65; TEMP 97.8; O2SAT 95
[2023-09-12] MEDS: SPIRONOLACTONE 25 MG TAB PO SCH (17:20)
[2023-09-12] MEDS: FUROSEMIDE 40MG/4ML VIAL IV SCH (17:20)
[2023-09-12 19:47] VITALS: BP 106/62; TEMP 97.6; O2SAT 97
[2023-09-12] MEDS: hydrOXYzine 50 MG TAB PO SCH (22:34)
[2023-09-12 23:58] VITALS: BP 99/60; TEMP 98; O2SAT 96
[2023-09-13 04:01] VITALS: BP 103/62; TEMP 98.2; O2SAT 96
[2023-09-13 06:33] LABS: BLOOD UREA NITROGEN 43 MG/DL (9-23); CALCIUM LEVEL 8.2 MG/DL (8.3-10.6); CARBON DIOXIDE LEVEL 32 MMOL/L (20-31); CHLORIDE LEVEL 104 MMOL/L (98-107); CREATININE FOR GFR 1.21 MG/DL (0.70-1.30); GLOMERULAR FILTRATION RATE > 60.0 (>42); GLUCOSE, FASTING 201 MG/DL (74-106); MAGNESIUM LEVEL 2.1 MG/DL (1.8-2.4); POTASSIUM SERUM 4.4 MMOL/L (3.5-5.1); SODIUM LEVEL 140 MMOL/L (136-145)
[2023-09-13 08:00] VITALS: BP 94/60; TEMP 97.8; O2SAT 95
[2023-09-13] MEDS: FUROSEMIDE 40MG/4ML VIAL IV ONE (11:45)
[2023-09-13 12:04] VITALS: BP 104/63; TEMP 97.5; O2SAT 96
[2023-09-13 16:07] VITALS: BP 110/68; TEMP 98; O2SAT 95
[2023-09-13] MEDS: FUROSEMIDE 100MG/10ML VIAL IV SCH (16:14)
[2023-09-13 19:28] VITALS: BP 101/55; TEMP 97.8; O2SAT 94
[2023-09-13 23:17] VITALS: BP 91/53; TEMP 97.6; O2SAT 100
[2023-09-14] VITALS (8 sets, daily range): BP systolic 95–107; BP diastolic 54–62; TEMP 97.3–98.3; O2SAT 94–97
[2023-09-14 02:07] LABS: FREE CORTISOL 24HR URINE 7 ug/24 hr (5-64); FREE CORTISOL URINE 7 ug/L (Undefined)
[2023-09-14 05:58] LABS: BASO % 0.1 % (0.0-1.0); EOS # 0.1 10^3/uL (0.0-0.5); EOS % 1.3 % (0.0-3.0); HEMOGLOBIN 8.6 g/dl (13.5-17.5); LYMPH # 0.6 10^3/uL (1.5-5.0); LYMPH % 6.3 % (24.0-44.0); MEAN CORPUSCULAR HEMOGLOBIN 26.4 pg (27.0-33.0); MEAN CORPUSCULAR HGB CONC 29.7 g/dl (32.0-36.5); MONO # 0.7 10^3/uL (0.0-0.8); MONO % 8.2 % (2.0-8.0); NEUTROPHILS # 7.4 10^3/uL (1.5-8.5); NEUTROPHILS % 83.8 % (36.0-66.0); PLATELET COUNT, AUTOMATED 100 10^3/uL (150-450); RED BLOOD COUNT 3.26 10^6/uL (4.30-6.10); WHITE BLOOD COUNT 8.8 10^3/uL (4.0-10.0)
[2023-09-14 14:01] LABS: BLOOD UREA NITROGEN 41 MG/DL (9-23); CALCIUM LEVEL 7.9 MG/DL (8.3-10.6); CARBON DIOXIDE LEVEL 32 MMOL/L (20-31); CHLORIDE LEVEL 102 MMOL/L (98-107); CREATININE FOR GFR 1.08 MG/DL (0.70-1.30); GLOMERULAR FILTRATION RATE > 60.0 (>42); GLUCOSE, FASTING 310 MG/DL (74-106); POTASSIUM SERUM 4.2 MMOL/L (3.5-5.1); SODIUM LEVEL 136 MMOL/L (136-145)
[2023-09-15 03:08] VITALS: BP 106/64; TEMP 97.4; O2SAT 95
[2023-09-15 04:07] LABS: DOPAMINE 105 ug/24 hr (0-510); DOPAMINE TOTAL URINE 105 ug/L (Undefined); EPINEPHRINE < 3 ug/24 hr (0-20); EPINEPHRINE TOTAL URINE <3 ug/L (Undefined); METANEPHRINE TOTAL URINE 52 ug/L (Undefined); METANEPHRINE URINE 52 ug/24 hr (58-276); NOREPINEPHRINE 30 ug/24 hr (0-135); NOREPINEPHRINE TOTAL URINE 30 ug/L (Undefined); NORMETANEPHRINE TOTAL URINE 300 ug/L (Undefined); NORMETANEPHRINE URINE 300 ug/24 hr (156-729)
[2023-09-15 05:55] LABS: BASO % 0.4 % (0.0-1.0); EOS # 0.1 10^3/uL (0.0-0.5); EOS % 1.4 % (0.0-3.0); HEMOGLOBIN 8.9 g/dl (13.5-17.5); LYMPH # 0.5 10^3/uL (1.5-5.0); LYMPH % 5.9 % (24.0-44.0); MEAN CORPUSCULAR HEMOGLOBIN 26.2 pg (27.0-33.0); MEAN CORPUSCULAR HGB CONC 29.7 g/dl (32.0-36.5); MEAN CORPUSCULAR VOLUME 88.2 fl (80.0-96.0); MONO # 0.7 10^3/uL (0.0-0.8); MONO % 7.7 % (2.0-8.0); NEUTROPHILS # 7.1 10^3/uL (1.5-8.5); NEUTROPHILS % 84.1 % (36.0-66.0); PLATELET COUNT, AUTOMATED 102 10^3/uL (150-450); WHITE BLOOD COUNT 8.4 10^3/uL (4.0-10.0)
[2023-09-15 06:17] LABS: BLOOD UREA NITROGEN 39 MG/DL (9-23); CALCIUM LEVEL 7.9 MG/DL (8.3-10.6); CARBON DIOXIDE LEVEL 32 MMOL/L (20-31); CHLORIDE LEVEL 103 MMOL/L (98-107); CREATININE FOR GFR 1.15 MG/DL (0.70-1.30); GLOMERULAR FILTRATION RATE > 60.0 (>42); GLUCOSE, FASTING 195 MG/DL (74-106); MAGNESIUM LEVEL 1.8 MG/DL (1.8-2.4); POTASSIUM SERUM 4.3 MMOL/L (3.5-5.1); SODIUM LEVEL 138 MMOL/L (136-145)
[2023-09-15 08:00] VITALS: BP 104/58; TEMP 97.3; O2SAT 98
[2023-09-15 11:51] VITALS: BP 110/80; TEMP 97.2; O2SAT 98
[2023-09-15] MEDS: INSULIN LISPRO (NovoLOG) PER UNIT SC STA (13:13)
[2023-09-15 15:46] VITALS: BP 106/60; TEMP 97; O2SAT 98
[2023-09-15 19:35] VITALS: BP 108/69; TEMP 97.2; O2SAT 97
[2023-09-15 23:04] VITALS: BP 95/53; TEMP 97.8; O2SAT 93
[2023-09-16 03:28] VITALS: BP 103/62; TEMP 97.3; O2SAT 94
[2023-09-16 06:17] LABS: BASO % 0.2 % (0.0-1.0); EOS # 0.1 10^3/uL (0.0-0.5); EOS % 1.3 % (0.0-3.0); HEMATOCRIT 29.2 % (42.0-52.0); HEMOGLOBIN 8.6 g/dl (13.5-17.5); LYMPH # 0.5 10^3/uL (1.5-5.0); LYMPH % 5.2 % (24.0-44.0); MEAN CORPUSCULAR HEMOGLOBIN 26.1 pg (27.0-33.0); MEAN CORPUSCULAR HGB CONC 29.5 g/dl (32.0-36.5); MEAN CORPUSCULAR VOLUME 88.8 fl (80.0-96.0); MONO # 0.7 10^3/uL (0.0-0.8); MONO % 8.5 % (2.0-8.0); NEUTROPHILS # 7.2 10^3/uL (1.5-8.5); NEUTROPHILS % 84.3 % (36.0-66.0); PLATELET COUNT, AUTOMATED 107 10^3/uL (150-450); RED BLOOD COUNT 3.29 10^6/uL (4.30-6.10); WHITE BLOOD COUNT 8.6 10^3/uL (4.0-10.0)
[2023-09-16 06:49] LABS: BLOOD UREA NITROGEN 34 MG/DL (9-23); CALCIUM LEVEL 8.4 MG/DL (8.3-10.6); CARBON DIOXIDE LEVEL 32 MMOL/L (20-31); CHLORIDE LEVEL 100 MMOL/L (98-107); CREATININE FOR GFR 1.12 MG/DL (0.70-1.30); GLOMERULAR FILTRATION RATE > 60.0 (>42); GLUCOSE, FASTING 235 MG/DL (74-106); POTASSIUM SERUM 4.6 MMOL/L (3.5-5.1); SODIUM LEVEL 136 MMOL/L (136-145)
[2023-09-16 08:00] VITALS: BP 106/62; TEMP 97.4; O2SAT 96
[2023-09-16] MEDS: INSULIN LISPRO (NovoLOG) PER UNIT SC SCH (09:52)
[2023-09-16 12:10] VITALS: BP 108/66; TEMP 97.6; O2SAT 96
[2023-09-16 16:50] VITALS: BP 133/75; TEMP 97.7; O2SAT 91
[2023-09-16 20:30] VITALS: BP 110/69; TEMP 97.9; O2SAT 90
[2023-09-16] MEDS: ALPRAZolam 0.25 MG TAB PO PRN (22:07)
[2023-09-17 05:40] VITALS: BP 114/69; TEMP 97.5; O2SAT 91
[2023-09-17 07:00] LABS: BASO % 0.2 % (0.0-1.0); EOS # 0.1 10^3/uL (0.0-0.5); EOS % 1.4 % (0.0-3.0); HEMOGLOBIN 8.6 g/dl (13.5-17.5); LYMPH # 0.5 10^3/uL (1.5-5.0); LYMPH % 7.7 % (24.0-44.0); MEAN CORPUSCULAR HEMOGLOBIN 25.9 pg (27.0-33.0); MEAN CORPUSCULAR HGB CONC 29.7 g/dl (32.0-36.5); MEAN CORPUSCULAR VOLUME 87.3 fl (80.0-96.0); MONO # 0.6 10^3/uL (0.0-0.8); MONO % 8.6 % (2.0-8.0); NEUTROPHILS # 5.4 10^3/uL (1.5-8.5); NEUTROPHILS % 81.6 % (36.0-66.0); PLATELET COUNT, AUTOMATED 106 10^3/uL (150-450); RED BLOOD COUNT 3.32 10^6/uL (4.30-6.10); WHITE BLOOD COUNT 6.6 10^3/uL (4.0-10.0)
[2023-09-17 07:26] LABS: BLOOD UREA NITROGEN 39 MG/DL (9-23); CALCIUM LEVEL 8.1 MG/DL (8.3-10.6); CARBON DIOXIDE LEVEL 32 MMOL/L (20-31); CHLORIDE LEVEL 103 MMOL/L (98-107); CREATININE FOR GFR 1.15 MG/DL (0.70-1.30); GLOMERULAR FILTRATION RATE > 60.0 (>42); GLUCOSE, FASTING 191 MG/DL (74-106); MAGNESIUM LEVEL 1.9 MG/DL (1.8-2.4); POTASSIUM SERUM 4.3 MMOL/L (3.5-5.1); SODIUM LEVEL 139 MMOL/L (136-145)
[2023-09-17 09:00] VITALS: BP 100/60; TEMP 97.3; O2SAT 90
[2023-09-17 13:20] VITALS: BP 122/64; TEMP 97.4; O2SAT 95
[2023-09-17 16:09] LABS: ADRENOCORTICOTROPHIC HORMONE 9.8 pg/mL (7.2-63.3); METANEPHRINE PLASMA <25.0 pg/mL (0.0-88.0); NORMETANEPHRINE PLASMA 165.8 pg/mL (0.0-285.2)
[2023-09-17 20:35] VITALS: BP 121/70; TEMP 97.5; O2SAT 93
[2023-09-18 05:34] VITALS: BP 117/72; TEMP 97.1; O2SAT 94
[2023-09-18 07:14] LABS: BLOOD UREA NITROGEN 41 MG/DL (9-23); CALCIUM LEVEL 8.5 MG/DL (8.3-10.6); CARBON DIOXIDE LEVEL 32 MMOL/L (20-31); CHLORIDE LEVEL 103 MMOL/L (98-107); CREATININE FOR GFR 1.23 MG/DL (0.70-1.30); GLOMERULAR FILTRATION RATE > 60.0 (>42); GLUCOSE, FASTING 279 MG/DL (74-106); POTASSIUM SERUM 4.6 MMOL/L (3.5-5.1); SODIUM LEVEL 138 MMOL/L (136-145)
[2023-09-18 14:00] VITALS: BP 113/67; TEMP 97.7; O2SAT 93
[2023-09-18] MEDS: SALMETEROL DISKUS 50MCG INHALER (SEREVENT) INH SCH (19:44)
[2023-09-18 20:00] VITALS: BP 127/72; TEMP 97.7; O2SAT 93
[2023-09-18] MEDS: LEVEMIR (INSULIN DETEMIR) 1 UNITS/0.01ML SC SCH (20:19)
[2023-09-18 21:04] VITALS: BP 127/72
[2023-09-18] MEDS: FUROSEMIDE injection 250 MG in D5W 225 ML IV SCH (21:04)
[2023-09-19 02:00] VITALS: BP 106/60
[2023-09-19 05:36] VITALS: BP 97/61; TEMP 97.9; O2SAT 90
[2023-09-19 06:02] LABS: BLOOD UREA NITROGEN 39 MG/DL (9-23); CALCIUM LEVEL 8.1 MG/DL (8.3-10.6); CARBON DIOXIDE LEVEL 35 MMOL/L (20-31); CHLORIDE LEVEL 102 MMOL/L (98-107); CREATININE FOR GFR 1.17 MG/DL (0.70-1.30); GLOMERULAR FILTRATION RATE > 60.0 (>42); GLUCOSE, FASTING 187 MG/DL (74-106); POTASSIUM SERUM 4.1 MMOL/L (3.5-5.1); SODIUM LEVEL 141 MMOL/L (136-145)
[2023-09-19 08:24] VITALS: BP 99/66; O2SAT 95
[2023-09-19 14:30] VITALS: BP 105/66; TEMP 97.7; O2SAT 95
[2023-09-19] MEDS: metOLazone 5 MG TAB PO ONE (14:32)
[2023-09-19 22:00] VITALS: BP 107/65; TEMP 98.6; O2SAT 95
[2023-09-20 02:00] VITALS: BP 107/65; TEMP 97.7; O2SAT 94
[2023-09-20 06:00] VITALS: BP 108/64; TEMP 97.7; O2SAT 95
[2023-09-20 06:37] LABS: CALCIUM LEVEL 8.7 MG/DL (8.3-10.6); CREATININE FOR GFR 1.27 MG/DL (0.70-1.30); MAGNESIUM LEVEL 1.9 MG/DL (1.8-2.4); POTASSIUM SERUM 3.8 MMOL/L (3.5-5.1)
[2023-09-20] MEDS: metOLazone 5 MG TAB PO SCH (09:03)
[2023-09-20 09:04] VITALS: BP 108/64
[2023-09-20 14:30] VITALS: BP 110/64; TEMP 97.5; O2SAT 98
[2023-09-20 20:16] VITALS: O2SAT 94
[2023-09-20 22:00] VITALS: BP 113/69; TEMP 97.7; O2SAT 92
[2023-09-21] VITALS (9 sets, daily range): BP systolic 103–122; BP diastolic 62–96; TEMP 97.9–98.4; O2SAT 90–97
[2023-09-21 07:08] LABS: CALCIUM LEVEL 8.5 MG/DL (8.3-10.6); CREATININE FOR GFR 1.34 MG/DL (0.70-1.30); GLOMERULAR FILTRATION RATE 55.5 (>42); MAGNESIUM LEVEL 1.9 MG/DL (1.8-2.4); POTASSIUM SERUM 3.6 MMOL/L (3.5-5.1)
[2023-09-22 06:00] VITALS: BP 111/61; TEMP 98.1; O2SAT 94
[2023-09-22 06:47] LABS: BASO % 0.4 % (0.0-1.0); EOS # 0.1 10^3/uL (0.0-0.5); EOS % 1.9 % (0.0-3.0); HEMATOCRIT 27.9 % (42.0-52.0); HEMOGLOBIN 8.3 g/dl (13.5-17.5); LYMPH # 0.6 10^3/uL (1.5-5.0); LYMPH % 7.8 % (24.0-44.0); MEAN CORPUSCULAR HGB CONC 29.7 g/dl (32.0-36.5); MEAN CORPUSCULAR VOLUME 87.5 fl (80.0-96.0); MONO # 0.7 10^3/uL (0.0-0.8); MONO % 9.2 % (2.0-8.0); NEUTROPHILS # 5.9 10^3/uL (1.5-8.5); NEUTROPHILS % 80.3 % (36.0-66.0); PLATELET COUNT, AUTOMATED 183 10^3/uL (150-450); RED BLOOD COUNT 3.19 10^6/uL (4.30-6.10); WHITE BLOOD COUNT 7.3 10^3/uL (4.0-10.0)
[2023-09-22 07:18] LABS: CALCIUM LEVEL 8.9 MG/DL (8.3-10.6); CREATININE FOR GFR 1.44 MG/DL (0.70-1.30); GLOMERULAR FILTRATION RATE 51.1 (>42); MAGNESIUM LEVEL 2.1 MG/DL (1.8-2.4); POTASSIUM SERUM 3.2 MMOL/L (3.5-5.1)
[2023-09-22 09:23] VITALS: BP 106/90
[2023-09-22 11:59] VITALS: BP 107/61
[2023-09-22] MEDS: POTASSIUM CHLORIDE 10MEQ SR TABLET PO ONE (12:00)
[2023-09-22] MEDS: MOM 30ML SUSPENSION UDC PO PRN (12:00)
[2023-09-22 14:00] VITALS: BP 125/67; TEMP 97.7; O2SAT 95
[2023-09-22 16:09] VITALS: BP 124/67
[2023-09-22 22:00] VITALS: BP 122/66; TEMP 97.7; O2SAT 91
[2023-09-23 06:03] VITALS: BP 119/66; TEMP 97.9; O2SAT 94
[2023-09-23 08:09] VITALS: O2SAT 91
[2023-09-23 08:14] LABS: CALCIUM LEVEL 8.7 MG/DL (8.3-10.6); CREATININE FOR GFR 1.61 MG/DL (0.70-1.30); GLOMERULAR FILTRATION RATE 44.9 (>42); MAGNESIUM LEVEL 2.4 MG/DL (1.8-2.4)
[2023-09-23] MEDS: FUROSEMIDE injection 250 MG in D5W 225 ML IV SCH (12:50)
[2023-09-23 14:00] VITALS: BP 121/71; TEMP 97.5; O2SAT 94
[2023-09-23 19:36] VITALS: O2SAT 93
[2023-09-23] MEDS: SENNA 8.6 MG TAB (SENOKOT) PO SCH (20:04)
[2023-09-23] MEDS: ANUSOL HC CREAM 30GM TOP SCH (20:05)
[2023-09-23 22:01] VITALS: BP 117/72; TEMP 98.1; O2SAT 92
[2023-09-24 05:20] VITALS: BP 114/71; TEMP 97.3; O2SAT 92
[2023-09-24 05:47] LABS: BASO % 0.3 % (0.0-1.0); EOS # 0.1 10^3/uL (0.0-0.5); EOS % 1.3 % (0.0-3.0); HEMATOCRIT 27.5 % (42.0-52.0); HEMOGLOBIN 8.3 g/dl (13.5-17.5); LYMPH # 0.6 10^3/uL (1.5-5.0); LYMPH % 6.1 % (24.0-44.0); MEAN CORPUSCULAR HEMOGLOBIN 26.2 pg (27.0-33.0); MEAN CORPUSCULAR HGB CONC 30.2 g/dl (32.0-36.5); MEAN CORPUSCULAR VOLUME 86.8 fl (80.0-96.0); MONO # 0.9 10^3/uL (0.0-0.8); MONO % 9.7 % (2.0-8.0); NEUTROPHILS # 7.7 10^3/uL (1.5-8.5); NEUTROPHILS % 82.2 % (36.0-66.0); PLATELET COUNT, AUTOMATED 208 10^3/uL (150-450); RED BLOOD COUNT 3.17 10^6/uL (4.30-6.10); WHITE BLOOD COUNT 9.4 10^3/uL (4.0-10.0)
[2023-09-24 06:12] LABS: CALCIUM LEVEL 8.8 MG/DL (8.3-10.6); CREATININE FOR GFR 1.54 MG/DL (0.70-1.30); GLOMERULAR FILTRATION RATE 47.2 (>42); MAGNESIUM LEVEL 2.4 MG/DL (1.8-2.4); POTASSIUM SERUM 4.1 MMOL/L (3.5-5.1)
[2023-09-24 08:24] VITALS: BP 113/69
[2023-09-24] MEDS: BISACODYL 10MG SUPP PR SCH (11:25)
[2023-09-24] MEDS: NITROGLYCERIN 2% OINT 1 GM *U/D* PKT TOP SCH (13:25)
[2023-09-24 14:00] VITALS: BP 114/71; TEMP 97.5; O2SAT 93
[2023-09-24 16:01] VITALS: BP 119/71
[2023-09-24 19:55] VITALS: BP 118/69; TEMP 97.7; O2SAT 94
[2023-09-25 00:33] LABS: APPEARANCE, URINE HAZY (CLEAR); BACTERIA, URINE AUTO NEGATIVE (NEGATIVE); BILIRUBIN, URINE AUTO NEGATIVE (NEGATIVE); BLOOD, URINE BLOOD 2+ (NEGATIVE); COLOR, URINE RED (YELLOW); GLUCOSE, URINE (UA) AUTO NEGATIVE (NEGATIVE); KETONE, URINE AUTO NEGATIVE (NEGATIVE); LEUKOCYTE ESTERASE, URINE AUTO NEGATIVE (NEGATIVE); NITRITE, URINE AUTO NEGATIVE (NEGATIVE); PROTEIN, URINE AUTO 2+ mg/dL (NEGATIVE); RBC, URINE AUTO TNTC /HPF (0-3); SPECIFIC GRAVITY URINE AUTO 1.009 (1.002-1.035); SQUAMOUS EPITHELIAL CELL UR AU 0 /HPF (0-6); UROBILINOGEN, URINE AUTO 0.2 mg/dL (0.0-2.0); WBC, URINE AUTO 2 /HPF (0-3)
[2023-09-25 00:39] LABS: BASO % 0.3 % (0.0-1.0); EOS # 0.1 10^3/uL (0.0-0.5); HEMATOCRIT 27.5 % (42.0-52.0); HEMOGLOBIN 8.5 g/dl (13.5-17.5); LYMPH # 0.7 10^3/uL (1.5-5.0); LYMPH % 7.8 % (24.0-44.0); MEAN CORPUSCULAR HEMOGLOBIN 26.6 pg (27.0-33.0); MEAN CORPUSCULAR HGB CONC 30.9 g/dl (32.0-36.5); MEAN CORPUSCULAR VOLUME 85.9 fl (80.0-96.0); MONO # 0.8 10^3/uL (0.0-0.8); MONO % 8.3 % (2.0-8.0); NEUTROPHILS # 7.8 10^3/uL (1.5-8.5); NEUTROPHILS % 82.1 % (36.0-66.0); PLATELET COUNT, AUTOMATED 226 10^3/uL (150-450); WHITE BLOOD COUNT 9.5 10^3/uL (4.0-10.0)
[2023-09-25 00:55] LABS: INR 1.07; PROTHROMBIN TIME 13.6 SECONDS (12.5-14.5)
[2023-09-25 01:07] LABS: ALBUMIN 2.5 G/DL (3.2-5.2); BILIRUBIN,TOTAL 0.4 MG/DL (0.3-1.2); CALCIUM LEVEL 8.7 MG/DL (8.3-10.6); CREATININE FOR GFR 1.75 MG/DL (0.70-1.30); GLOMERULAR FILTRATION RATE 40.8 (>42); TOTAL PROTEIN 5.9 G/DL (5.7-8.2)
[2023-09-25 05:55] VITALS: BP 117/69; TEMP 97.9; O2SAT 91
[2023-09-25 06:07] LABS: BASO % 0.3 % (0.0-1.0); EOS # 0.2 10^3/uL (0.0-0.5); EOS % 1.6 % (0.0-3.0); HEMATOCRIT 27.6 % (42.0-52.0); HEMOGLOBIN 8.3 g/dl (13.5-17.5); LYMPH # 0.7 10^3/uL (1.5-5.0); MEAN CORPUSCULAR HEMOGLOBIN 26.3 pg (27.0-33.0); MEAN CORPUSCULAR HGB CONC 30.1 g/dl (32.0-36.5); MEAN CORPUSCULAR VOLUME 87.3 fl (80.0-96.0); MONO % 10.8 % (2.0-8.0); NEUTROPHILS # 7.2 10^3/uL (1.5-8.5); NEUTROPHILS % 78.9 % (36.0-66.0); PLATELET COUNT, AUTOMATED 217 10^3/uL (150-450); RED BLOOD COUNT 3.16 10^6/uL (4.30-6.10); WHITE BLOOD COUNT 9.2 10^3/uL (4.0-10.0)
[2023-09-25 06:39] LABS: CALCIUM LEVEL 8.8 MG/DL (8.3-10.6); CREATININE FOR GFR 1.76 MG/DL (0.70-1.30); GLOMERULAR FILTRATION RATE 40.5 (>42); POTASSIUM SERUM 3.6 MMOL/L (3.5-5.1)
[2023-09-25] MEDS: POTASSIUM CHLORIDE 10MEQ SR TABLET PO SCH (12:19)
[2023-09-25 15:00] VITALS: BP 116/69; TEMP 97.5; O2SAT 94
[2023-09-25 21:18] VITALS: BP 113/70; TEMP 98.8; O2SAT 92
[2023-09-26 05:23] VITALS: BP 114/71; TEMP 97.5; O2SAT 92
[2023-09-26 06:08] LABS: BASO % 0.3 % (0.0-1.0); EOS # 0.1 10^3/uL (0.0-0.5); EOS % 1.4 % (0.0-3.0); HEMOGLOBIN 8.5 g/dl (13.5-17.5); LYMPH # 0.6 10^3/uL (1.5-5.0); LYMPH % 6.2 % (24.0-44.0); MEAN CORPUSCULAR HEMOGLOBIN 25.8 pg (27.0-33.0); MEAN CORPUSCULAR HGB CONC 30.4 g/dl (32.0-36.5); MEAN CORPUSCULAR VOLUME 85.1 fl (80.0-96.0); MONO # 0.9 10^3/uL (0.0-0.8); MONO % 9.7 % (2.0-8.0); NEUTROPHILS # 7.6 10^3/uL (1.5-8.5); NEUTROPHILS % 81.8 % (36.0-66.0); PLATELET COUNT, AUTOMATED 212 10^3/uL (150-450); RED BLOOD COUNT 3.29 10^6/uL (4.30-6.10); WHITE BLOOD COUNT 9.3 10^3/uL (4.0-10.0)
[2023-09-26 06:35] LABS: CALCIUM LEVEL 8.6 MG/DL (8.3-10.6); CREATININE FOR GFR 1.58 MG/DL (0.70-1.30); GLOMERULAR FILTRATION RATE 45.9 (>42); POTASSIUM SERUM 3.7 MMOL/L (3.5-5.1)
[2023-09-26] MEDS ORDERED: BISACODYL 10MG SUPP PR PRN (07:35)
[2023-09-26] MEDS: MIRALAX *UNIT DOSE* 17GM PACKET PO SCH (08:40)
[2023-09-26] MEDS: MIDODRINE 5 MG TAB PO SCH (08:41)
[2023-09-26] MEDS: POTASSIUM CHLORIDE 10MEQ SR TABLET PO SCH (12:06)
[2023-09-26 14:00] VITALS: BP 115/71; TEMP 97.5; O2SAT 94
[2023-09-26 19:25] VITALS: O2SAT 95
[2023-09-26 21:00] VITALS: BP 113/69; TEMP 97.5; O2SAT 91
[2023-09-27] VITALS (8 sets, daily range): BP systolic 91–116; BP diastolic 62–73; TEMP 97–97.5; O2SAT 91–95
[2023-09-27 05:50] LABS: BASO % 0.2 % (0.0-1.0); EOS # 0.1 10^3/uL (0.0-0.5); EOS % 1.2 % (0.0-3.0); HEMOGLOBIN 8.1 g/dl (13.5-17.5); LYMPH # 0.6 10^3/uL (1.5-5.0); LYMPH % 7.5 % (24.0-44.0); MEAN CORPUSCULAR HEMOGLOBIN 26.3 pg (27.0-33.0); MEAN CORPUSCULAR VOLUME 87.7 fl (80.0-96.0); MONO # 0.7 10^3/uL (0.0-0.8); MONO % 8.6 % (2.0-8.0); NEUTROPHILS # 6.9 10^3/uL (1.5-8.5); PLATELET COUNT, AUTOMATED 205 10^3/uL (150-450); RED BLOOD COUNT 3.08 10^6/uL (4.30-6.10); WHITE BLOOD COUNT 8.4 10^3/uL (4.0-10.0)
[2023-09-27 06:20] LABS: CALCIUM LEVEL 8.4 MG/DL (8.3-10.6); CREATININE FOR GFR 1.7 MG/DL (0.70-1.30); GLOMERULAR FILTRATION RATE 42.2 (>42); POTASSIUM SERUM 3.6 MMOL/L (3.5-5.1)
[2023-09-27 10:49] LABS: ABG BASE EXCESS 13.2 (-2.0-2.0); ABG HCO3 38.2 MMOL/L (22.0-26.0); ABG O2 SATURATION 93.4 % (95.0-99.0); ABG PARTIAL PRESSURE O2 67.3 mmHg (75.0-100.0); ABG STANDARD HCO3 36.8 MMOL/L. (22.0-26.0); ABG TOTAL CO2 39.8 MMOL/L (23.0-31.0); ABG pH (ARTERIAL) 7.484 UNITS (7.350-7.450)
[2023-09-27] MEDS: POTASSIUM CHLORIDE 10MEQ SR TABLET PO SCH (12:36)
[2023-09-28 05:22] VITALS: BP 113/69; TEMP 97.5; O2SAT 97
[2023-09-28 05:54] LABS: BASO % 0.3 % (0.0-1.0); EOS # 0.1 10^3/uL (0.0-0.5); EOS % 1.4 % (0.0-3.0); HEMATOCRIT 27.9 % (42.0-52.0); HEMOGLOBIN 8.2 g/dl (13.5-17.5); LYMPH # 0.7 10^3/uL (1.5-5.0); LYMPH % 6.8 % (24.0-44.0); MEAN CORPUSCULAR HEMOGLOBIN 25.8 pg (27.0-33.0); MEAN CORPUSCULAR HGB CONC 29.4 g/dl (32.0-36.5); MEAN CORPUSCULAR VOLUME 87.7 fl (80.0-96.0); MONO # 1.1 10^3/uL (0.0-0.8); MONO % 11.1 % (2.0-8.0); NEUTROPHILS # 7.9 10^3/uL (1.5-8.5); NEUTROPHILS % 79.8 % (36.0-66.0); PLATELET COUNT, AUTOMATED 207 10^3/uL (150-450); RED BLOOD COUNT 3.18 10^6/uL (4.30-6.10); WHITE BLOOD COUNT 9.9 10^3/uL (4.0-10.0)
[2023-09-28 06:20] LABS: CALCIUM LEVEL 8.6 MG/DL (8.3-10.6); CREATININE FOR GFR 1.69 MG/DL (0.70-1.30); GLOMERULAR FILTRATION RATE 42.4 (>42); PERCENT SATURATION 9.6 % (19.7-50.0); POTASSIUM SERUM 3.5 MMOL/L (3.5-5.1)
[2023-09-28 06:23] LABS: FERRITIN 80.2 NG/ML (10.5-307.3)
[2023-09-28] MEDS ORDERED: NITROGLYCERIN 2% OINT 1 GM *U/D* PKT TOP PRN (08:10)
[2023-09-28 11:32] VITALS: O2SAT 95
[2023-09-28 13:35] VITALS: BP 122/93; TEMP 97; O2SAT 94
[2023-09-28 14:00] VITALS: BP 99/60; TEMP 97.2; O2SAT 93
[2023-09-28 17:38] VITALS: BP 116/61
[2023-09-28 22:00] VITALS: BP 90/50; TEMP 97.7; O2SAT 94
[2023-09-28] MEDS: RAMELTEON 8 MG TAB (ROZEREM) PO PRN (23:16)
[2023-09-28 23:57] LABS: BASO % 0.2 % (0.0-1.0); EOS # 0.1 10^3/uL (0.0-0.5); EOS % 1.3 % (0.0-3.0); HEMATOCRIT 27.1 % (42.0-52.0); LYMPH # 0.6 10^3/uL (1.5-5.0); LYMPH % 7.7 % (24.0-44.0); MEAN CORPUSCULAR HEMOGLOBIN 26.1 pg (27.0-33.0); MEAN CORPUSCULAR HGB CONC 29.5 g/dl (32.0-36.5); MEAN CORPUSCULAR VOLUME 88.6 fl (80.0-96.0); MONO # 0.7 10^3/uL (0.0-0.8); MONO % 8.4 % (2.0-8.0); NEUTROPHILS # 6.7 10^3/uL (1.5-8.5); PLATELET COUNT, AUTOMATED 183 10^3/uL (150-450); RED BLOOD COUNT 3.06 10^6/uL (4.30-6.10); WHITE BLOOD COUNT 8.2 10^3/uL (4.0-10.0)
[2023-09-29 00:21] LABS: CK-MB VALUE MASS 2.2 NG/ML (<3.6)
[2023-09-29 00:24] LABS: ALBUMIN 2.6 G/DL (3.2-5.2); BILIRUBIN,TOTAL 0.3 MG/DL (0.3-1.2); CALCIUM LEVEL 8.1 MG/DL (8.3-10.6); CREATININE FOR GFR 1.75 MG/DL (0.70-1.30); GLOMERULAR FILTRATION RATE 40.8 (>42); MAGNESIUM LEVEL 2.7 MG/DL (1.8-2.4); POTASSIUM SERUM 3.8 MMOL/L (3.5-5.1); TOTAL PROTEIN 5.9 G/DL (5.7-8.2)
[2023-09-29 00:35] LABS: MB/CK RELATIVE INDEX 4.68 (< OR =4)
[2023-09-29] MEDS: MORPHINE 2 MG/ML 1ML VIAL IV ONE (01:01)
[2023-09-29 01:05] VITALS: BP 91/70; TEMP 97.3; O2SAT 96
[2023-09-29 05:36] VITALS: BP 111/88; TEMP 97.5; O2SAT 96
[2023-09-29 06:22] LABS: BASO % 0.3 % (0.0-1.0); EOS # 0.1 10^3/uL (0.0-0.5); EOS % 1.3 % (0.0-3.0); HEMATOCRIT 29.5 % (42.0-52.0); HEMOGLOBIN 8.6 g/dl (13.5-17.5); LYMPH # 0.6 10^3/uL (1.5-5.0); LYMPH % 6.8 % (24.0-44.0); MEAN CORPUSCULAR HGB CONC 29.2 g/dl (32.0-36.5); MEAN CORPUSCULAR VOLUME 89.1 fl (80.0-96.0); MONO # 0.8 10^3/uL (0.0-0.8); MONO % 8.4 % (2.0-8.0); NEUTROPHILS # 7.4 10^3/uL (1.5-8.5); NEUTROPHILS % 82.5 % (36.0-66.0); PLATELET COUNT, AUTOMATED 192 10^3/uL (150-450); RED BLOOD COUNT 3.31 10^6/uL (4.30-6.10)
[2023-09-29 06:54] LABS: CALCIUM LEVEL 8.1 MG/DL (8.3-10.6); CREATININE FOR GFR 1.74 MG/DL (0.70-1.30); POTASSIUM SERUM 3.6 MMOL/L (3.5-5.1)
[2023-09-29 14:00] VITALS: BP 123/60; TEMP 97.3; O2SAT 97
[2023-09-29 19:54] VITALS: O2SAT 95
[2023-09-29] MEDS: PREGABALIN 25 MG CAP (LYRICA) PO SCH (20:55)
[2023-09-29 21:49] VITALS: BP 109/61; TEMP 97.5; O2SAT 94
[2023-09-30] MEDS: MORPHINE 2 MG/ML 1ML VIAL IV PRN (04:13)
[2023-09-30 05:10] VITALS: O2SAT 95
[2023-09-30 06:00] VITALS: BP 107/68; TEMP 97.3; O2SAT 95
[2023-09-30 06:39] LABS: BASO # 0.1 10^3/uL (0.0-0.2); BASO % 0.4 % (0.0-1.0); EOS # 0.1 10^3/uL (0.0-0.5); HEMOGLOBIN 8.9 g/dl (13.5-17.5); LYMPH # 0.6 10^3/uL (1.5-5.0); LYMPH % 5.6 % (24.0-44.0); MEAN CORPUSCULAR HEMOGLOBIN 26.1 pg (27.0-33.0); MEAN CORPUSCULAR HGB CONC 29.7 g/dl (32.0-36.5); MONO # 0.8 10^3/uL (0.0-0.8); MONO % 7.5 % (2.0-8.0); NEUTROPHILS # 9.5 10^3/uL (1.5-8.5); NEUTROPHILS % 84.9 % (36.0-66.0); PLATELET COUNT, AUTOMATED 187 10^3/uL (150-450); RED BLOOD COUNT 3.41 10^6/uL (4.30-6.10); WHITE BLOOD COUNT 11.2 10^3/uL (4.0-10.0)
[2023-09-30 06:59] LABS: CALCIUM LEVEL 8.3 MG/DL (8.3-10.6); CREATININE FOR GFR 1.63 MG/DL (0.70-1.30); GLOMERULAR FILTRATION RATE 44.2 (>42); POTASSIUM SERUM 3.8 MMOL/L (3.5-5.1)
[2023-09-30] MEDS: MIDODRINE 2.5 MG TAB PO SCH (08:20)
[2023-09-30] MEDS: ALPRAZolam 0.25 MG TAB PO PRN (11:41)
[2023-09-30] MEDS ORDERED: MORPHINE 2 MG/ML 1ML VIAL IV PRN (12:15)
[2023-09-30] MEDS ORDERED: SENOKOT S TAB PO PRN (12:20)
[2023-09-30] MEDS ORDERED: MIRALAX *UNIT DOSE* 17GM PACKET PO PRN (12:20)
[2023-09-30] MEDS ORDERED: ANUSOL HC CREAM 30GM TOP PRN (12:20)
[2023-09-30] MEDS: LORazepam 1 MG TAB PO PRN (12:29)
[2023-09-30] MEDS: MORPHINE 10MG/0.5ML ORAL CONCENTRATE SOLUTION U/D SL PRN ×2 (12:30→17:04)
[2023-09-30] MEDS: SCOPOLAMINE 1MG TRANSDERMAL PATCH TOP SCH (17:03)
[2023-09-30 19:36] VITALS: O2SAT 95
== END 2023-10-01 12:46 | disposition expired | DRG 264 ==
LOC: M ED 18:40 → M ED INP 23:39 → ENRESERV 09-07 14:24 → M PCU 09-07 16:28 → M MSPAV 09-16 16:37
PROVIDERS: ADMIT Family Medicine; ATTEND Internal Medicine Nephrology
PROC: 0KBS0ZZ Excision of Right Lower Leg Muscle, Open Approach (ICD-10-PCS; 2023-09-07)
PROC: 0W9G3ZZ Drainage of Peritoneal Cavity, Percutaneous Approach (ICD-10-PCS; 2023-09-07)
PROC: B246ZZZ Ultrasonography of Right and Left Heart (ICD-10-PCS; 2023-09-07)
PROC: 0KBT0ZZ Excision of Left Lower Leg Muscle, Open Approach (ICD-10-PCS; principal; 2023-09-07 16:00)
DX: I13.0 Hypertensive heart and chronic kidney disease with heart failure and stage 1 through stage 4 chronic kidney disease, or unspecified chronic kidney disease (principal); I50.43 Acute on chronic combined systolic (congestive) and diastolic (congestive) heart failure; R18.8 Other ascites; J96.11 Chronic respiratory failure with hypoxia; J96.12 Chronic respiratory failure with hypercapnia; L97.419 Non-pressure chronic ulcer of right heel and midfoot with unspecified severity; L97.929 Non-pressure chronic ulcer of unspecified part of left lower leg with unspecified severity; J98.11 Atelectasis; C64.1 Malignant neoplasm of right kidney, except renal pelvis; C79.72 Secondary malignant neoplasm of left adrenal gland; J90 Pleural effusion, not elsewhere classified; I48.20 Chronic atrial fibrillation, unspecified; N17.9 Acute kidney failure, unspecified; E87.1 Hypo-osmolality and hyponatremia; E87.3 Alkalosis; Z66 Do not resuscitate; E78.5 Hyperlipidemia, unspecified; R91.8 Other nonspecific abnormal finding of lung field; I95.1 Orthostatic hypotension; E11.42 Type 2 diabetes mellitus with diabetic polyneuropathy; E11.51 Type 2 diabetes mellitus with diabetic peripheral angiopathy without gangrene; I73.9 Peripheral vascular disease, unspecified; D64.9 Anemia, unspecified; E11.621 Type 2 diabetes mellitus with foot ulcer; E11.628 Type 2 diabetes mellitus with other skin complications; E11.22 Type 2 diabetes mellitus with diabetic chronic kidney disease; K74.60 Unspecified cirrhosis of liver; D69.6 Thrombocytopenia, unspecified; N18.2 Chronic kidney disease, stage 2 (mild); E87.6 Hypokalemia; J44.9 Chronic obstructive pulmonary disease, unspecified; G47.33 Obstructive sleep apnea (adult) (pediatric); E66.01 Morbid (severe) obesity due to excess calories; I08.0 Rheumatic disorders of both mitral and aortic valves; H35.30 Unspecified macular degeneration; K60.2 Anal fissure, unspecified; R31.9 Hematuria, unspecified; I25.10 Atherosclerotic heart disease of native coronary artery without angina pectoris; I25.2 Old myocardial infarction; Z79.82 Long term (current) use of aspirin; Z79.899 Other long term (current) drug therapy; Z88.0 Allergy status to penicillin; Z88.1 Allergy status to other antibiotic agents; Z95.5 Presence of coronary angioplasty implant and graft; Z11.52 Encounter for screening for COVID-19; Z87.891 Personal history of nicotine dependence; Z99.81 Dependence on supplemental oxygen; Z95.0 Presence of cardiac pacemaker; Z89.429 Acquired absence of other toe(s), unspecified side; Z95.1 Presence of aortocoronary bypass graft